=== PATIENT | male | born 1945 | race Caucasian/White ===

== ENCOUNTER 2017-10-02 14:47 | Emergency (ER) | payer MEDICARE, OTHER, SELFPAY ==
[2017-10-02 14:53] VITALS: BP 146/89; PULSE 87; RESP 16; TEMP 36.7; O2SAT 93
[2017-10-02 14:57] VITALS: BP 124/73
--- NOTE | 2017-10-02 15:36 | DI.REPORT_ITS ---
SYMPTOM/DIAGNOSIS: COUGH, SHORTNESS OF BREATH R/O PNEUMONIA PA AND LATERAL CHEST: 10/02 The heart is not enlarged. There appears to be a coronary artery stent. The lungs are clear. No pleural effusion seen. CONCLUSION: No evidence of acute disease.
--- NOTE | 2017-10-02 15:38 | ED.GENADUL_ITS ---
Disposition Clinical Impression: URI (upper respiratory infection), Chronic cough, Bronchitis, Seasonal allergies Disposition: HOME Condition: Stable Instructions: Upper Respiratory Infection (ED), Acute Bronchitis (ED), Acute Cough (ED) Additional Instructions: Drink plenty of fluids and get plenty of rest. Take the steroids until finished. Take the allergy medicine daily. If you have no improvement of symptoms in the next 2-3 days, you may start the antibiotic. Follow-up with your scheduled appointment we have made for you at [facility] on October 18, 2017 at 11:15 AM. Return to the emergency department with any worsening or new concerning symptoms. Prescriptions: Azithromycin [Zithromax] 500 mg PO DAILY 5 Days tab Benzonatate [Tessalon Perles] 100 mg PO TID PRN #12 cap PRN Reason: Cough Loratadine [Claritin] 10 mg PO DAILY 30 Days tab Prednisone 50 mg PO DAILY 4 Days tablet Medical Decision Making - Radiology Data Radiology results: report reviewed, image reviewed Chest x-ray: Negative - Medical Decision Making 1500 -- 71-year-old male with a history of diabetes, coronary artery disease who presents for cough with clear sputum, sinus congestion and clear rhinorrhea with body aches for the past 2 weeks. No relief with Tussionex. No chest pain or shortness of breath. Normal ENT exam. Lungs clear to auscultation. Oxygen saturation 93% on room air. Patient appears nontoxic, airway intact and speaking full sentences. Differential diagnosis includes acute bronchitis, upper respiratory tract infection, pneumonia, seasonal allergies. Patient does state that he seems to develop similar symptoms once yearly around the same time. We discussed that this certainly could be allergies. Will give a dose of prednisone p.o. and send for chest x-ray. 1630 --chest x-ray negative. Patient feels good to go home. Discussed with patient that his symptoms can certainly be viral and/or allergies and will treat with prednisone, Tessalon Perles, Claritin. Also sent home with prescription for Zithromax if symptoms do not improve or worsen. Patient appears nontoxic and in no acute distress. Patient states he does not have a follow-up appointment with his PCP at the [facility] until 2019. Appointment was made by care management for patient with the [facility] on October 18, 2017 for reevaluation. Patient was instructed to return here with any concerns. History of Present Illness - General Chief complaint: RespSymp Stated complaint: SOB/COUGH Time Seen by Provider: 10/02/17 15:00 Source: patient Mode of arrival: ambulatory Limitations: no limitations - History of Present Illness Initial comments: Patient is a 71-year-old male presents here with complaint of cough with clear sputum, sinus congestion, clear nasal discharge, and body aches of the past 2 weeks. Patient states the cough and body aches is bothering him the most. He denies known fever. He has taken Tussionex [id number] without relief. He denies shortness of breath, chest pain, ear pain, sore throat, recent antibiotics or recent hospital admission. - Related Data Aspirin [Aspir 81] 81 mg PO DAILY 01/23/13 Insulin NPH Human Isophane [Novolin N] 18 unit SQ HS 01/23/13 MetFORMIN CR [Glucophage Xr] 500 mg PO BID 01/23/13 Metoprolol [Lopressor] 50 mg PO BID 01/23/13 Famotidine [Pepcid] 20 mg PO BID 01/28/14 Nitroglycerin [Nitrostat] 0.4 mg PO PRN PRN 01/28/14 Simvastatin 20 mg PO DAILY 01/28/14 Hydrochlorothiazide 12.5 mg PO DAILY 06/19/16 Testosterone [Androderm] 1 each TD DAILY 06/19/16 Benzonatate [Tessalon Perles] 200 mg PO TID PRN 12/29/16 Insulin NPH Human Isophane [Novolin N] 16 unit SQ DAILY 12/29/16 Study Drug X 3 Kinds For Gout PO DAILY 12/29/16 Azithromycin [Zithromax Z-Yogi] 250 mg PO DAILY #3 tab 12/30/16 Losartan [Cozaar] 100 mg PO QAM #30 tab 12/30/16 Azithromycin [Zithromax] 500 mg PO DAILY 5 Days tab 10/02/17 Benzonatate [Tessalon Perles] 100 mg PO TID PRN #12 cap 10/02/17 Loratadine [Claritin] 10 mg PO DAILY 30 Days tab 10/02/17 Prednisone 50 mg PO DAILY 4 Days tablet 10/02/17 Allergies Allergy/AdvReac Type Severity Reaction Status Date / Time amoxicillin [Amoxicillin] Allergy Mild Itching Unverified 06/19/16 12:02 Review of Systems Constitutional: denies: chills, fever Eyes: denies: eye pain ENT: congestion. denies: ear pain, dental pain Respiratory: cough. denies: shortness of breath Cardiovascular: denies: chest pain, dyspnea on exertion Gastrointestinal: denies: abdominal pain, nausea, vomiting Genitourinary: denies: urgency, dysuria, frequency Musculoskeletal: denies: back pain Skin: denies: rash, lesions Neurological: denies: headache, weakness, numbness Past Medical History - Past Medical History Medical history: CAD, diabetes, hypertension Surgical history: angioplasty/stent, other (Carotid surgery) - Social History Smoking status: never smoker Alcohol use: occasionally Drug use: none General Exam - General Limitations: no limitations General appearance: alert, in no apparent distress - Eye Eye exam: Present: PERRL, EOMI. Absent: conjunctival injection - ENT ENT exam: Present: normal orophraynx, mucous membranes moist, TM's normal bilaterally, other (No bilateral frontal or maxillary sinus tenderness.) - Neck Neck exam: Present: normal inspection. Absent: lymphadenopathy - Respiratory Respiratory exam: Present: normal lung sounds bilaterally. Absent: respiratory distress, wheezes, rales, rhonchi, stridor - Cardiovascular Cardiovascular Exam: Present: regular rate, normal rhythm. Absent: bradycardia , tachycardia - Neurological Exam Neurological exam: Present: alert, oriented X3 - Psychiatric Psychiatric exam: Present: normal affect - Skin Skin exam: Present: warm, dry, intact Course Vital Signs - 24 hr 10/02/17 10/02/17 14:53 14:57 Temperature 98.1 F Pulse 87 Respiratory 16 Rate Blood Pressure 146/89 124/73 Pulse Oximetry 93 L
[2017-10-02] MEDS: predniSONE 20 MG TAB 60 MG PO (16:05)
--- NOTE | 2017-10-02 16:30 | DI.VRAD_ITS ---
EXAM: XR Chest, 2 Views CLINICAL HISTORY: 71 years old, male; Signs and symptoms; Cough TECHNIQUE: Frontal and lateral views of the chest. COMPARISON: [facility] - PORTABLE CHEST ONE VIEW 12/29/2016 2:40 PM FINDINGS: Lungs: Unremarkable. No consolidation. Pleural space: Unremarkable. No pneumothorax. Heart: Unremarkable. No cardiomegaly. Mediastinum: Unremarkable. Bones/joints: Unremarkable. IMPRESSION: No acute cardiopulmonary pathology. Dictated and Authenticated by: Vic Damico MD. Ordering:SATYA MATTHEWS MD
--- NOTE | 2017-10-02 16:36 | PDOC.ERCMPRO ---
Care Management Progress Note 10/02-Dr. Moralez requested assistance with a PCP (Merlyn Grande at [facility] in [place]) f/u in 1-2 weeks for bronchitis and allergies. Called [facility] and spoke with Pamela. Pamela scheduled Shukri (their soonest available appt) for October 18 at 11:[address] Moralez aware of the above appt and patient given an appt card.
--- NOTE | 2017-10-02 16:38 | CMPROGNOTE_ITS ---
Care Management Progress Note 10/02-Dr. Moralez requested assistance with a PCP (Merlyn Grande at [facility] in [place]) f/u in 1-2 weeks for bronchitis and allergies. Called [facility] and spoke with Pamela. Pamela scheduled Shukri (their soonest available appt) for October 18 at 11:[address] Moralez aware of the above appt and patient given an appt card.
== END 2017-10-02 17:05 | disposition home or self-care (01) ==
PROVIDERS: Emergency Provider Physician Assistant
DX: J06.9 Acute upper respiratory infection, unspecified (principal); J20.9 Acute bronchitis, unspecified; J30.2 Other seasonal allergic rhinitis; E11.22 Type 2 diabetes mellitus with diabetic chronic kidney disease; Z79.4 Long term (current) use of insulin; I12.9 Hypertensive chronic kidney disease with stage 1 through stage 4 chronic kidney disease, or unspecified chronic kidney disease; N18.9 Chronic kidney disease, unspecified
CPT/HCPCS: 71046; 99283; 99284; J7512

== ENCOUNTER 2022-08-20 10:24 | Emergency (ER) | payer OTHER, SELFPAY ==
[2022-08-20] VITALS (32 sets, daily range): BP systolic 114–178; BP diastolic 47–96; PULSE 84–96; RESP 14–25; O2SAT 89–96
--- NOTE | 2022-08-20 10:30 | RT.EKG_ITS ---
APPROVED REPORT Exam: Resting ECG Reason for Exam: dizzy Patient Location: E HR:89 bpm ECG Measurements Heart Rate 89 AXIS GA 197 P -14 QRSd 143 QRS -30 QT 387 T -39 QTc 472 Conclusion Sinus rhythm..rate 80's Left bundle branch block...QRSd>120, broad/notched R ST elevation secondary to IVCD
--- NOTE | 2022-08-20 10:45 | DI.CT_ITS ---
Exam(s) CT HEAD - STROKE PROTOCOL EXAM: CT HEAD - STROKE PROTOCOL CLINICAL HISTORY: expressive aphasia, word finding difficulties. TECHNIQUE: Imaging Protocol: Axial computed tomography images with coronal and sagittal reformatted images were created and reviewed COMPARISON: CR CHEST 2 VIEWS PA,LAT from 10/02/2017 FINDINGS: There are no skull fractures. There is no fluid in the visualized paranasal sinuses. Post inflammato ry retention cysts noted in the right maxillary sinus. No associated fluid level. There is no evidence of intracranial hemorrhage, mass effect, or shift of midline structures. There are no extra-axial fluid collections. The ventricles are not enlarged or shifted and there is no blo od within the ventricular system nor within the basal cisterns. However, there is an abnormal asymmetric area of hypodensity in the upper left frontal lobe consisten t with nonhemorrhagic infarct. Measures approximately 2 x 1.5 cm. IMPRESSION: Nonhemorrhagic left frontal lobe infarct. Report called by myself to ER physician RADIATION DOSE DELIVERED: 723.33mGy.cm Total DLP DATA REPOSITORY: All CT scans at this facility are submitted to the National Radiology Data Registry (NRDR) Dose Index Registry (DIR) with the [employer] ([employer]). RADIATION OPTIMIZATION: All CT scans at this facility use at least one of these dose optimization te chniques: automated exposure control; mA and/or kV adjustment per patient size (includes targeted exa ms where dose is matched to clinical indication); or iterative reconstruction.
[2022-08-20 10:59] LABS: Abs Immature Grans 0.02 10^3/uL (0.0-0.06); Absolute Basophil Count 0.04 10^3/uL (0.0-0.2); Absolute Eosinophil Count 0.14 10^3/uL (0.0-0.7); Absolute Lymphocyte Count 2.51 10^3/uL (1.2-3.4); Absolute Monocyte Count 0.52 10^3/uL (0.1-0.8); Absolute Neutrophil Count 7.32 10^3/uL (1.2-6.7); Basophils % 0.4; Eosinophils % 1.3; HCT 53.1 % (40.0-50.0); Immature Grans % 0.2; Lymphocytes % 23.8; MCH 29.3 pg (27.0-33.0); MCV 91 fL (80-95); MPV 11.7 fL (8.0-11.0); Monocytes % 4.9; Neutrophils % 69.4; Platelet Count 181 10^3/uL (130-400); RBC 5.81 10^6/uL (4.36-5.78); RDW 15.9 % (11.8-14.1); RDW-SD 52.7 fL; WBC 10.55 10^3/uL (4.4-10.8)
[2022-08-20 11:09] LABS: Prothrombin Time 10.4 sec (9.3-11.0)
[2022-08-20 11:17] LABS: ALT 18 U/L (16-63); AST 14 U/L (15-37); Albumin 4.1 g/dL (3.4-5.0); Alkaline Phosphatase 67 U/L (46-116); Anion Gap 6.5 mmol/L (3-11); BUN 20 mg/dL (7-18); Bilirubin, Direct 0.2 mg/dL (0.0-0.2); Bilirubin, Total 0.6 mg/dL (0.2-1.0); CO2 31.5 mmol/L (21.0-32.0); CREATININE 1.4 mg/dL (0.70-1.30); Calcium 9.2 mg/dL (8.5-10.1); Chloride 104 mmol/L (98-107); Estimated GFR 52.74 (mL/min/1.73m2); Glucose 186 mg/dL (74-106); Magnesium 1.7 mg/dL (1.8-2.4); Potassium 4.3 mmol/L (3.5-5.1); Sodium 142 mmol/L (136-145); Total Protein 7.1 g/dL (6.4-8.2); Troponin I < 50 ng/L (<or=60)
--- NOTE | 2022-08-20 11:32 | NUR.NOTE ---
Nursing Note: Per pt, vision changes have been ongoing for weeks. Pt stated, I pulled over twice while driving yesterday, and, becuase my vision was blurry. Per , pt had severe difficulty finding the correct words after coming home from the [employer] yesterday. Speech is slurred, but stated that is normal (baseline) for pt.
--- NOTE | 2022-08-20 11:34 | ED.GENADUL_ITS ---
Discharge Plan Disposition Patient Disposition: [facility] Condition: Serious Discharge Details Chief Complaint: CVA/TIA Clinical Impression: Stroke Primary Care Provider: [facility] ED Provider: Nelly Lynch Home Meds and New Rx's Prescriptions: No Action aspirin [Aspir-81] 81 MG tablet,delayed release (DR/EC) 81 mg PO DAILY insulin NPH isoph U-100 human [Novolin N NPH U-100 Insulin] 100 UNIT/ML suspension 18 unit SQ HS metformin 500 MG tablet extended release 24 hr 500 mg PO BID metoprolol tartrate 25 MG tablet 50 mg PO BID simvastatin 40 MG tablet 20 mg PO DAILY nitroglycerin [Nitrostat] 0.4 MG tablet, sublingual 0.4 mg PO PRN PRN famotidine [Pepcid] 20 MG tablet 20 mg PO BID Androderm 1 EACH patch 24 hour 1 ea Transdermal DAILY hydrochlorothiazide 12.5 MG tablet 12.5 mg PO DAILY famotidine 20 mg Tablet 20 mg PO BID hydrochlorothiazide 25 mg Tablet 25 mg PO 1XD aspirin 81 mg Capsule 81 mg PO 1XD benzonatate 100 MG capsule 200 mg PO TID PRN Study Drug X 3 Kinds For Gout PO DAILY insulin NPH isoph U-100 human [Novolin N NPH U-100 Insulin] 100 UNIT/ML suspension 16 unit SQ DAILY azithromycin 250 MG tablet 250 mg PO DAILY Qty: 3 0RF losartan 100 MG tablet 100 mg PO QAM Qty: 30 2RF benzonatate 100 MG capsule 100 mg PO TID PRN (Reason: Cough) Qty: 12 0RF azithromycin [Zithromax TRI-ELI] 500 MG tablet 500 mg PO DAILY 5 Days 0RF Medical Decision Making 76yo M with history of diabetes, HTN, HLD, no prior strokes, presenting for expressive aphasia and word finding difficulties. Symptoms started yesterday afternoon, approximately 3-4pm. Vital signs reassuring. Non-focal neurological exam, however at bedside states he is still having difficulty speaking compared to baseline though his speech sounds normal. Out of lytic window. EKG NSR, LBBB, no suggestion of occlusive AL. Head CT ordered and independently reviewed; no intracranial hemmoraghe, agree with radiology read below, likely acute infarct in frontal lobe. Labs reviewed, CBC & CMP with no significant abnormalities to otherwise explain patient's symptoms. Troponin negative. Patient and advised of CT findings. Given ASA and loading dose of Plavix. Given acute stroke, warrants transfer to facility for neuro-stroke care. Accepted to [facility] under Dr. Reynaldo Porter; awaiting transfer. Lab Data Lab results narrative: Laboratory Tests Range/Units 08/20/22 08/20/22 08/20/22 10:51 10:51 10:51 WBC (4.4-10.8) 10^3/uL 10.55 RBC (4.36-5.78) 10^6/uL 5.81 H Hgb (13.5-17.5) g/dL 17.0 Hct (40.0-50.0) % 53.1 H MCV (80-95) fL 91 MCH (27.0-33.0) pg 29.3 MCHC (32.0-36.0) % 32.0 RDW (11.8-14.1) % 15.9 H Plt Count (130-400) 10^3/uL 181 MPV (8.0-11.0) fL 11.7 H Immature Gran % 0.2 Neutrophils % 69.4 Lymphocytes % 23.8 Monocytes % 4.9 Eosinophils % 1.3 Basophils % 0.4 Nucleated RBC % (0.0-0.3) % 0.0 Absolute Neutrophils (1.2-6.7) 10^3/uL 7.32 H Absolute Lymphocytes (1.2-3.4) 10^3/uL 2.51 Absolute Monocytes (0.1-0.8) 10^3/uL 0.52 Absolute Eosinophils (0.0-0.7) 10^3/uL 0.14 Absolute Basophils (0.0-0.2) 10^3/uL 0.04 PT (9.3-11.0) sec 10.4 INR (0.9-1.1) 1.0 Sodium (136-145) mmol/L 142 Potassium (3.5-5.1) mmol/L 4.3 Chloride (98-107) mmol/L 104 Carbon Dioxide (21.0-32.0) mmol/L 31.5 Anion Gap (3-11) mmol/L 6.5 BUN (7-18) mg/dL 20 H Creatinine (0.70-1.30) mg/dL 1.4 H Est GFR (CKD-EPI 2020) (mL/min/1.73m2) 52.74 Glucose (74-106) mg/dL 186 H Calcium (8.5-10.1) mg/dL 9.2 Magnesium (1.8-2.4) mg/dL 1.7 L Total Bilirubin (0.2-1.0) mg/dL 0.6 Conjugated Bilirubin (0.0-0.2) mg/dL 0.2 AST (15-37) U/L 14 L ALT (16-63) U/L 18 Alkaline Phosphatase (46-116) U/L 67 Troponin I (<or=60) ng/L < 50 Total Protein (6.4-8.2) g/dL 7.1 Albumin (3.4-5.0) g/dL 4.1 HPI General Date/Time Provider Initiated Documentation: 08/20/22 10:35 . Limitations to Documentation: no limitations . Information obtained by: patient and family . HPI Narrative: 76yo M with history of diabetes, HTN, HLD, no prior strokes, presenting for expressive aphasia and word finding difficulties. Symptoms started yesterday afternoon, approximately 3-4pm. Had difficultly using his cell phone to pay bills which is not normal for him. No numbness/tingling/weakness/vertigo. Currently has moderate HENLEY, no N/V. No chest pain or shortness of breath or palpitations. No syncope/presyncope, no recent head trauma or surgery or falls, not on AC. He is otherwise in his usual state of health. Related Data Home Medications Medication Instructions Recorded Confirmed aspirin 81 mg tablet,delayed 81 mg PO DAILY 01/23/13 12/29/16 release (Aspir-) insulin NPH isoph U-100 human 100 18 unit SQ HS 01/23/13 12/29/16 unit/mL subcutaneous suspension (Novolin N NPH U-100 Insulin isophane) metformin 500 mg tablet,extended 500 mg PO BID 01/23/13 08/20/22 release 24 hr metoprolol tartrate 25 mg tablet 50 mg PO BID 01/23/13 08/20/22 famotidine 20 mg tablet (Pepcid) 20 mg PO BID 01/28/14 12/29/16 nitroglycerin 0.4 mg sublingual 0.4 mg PO PRN PRN 01/28/14 08/20/22 tablet (Nitrostat) simvastatin 40 mg tablet 20 mg PO DAILY 01/28/14 08/20/22 hydrochlorothiazide 12.5 mg tablet 12.5 mg PO DAILY 06/19/16 12/29/16 testosterone 4 mg/24 hr 1 ea transdermal DAILY 06/19/16 08/20/22 transdermal 24 hour patch (Androderm) Study Drug X 3 Kinds For Gout PO DAILY 12/29/16 benzonatate 100 mg capsule 200 mg PO TID PRN 12/29/16 12/29/16 insulin NPH isoph U-100 human 100 16 unit SQ DAILY 12/29/16 12/29/16 unit/mL subcutaneous suspension (Novolin N NPH U-100 Insulin isophane) azithromycin 250 mg tablet 250 mg PO DAILY ##3 12/30/16 losartan 100 mg tablet 100 mg PO QAM #30 tabs 12/30/16 08/20/22 azithromycin 500 mg tablet 500 mg PO DAILY 5 days 10/02/17 (Zithromax TRI-ELI) benzonatate 100 mg capsule 100 mg PO TID PRN Cough #12 caps 10/02/17 aspirin 81 mg capsule 81 mg PO 1XD 08/20/22 08/20/22 famotidine 20 mg tablet 20 mg PO BID 08/20/22 08/20/22 hydrochlorothiazide 25 mg tablet 25 mg PO 1XD 08/20/22 08/20/22 Previous Rx's Medication Instructions Recorded azithromycin 250 mg tablet 250 mg PO DAILY ##3 12/30/16 losartan 100 mg tablet 100 mg PO QAM #30 tabs 12/30/16 azithromycin 500 mg tablet 500 mg PO DAILY 5 days 10/02/17 (Zithromax TRI-ELI) benzonatate 100 mg capsule 100 mg PO TID PRN Cough #12 caps 10/02/17 Allergies Allergy/AdvReac Type Severity Reaction Status Date / Time amoxicillin [Amoxicillin] Allergy Mild Itching Unverified 08/20/22 10:46 General Stated Complaint: CVA/TIA MAGY: 2 Review of Systems Narrative: see HPI PFSH All Active Problems (Updated 08/20/22 @ 12:32 by Nelly Lynch MD) Chest pain (Acute 01/23/13) Unstable angina (Acute 01/23/13) Diabetes mellitus type 2, controlled (Chronic) Hypertension (Chronic) Hyperlipidemia (Chronic) Stroke (Chronic) Social History Smoking/Tobacco Use Status: Former Tobacco Use Smoking risk assessment performed?: Yes Drug use: Never Substance use type: does not use Do you feel safe in your relationship?: Yes Exam Narrative Exam Narrative: General: Alert, well appearing, well nourished, in no acute distress. Head: Normocephalic, atraumatic Neck: Trachea midline, Neck supple. ENT: MMM. No oropharygneal lesions or exudate. Cardiac: RRR, no murmurs appreciated Resp: No respiratory distress. CTAB. Abd: Soft, non-distended, nontender : No suprapubic tenderness. No CVA tenderness. Extremities: No deformities. No peripheral edema. Neuro: Oriented to person, place, and month (not year). PERRL. EOMI. Fluent speech, mild dysarthria (speech at baseline per at bedside). No difficulty naming objects. Follows 3 step commands. Motor- 5/5 strength symmetric bilateral upper and lower extremities including shoulder abductors/adductors, elbow flexors/extensors, wrist flexors/extensors, finger abductors/adductors, hipflexors/extensors, knee flexors/extensors, ankle dorsiflexors and planter flexors. Sensation- Intact to light touch and symmetric multiple dermatomes including upper and lower extrmeities Coordination- No dysmetria on finger to nose Reflexes- 1/4 achilles & patellar, no clonus CRANIAL NERVES: II: Pupils equal and reactive, III, IV, : EOM intact, no gaze preference or deviation, no nystagmus. V: normal sensation in V1, V2, and V3 segments bilaterally VII: no asymmetry, no nasolabial fold flattening VIII: normal hearing to speech IX, X: normal palatal elevation, no uvular deviation XI: 5/5 head turn and 5/5 shoulder shrug bilaterally XII: midline tongue protrusion Course Vital Signs Vital signs: Vital Signs Pulse 90 08/20/22 10:35 Respiratory Rate 15 08/20/22 10:35 Blood Pressure 168/96 H 08/20/22 10:35 Pulse Oximetry 96 08/20/22 10:35 Pulse 89 08/20/22 11:15 Pulse 89 08/20/22 11:20 Respiratory Rate 20 08/20/22 11:20 Respiratory Effort Normal 08/20/22 11:05 Respiratory Depth Normal 08/20/22 11:05 Respiratory Pattern Normal 08/20/22 11:05 Blood Pressure 142/60 H 08/20/22 11:15 Blood Pressure Mean 80 08/20/22 11:15 Blood Pressure Position Supine 08/20/22 10:35 Pulse Oximetry 92 08/20/22 11:20 Oxygen Delivery Method Room Air 08/20/22 10:35 Oxygen Flow Rate 0 08/20/22 10:35 Pain Level 8 08/20/22 10:35 Lab/Test Results Lab/Test Results: Laboratory Tests Range/Units 08/20/22 08/20/22 08/20/22 10:51 10:51 10:51 WBC (4.4-10.8) 10^3/uL 10.55 RBC (4.36-5.78) 10^6/uL 5.81 H Hgb (13.5-17.5) g/dL 17.0 Hct (40.0-50.0) % 53.1 H MCV (80-95) fL 91 MCH (27.0-33.0) pg 29.3 MCHC (32.0-36.0) % 32.0 RDW (11.8-14.1) % 15.9 H Plt Count (130-400) 10^3/uL 181 MPV (8.0-11.0) fL 11.7 H Immature Gran % 0.2 Neutrophils % 69.4 Lymphocytes % 23.8 Monocytes % 4.9 Eosinophils % 1.3 Basophils % 0.4 Nucleated RBC % (0.0-0.3) % 0.0 Absolute Neutrophils (1.2-6.7) 10^3/uL 7.32 H Absolute Lymphocytes (1.2-3.4) 10^3/uL 2.51 Absolute Monocytes (0.1-0.8) 10^3/uL 0.52 Absolute Eosinophils (0.0-0.7) 10^3/uL 0.14 Absolute Basophils (0.0-0.2) 10^3/uL 0.04 PT (9.3-11.0) sec 10.4 INR (0.9-1.1) 1.0 Sodium (136-145) mmol/L 142 Potassium (3.5-5.1) mmol/L 4.3 Chloride (98-107) mmol/L 104 Carbon Dioxide (21.0-32.0) mmol/L 31.5 Anion Gap (3-11) mmol/L 6.5 BUN (7-18) mg/dL 20 H Creatinine (0.70-1.30) mg/dL 1.4 H Est GFR (CKD-EPI 2020) (mL/min/1.73m2) 52.74 Glucose (74-106) mg/dL 186 H Calcium (8.5-10.1) mg/dL 9.2 Magnesium (1.8-2.4) mg/dL 1.7 L Total Bilirubin (0.2-1.0) mg/dL 0.6 Conjugated Bilirubin (0.0-0.2) mg/dL 0.2 AST (15-37) U/L 14 L ALT (16-63) U/L 18 Alkaline Phosphatase (46-116) U/L 67 Troponin I (<or=60) ng/L < 50 Total Protein (6.4-8.2) g/dL 7.1 Albumin (3.4-5.0) g/dL 4.1 Critical Care Time Critical Care Time Critical Care Time: Yes Total Critical Care Time: 38 Attestation: Due to a high probability of clinically significant, life threatening deterioration, the patient required my highest level of preparedness to intervene emergently and I personally spent this critical care time directly and personally managing the patient. This critical care time included obtaining a history; examining the patient; pulse oximetry; ordering and review of studies; arranging urgent treatment with development of a management plan; evaluation of patient's response to treatment; frequent reassessment; and, discussions with other providers. This critical care time was performed to assess and manage the high probability of imminent, life-threatening deterioration that could result in multi-organ failure. It was exclusive of separately billable procedures.
[2022-08-20] MEDS: Aspirin 325 MG TAB PO (12:40)
[2022-08-20] MEDS: Clopidogrel 300 MG TAB 600 MG PO (12:41)
[2022-08-20 13:34] LABS: COVID-19 PCR Negative (Negative)
[2022-08-20 13:40] LABS: Source Nasal/Nares
[2022-08-20 13:44] LABS: Bilirubin Negative (Negative); Blood Trace-lysed (Negative); Clarity Clear (Clear); Glucose >=1000 mg/dL (Negative); Ketones Negative (Negative); Leukocyte Esterase Negative (Negative); Nitrite Negative (Negative); Specific Gravity 1.015 (1.005-1.025); Urobilinogen 0.2 mg/dL (Up to 0.2)
[2022-08-20 13:50] LABS: Bacteria Negative HPF (Negative); C & S Indicated? No; Casts 0-2 Hyaline LPF (Negative); Crystals Negative HPF (Negative); Epithelial Cells Rare HPF (Negative); Mucus Negative (Negative); RBC 0-2 HPF (0-2); WBC Negative HPF (0-5)
[2022-08-20 13:57] LABS: *AMPHETAMINES SCREEN URINE Negative (Negative); *BARBITURATES SCREEN URINE Negative (Negative); *BENZODIAZEPINES SCREEN URINE Negative (Negative); Cannabinoids THC Negative (Negative); Cocaine Screen,Urine Negative (Negative); METHADONE URINE SCREEN Negative (Negative); OPIATES URINE SCREEN Negative (Negative)
[2022-08-20 13:59] LABS: Tricyclic Antidepressants Negative (Negative)
--- NOTE | 2022-08-20 14:38 | NUR.NOTE ---
Nursing Note: This RN gave report to [place] KATIE Good at 1432.
== END 2022-08-20 14:24 ==
PROVIDERS: Emergency Provider Student in an Organized Health Care Education/Training Program
DX: I63.89 Other cerebral infarction (principal); I44.7 Left bundle-branch block, unspecified; R51.9 Headache, unspecified; R42 Dizziness and giddiness; I25.110 Atherosclerotic heart disease of native coronary artery with unstable angina pectoris; Z79.82 Long term (current) use of aspirin; Z79.4 Long term (current) use of insulin; E11.9 Type 2 diabetes mellitus without complications; I10 Essential (primary) hypertension; E78.5 Hyperlipidemia, unspecified
CPT/HCPCS: 36415; 80053; 80076; 80307; 82962; 87635; 93005; 99291; 70450; 81003; 81015; 83735; 84484; 85025; 85610; 93010

== ENCOUNTER 2022-09-12 15:46 | Emergency (ER) | payer OTHER, SELFPAY ==
[2022-09-12] VITALS (42 sets, daily range): BP systolic 141–184; BP diastolic 62–121; PULSE 89–104; RESP 11–27; O2SAT 96
--- NOTE | 2022-09-12 15:45 | RT.EKG_ITS ---
APPROVED REPORT Exam: Resting ECG Reason for Exam: cva? Patient Location: E HR:93 bpm ECG Measurements Heart Rate 93 AXIS HI 199 P 54 QRSd 112 QRS -46 QT 351 T 76 QTc 436 Conclusion Sinus rhythm...normal P axis, V-rate 60- 99 Incomplete left bundle branch block...QRSd>110mS, terminal axis(-90,-1) Probable left ventricular hypertrophy...multiple LVH criteria
--- NOTE | 2022-09-12 16:20 | ED.GENADUL_ITS ---
Discharge Plan Disposition Patient Disposition: Transfer-Acute Inpatient Care Specific Acute Inpt Facility: [facility] Condition: Critical Discharge Details Clinical Impression: Acute CVA (cerebrovascular accident) Primary Care Provider: Kulwant Escobedo ED Provider: Josué Chacon [place] Meds and New Rx's Prescriptions: No Action aspirin [Aspir-81] 81 MG tablet,delayed release (DR/EC) 81 mg PO DAILY insulin NPH isoph U-100 human [Novolin N NPH U-100 Insulin] 100 UNIT/ML suspension 18 unit SQ HS metformin 500 MG tablet extended release 24 hr 500 mg PO BID metoprolol tartrate 25 MG tablet 50 mg PO BID simvastatin 40 MG tablet 20 mg PO DAILY nitroglycerin [Nitrostat] 0.4 MG tablet, sublingual 0.4 mg PO PRN PRN famotidine [Pepcid] 20 MG tablet 20 mg PO BID Androderm 1 EACH patch 24 hour 1 ea Transdermal DAILY hydrochlorothiazide 12.5 MG tablet 12.5 mg PO DAILY famotidine 20 mg Tablet 20 mg PO BID aspirin 81 mg Capsule 81 mg PO 1XD losartan 100 MG tablet 50 mg PO QAM acetaminophen 325 mg Tablet 325 mg PO 3XD PRN (Reason: Pain) cetirizine 10 mg Tablet 10 mg PO 1XD allopurinol 300 mg Tablet 300 mg PO 1XD ipratropium bromide 42 mcg (0.06 %) [place],Non-Aerosol 42 mcg INTRANASAL 3XD Rx Instructions: 2 sprays each nostril fluticasone propionate 50 mcg/actuation [place],Suspension 50 mcg INTRANASAL 1XD Rx Instructions: 2 sprays into each nostril diclofenac sodium 1 % Gel 4 g TOPICAL 4XD MDD 8 PRN (Reason: Pain) cholecalciferol (vitamin D3) 50 mcg (2,000 unit) Tablet 50 mcg PO 1XD empagliflozin 25 mg Tablet 25 mg PO 1XD cyanocobalamin (vitamin B-12) 1,000 mcg Capsule 1,000 mcg PO 1XD semaglutide 1 mg/dose (2 mg/1.5 mL) Pen Injector 1 mg SUBCUT QWEEK insulin glargine-yfgn 100 unit/mL (3 mL) Insulin Pen 100 unit SUBCUT 1XD benzonatate 100 MG capsule 200 mg PO TID PRN Study Drug X 3 Kinds For Gout PO DAILY insulin NPH isoph U-100 human [Novolin N NPH U-100 Insulin] 100 UNIT/ML suspen ariana 16 unit SQ DAILY azithromycin 250 MG tablet 250 mg PO DAILY Qty: 3 0RF benzonatate 100 MG capsule 100 mg PO TID PRN (Reason: Cough) Qty: 12 0RF azithromycin [Zithromax TRI-ELI] 500 MG tablet 500 mg PO DAILY 5 Days 0RF Discharge Data Discharge Date/Time-TO BE ENTERED AT DEPARTURE: 09/12/22 18:11 Medical Decision Making 1630 -- 76yo male with history of coronary artery disease status post stent, diabetes, hypertension, hyperlipidemia, 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 NIH stroke scale on initial evaluation 15. Blood sugar within normal limit. Patient is hypertensive with blood pressure 182/67 on arrival. Blood pressure improved without treatment to 161/75. Patient saturating well in no respiratory distress. Airway intact. Consider ischemic CVA versus intracranial hemorrhage. Symptoms are improving which is reassuring. At this time,[facility] does not have CT or MRI capability. I will initiate emergent transfer to stroke center. I initially contacted [facility] to request transfer. [facility] transfer center notes no intervential neuro capability and delcines transfer. I called [facility] transfer center to request transfer. Dr. Fonseca called back. We discussed ED presentation and course. She will accept the patient in transfer ED to ED. No ground crew was immediately available. We will attempt to arrange air transportation. Lab Data Lab results reviewed: Yes I reviewed the patient's lab results. Labs: Laboratory Tests Range/Units 09/12/22 15:55 WBC (4.4-10.8) 10^3/uL 11.26 H RBC (4.36-5.78) 10^6/uL 5.95 H Hgb (13.5-17.5) g/dL 17.4 Hct (40.0-50.0) % 54.1 H MCV (80-95) fL 91 MCH (27.0-33.0) pg 29.2 MCHC (32.0-36.0) % 32.2 RDW (11.8-14.1) % 15.9 H Plt Count (130-400) 10^3/uL 228 MPV (8.0-11.0) fL 11.4 H Immature Gran % 0.2 Neutrophils % 60.7 Lymphocytes % 31.3 Monocytes % 5.2 Eosinophils % 2.2 Basophils % 0.4 Nucleated RBC % (0.0-0.3) % 0.0 Absolute Neutrophils (1.2-6.7) 10^3/uL 6.83 H Absolute Lymphocytes (1.2-3.4) 10^3/uL 3.52 H Absolute Monocytes (0.1-0.8) 10^3/uL 0.59 Absolute Eosinophils (0.0-0.7) 10^3/uL 0.25 Absolute Basophils (0.0-0.2) 10^3/uL 0.05 HPI General Mode of arrival: ambulatory . Date/Time Provider Initiated Documentation: 09/12/22 15:57 . Limitations to Documentation: physical limitation . Information obtained by: patient and family . HPI Narrative: 76-year-old male with history of coronary artery disease status post stent, diabetes type 2, hypertension, hyperlipidemia, CVA with residual left-sided weakness that occurred approximately 4 weeks ago, presents today with his who is concerned about slurred speech and right facial droop and right sided weakness that came on suddenly about 15 minutes prior to arrival. Symptoms were severe. They have improved since onset. He has no associated headache. Related Data Home Medications Medication Instructions Recorded Confirmed aspirin 81 mg tablet,delayed 81 mg PO DAILY 01/23/13 12/29/16 release (Aspir-) insulin NPH isoph U-100 human 100 18 unit SQ HS 01/23/13 12/29/16 unit/mL subcutaneous suspension (Novolin N NPH U-100 Insulin isophane) metformin 500 mg tablet,extended 500 mg PO BID 01/23/13 09/12/22 release 24 hr metoprolol tartrate 25 mg tablet 50 mg PO BID 01/23/13 08/20/22 famotidine 20 mg tablet (Pepcid) 20 mg PO BID 01/28/14 12/29/16 nitroglycerin 0.4 mg sublingual 0.4 mg PO PRN PRN 01/28/14 09/12/22 tablet (Nitrostat) simvastatin 40 mg tablet 20 mg PO DAILY 01/28/14 08/20/22 hydrochlorothiazide 12.5 mg tablet 12.5 mg PO DAILY 06/19/16 12/29/16 testosterone 4 mg/24 hr 1 ea transdermal DAILY 06/19/16 08/20/22 transdermal 24 hour patch (Androderm) Study Drug X 3 Kinds For Gout PO DAILY 12/29/16 benzonatate 100 mg capsule 200 mg PO TID PRN 12/29/16 12/29/16 insulin NPH isoph U-100 human 100 16 unit SQ DAILY 12/29/16 12/29/16 unit/mL subcutaneous suspension (Novolin N NPH U-100 Insulin isophane) azithromycin 250 mg tablet 250 mg PO DAILY ##3 12/30/16 azithromycin 500 mg tablet 500 mg PO DAILY 5 days 10/02/17 (Zithromax TRI-ELI) benzonatate 100 mg capsule 100 mg PO TID PRN Cough #12 caps 10/02/17 aspirin 81 mg capsule 81 mg PO 1XD 08/20/22 09/12/22 famotidine 20 mg tablet 20 mg PO BID 08/20/22 09/12/22 losartan 100 mg tablet 50 mg PO QAM 08/20/22 08/20/22 acetaminophen 325 mg tablet 325 mg PO 3XD PRN Pain 09/12/22 09/12/22 allopurinol 300 mg tablet 300 mg PO 1XD 09/12/22 09/12/22 cetirizine 10 mg tablet 10 mg PO 1XD 09/12/22 09/12/22 cholecalciferol (vitamin D3) 50 50 mcg PO 1XD 09/12/22 09/12/22 mcg (2,000 unit) tablet cyanocobalamin (vitamin B-12) 1,000 mcg PO 1XD 09/12/22 09/12/22 1,000 mcg capsule diclofenac sodium 1 % topical gel 4 g topical 4XD PRN Pain 09/12/22 09/12/22 empagliflozin 25 mg tablet 25 mg PO 1XD 09/12/22 09/12/22 fluticasone propionate 50 50 mcg intranasal 1XD 09/12/22 09/12/22 mcg/actuation nasal spray,suspension insulin glargine-yfgn 100 unit/mL 100 unit subcut 1XD 09/12/22 09/12/22 (3 mL) subcutaneous pen ipratropium bromide 42 mcg (0.06 42 mcg intranasal 3XD 09/12/22 09/12/22 %) nasal spray semaglutide 1 mg/dose (2 mg/1.5 1 mg subcut QWEEK 09/12/22 09/12/22 mL) subcutaneous pen injector Previous Rx's Medication Instructions Recorded azithromycin 250 mg tablet 250 mg PO DAILY ##3 12/30/16 azithromycin 500 mg tablet 500 mg PO DAILY 5 days 10/02/17 (Zithromax TRI-ELI) benzonatate 100 mg capsule 100 mg PO TID PRN Cough #12 caps 10/02/17 Allergies Allergy/AdvReac Type Severity Reaction Status Date / Time amoxicillin [Amoxicillin] Allergy Mild Itching Unverified 09/12/22 16:58 General Stated Complaint: CVA/TIA MAGY: 1 Review of Systems All systems reviewed & are unremarkable except as noted in HPI and below PFSH All Active Problems (Updated 09/12/22 @ 16:44 by Josué Chacon MD) Chest pain (Acute 01/23/13) Unstable angina (Acute 01/23/13) Diabetes mellitus type 2, controlled (Chronic) Hypertension (Chronic) Hyperlipidemia (Chronic) Stroke (Chronic) Acute CVA (cerebrovascular accident) (Acute) Social History Smoking/Tobacco Use Status: Former Tobacco Use Smoking risk assessment performed?: Yes Drug use: Never Substance use type: does not use Do you feel safe in your relationship?: Yes Exam Const General: cooperative and no acute distress HENMT Head: normocephalic and atraumatic Mouth: moist mucous membranes Eyes Conjunctivae: normal conjunctivae Sclera: normal sclerae Neck Neck: trachea midline Resp Auscultation: clear to auscultation bilaterally, no rales, no rhonchi and no wheezes Cardio Rate: regular rate and not tachycardic Rhythm: regular rhythm GI Palpation: soft, not firm, no guarding, no masses, not rigid and nontender Skin General skin exam: no rashes or lesions noted Neuro General: patient alert, patient awake and tone normal Cranial Nerves: PERRL, accommodation normal, EOM intact bilaterally, no nystagmus, facial strength abnormal (mild right weakness), tongue midline, able to rotate head bilaterally and able to elevate shoulders bilaterally Cognition: normal cognition Speech: expressive aphasia (mild) Motor: other (4/5 RUE, RLE; 5/5 LUE, LLE) Other: NIH stroke scale 15 Extrem General: no edema Psych Appearance: grossly normal Mental Status: mental status grossly normal Course Vital Signs Vital signs: Vital Signs Pulse 101 H 09/12/22 15:53 Respiratory Rate 20 09/12/22 15:53 Blood Pressure 182/67 H 09/12/22 15:53 Pulse Oximetry 96 09/12/22 15:53 Pulse 101 H 09/12/22 15:53 Respiratory Rate 20 09/12/22 15:53 Blood Pressure 182/67 H 09/12/22 15:53 Blood Pressure Position Sitting 09/12/22 15:53 Pulse Oximetry 96 09/12/22 15:53 Oxygen Delivery Method Room Air 09/12/22 15:53 Oxygen Flow Rate 0 09/12/22 15:53 Critical Care Time Critical Care Time Critical Care Time: Yes Total Critical Care Time: 45 Attestation: I spent greater than 45 minutes addressing this patient's immediate life threats. Please see MDM section of note. This time was spent engaged in work directly related to the patient's care, exclusive of separate procedures, and failure to initiate these interventions would have likely resulted in clinically significant or life threatening deterioration in the patient's condition.
[2022-09-12 16:21] LABS: Abs Immature Grans 0.02 10^3/uL (0.0-0.06); Absolute Basophil Count 0.05 10^3/uL (0.0-0.2); Absolute Eosinophil Count 0.25 10^3/uL (0.0-0.7); Absolute Neutrophil Count 6.83 10^3/uL (1.2-6.7); Basophils % 0.4; Eosinophils % 2.2; HCT 54.1 % (40.0-50.0); HGB 17.4 g/dL (13.5-17.5); Immature Grans % 0.2; Lymphocytes % 31.3; MCH 29.2 pg (27.0-33.0); MCHC 32.2 % (32.0-36.0); MCV 91 fL (80-95); MPV 11.4 fL (8.0-11.0); Monocytes % 5.2; Neutrophils % 60.7; Platelet Count 228 10^3/uL (130-400); RBC 5.95 10^6/uL (4.36-5.78); RDW 15.9 % (11.8-14.1); RDW-SD 53.3 fL; WBC 11.26 10^3/uL (4.4-10.8)
[2022-09-12 16:25] LABS: Absolute Lymphocyte Count 3.52 10^3/uL (1.2-3.4); Absolute Monocyte Count 0.59 10^3/uL (0.1-0.8)
[2022-09-12 16:38] LABS: ALT 19 U/L (16-63); AST 12 U/L (15-37); Albumin 4.2 g/dL (3.4-5.0); Alkaline Phosphatase 81 U/L (46-116); Anion Gap 5.9 mmol/L (3-11); BUN 16 mg/dL (7-18); Bilirubin, Total 0.6 mg/dL (0.2-1.0); CO2 33.1 mmol/L (21.0-32.0); CREATININE 1.3 mg/dL (0.70-1.30); Calcium 9.6 mg/dL (8.5-10.1); Chloride 104 mmol/L (98-107); Estimated GFR 57.65 (mL/min/1.73m2); Glucose 87 mg/dL (74-106); Magnesium 1.7 mg/dL (1.8-2.4); Potassium 4.1 mmol/L (3.5-5.1); Sodium 143 mmol/L (136-145); Total Protein 7.4 g/dL (6.4-8.2); Troponin I < 50 ng/L (<or=60)
== END 2022-09-12 18:11 | disposition short-term general hospital (02) ==
PROVIDERS: Emergency Provider Student in an Organized Health Care Education/Training Program; PCP Internal Medicine
DX: I63.9 Cerebral infarction, unspecified (principal); R47.81 Slurred speech
CPT/HCPCS: 36416; 80053; 82962; 93005; 99291; 83735; 84484; 85025; 93010

== ENCOUNTER 2022-10-02 13:57 | Inpatient (IN) | payer OTHER, SELFPAY ==
[2022-10-02] VITALS (39 sets, daily range): BP systolic 129–182; BP diastolic 60–91; PULSE 91–106; RESP 13–22; TEMP 36.3; O2SAT 90–97
--- NOTE | 2022-10-02 14:00 | DI.CT_ITS ---
Exam(s) CT BRAIN NECK CTA EXAM: CT BRAIN NECK CTA CLINICAL HISTORY: Right sided facial droop hx CVA. TECHNIQUE: Imaging Protocol: Axial CT angiography was performed with multi-slice acquisition and mu lti-planar and/or 3D reconstructions. CONTRAST MATERIAL: Intravenous: Omnipaque 350 Contrast volume:structured data in ml COMPARISON: CT ABD PELVIS WITH CONTRAST from 02/28/[address] HEAD - STROKE PROTOCOL from 08/20/2022 FINDINGS: CTA Neck W: Aortic arch anatomy: There is focal outpouching of the anterior aspect of the aortic arch consistent with focal aneurysm. 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 There is no c ontrast flow seen within this vessel in the neck and skull base until it appears to be reconstituted within the left cavernous sinus. The opposite-right common carotid artery is nicely patent without s ignificant stenosis. Is no significant stenosis at the carotid bulb but there is calcified circumfer ential plaque in the proximal right internal carotid artery in the neck with approximately 30 percent stenosis. Above this level the right ICA is patent in the upper neck and skull base. Posterior circulation: Both vertebral arteries originate in conventional fashion off of the subclavian arteries and there is no obvious stenosis at the origin of the vertebral arteries. Both vertebral arteries exhibit normal luminal diameters within the foramen transversarium. Both randal tebral arteries contribute to the formation of the basilar artery at the skull base. The right is th e dominant contributor with thinner left vertebral artery contributing to the basilar artery formatio n at the skull base. CTA Brain W: Anterior circulation: The occluded left internal carotid artery is reconstituted in the proximal aspect of the cavernous si nus and patent above this level. Left ICA also patent Right internal carotid artery in the skull base is patent as well as within the cavernous sinus. Sup raclinoid aspect is patent. Both A1 segments are patent as are the anterior cerebral arteries and th ere is no evidence of aneurysm at the level of the anterior communicating artery. Both middle cerebral arteries are patent with no evidence of significant stenosis nor intraluminal th rombus. There also no aneurysms of these vessels. Posterior circulation: The basilar artery ascends in the midline. Distally it gives off patent bilateral superior cerebella r arteries. Above this level the basilar artery terminates as patent bilateral posterior cerebral arteries. There is no evidence of aneurysm at the tip of the basilar artery nor elsewhere in the [id number] is. CT BRAIN: There is no evidence of intracranial hemorrhage, mass effect, or shift of midline structures. There are no extra-axial fluid collections. Ventricles are not enlarged or shifted. There are no ring enh ancing lesions in the brain and no abnormal meningeal enhancement. Previously described area of abnormal hypodensity in the left frontal lobe white matter is again note d. There is also now subtle area of hypodensity in the left-sided white matter more posteriorly towa rds the parietal lobe. No abnormal white matter hypodensity on the opposite-right side. IMPRESSION: 1. 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 The ipsilateral left inte rnal carotid artery is reconstituted in the inferior aspect of the left cavernous sinus. 2. Patent vertebral arteries. 3. Patent intracranial arteries. 4. Nonhemorrhagic area of ischemic change in the left frontal white matter again noted as well as dev eloping more posteriorly in the left periventricular white matter. Follow-up MRI recommended. Called by myself to ER physician. RADIATION DOSE DELIVERED: 2,036mGy.cm Total DLP DATA REPOSITORY: All CT scans at this facility are submitted to the National Radiology Data Registry (NRDR) Dose Index Registry (DIR) with the [employer] ([employer]). RADIATION OPTIMIZATION: All CT scans at this facility use at least one of these dose optimization te chniques: automated exposure control; mA and/or kV adjustment per patient size (includes targeted exa ms where dose is matched to clinical indication); or iterative reconstruction.
--- NOTE | 2022-10-02 14:00 | RT.EKG_ITS ---
APPROVED REPORT Exam: Resting ECG Reason for Exam: possible stroke Patient Location: E HR:97 bpm ECG Measurements Heart Rate 97 AXIS SD 205 P 39 QRSd 115 QRS -63 QT 352 T 66 QTc 447 Conclusion Sinus rhythm...normal P axis, V-rate 60- 99 Incomplete left bundle branch block...QRSd>110mS, terminal axis(-90,-1) Probable left ventricular hypertrophy...(RaVL+SV3)xQRSd >280 ST elevation, consider inferior injury...ST >0.08mV, II III aVF sinus rhythm, left axis
[2022-10-02] MEDS: Normal Saline - Diluent 50 ML VIAL IJ (14:12)
[2022-10-02] MEDS: Normal Saline Flush 10 ML SYR IVP (14:13)
[2022-10-02 14:25] LABS: Abs Immature Grans 0.03 10^3/uL (0.0-0.06); Absolute Basophil Count 0.05 10^3/uL (0.0-0.2); Absolute Eosinophil Count 0.22 10^3/uL (0.0-0.7); Absolute Lymphocyte Count 2.92 10^3/uL (1.2-3.4); Absolute Neutrophil Count 6.97 10^3/uL (1.2-6.7); Basophils % 0.5; HCT 53.1 % (40.0-50.0); HGB 16.8 g/dL (13.5-17.5); Immature Grans % 0.3; Lymphocytes % 27.1; MCH 28.9 pg (27.0-33.0); MCHC 31.6 % (32.0-36.0); MCV 91 fL (80-95); MPV 11.6 fL (8.0-11.0); Monocytes % 5.6; Neutrophils % 64.5; Platelet Count 227 10^3/uL (130-400); RBC 5.82 10^6/uL (4.36-5.78); RDW 15.6 % (11.8-14.1); RDW-SD 52.5 fL; WBC 10.79 10^3/uL (4.4-10.8)
--- NOTE | 2022-10-02 14:34 | ED.GENADUL_ITS ---
Discharge Plan Disposition Condition: Stable Discharge Details Chief Complaint: CVA/TIA Admit Date/Time: 10/02/22 19:56 Admit Provider: Wilbur Riley Attending Provider: Wilbur Riley Primary Care Provider: Kulwant Escobedo ED Provider: Kiana Parker Discharge Instructions Activity:: Activity as Tolerated Equipment/Supplies:: No Equipment Needed Diet:: As Tolerated Discharge Orders Discharge Orders: Discharge Order (Routine); Ordered 10/03/22 Ordered By: Yudith Agudelo Discharge Data Discharge Date/Time-TO BE ENTERED AT DEPARTURE: 10/02/22 20:57 Medical Decision Making 76-year-old male with a past medical history of type 2 diabetes, hypertension hyperlipidemia with acute CVA presents to the ER with chief complaint of right- sided facial droop which began 15 minutes prior to arrival after eating lunch per his report. 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 I did discuss this with family who reports that this was known. He did take Plavix 75 mg this morning and a atorvastatin, he did not take any aspirin which she normally takes at night he did take it last p.m. Upon further discussion with patient and family, does report some intermittant waxing and waning symptoms and right sided deficits since this all began. However, today the right sided facial droop is new again. Aspirin ordered. 1511:Spoke with [facility] transfer center, will call back. [facility]. 1526: Spoke with Dr. New with the stroke team at [facility] she will attempt to review the images of the CT and call me back. 1550: Spoke with Dr. New who reports that there is no other interventions to offer, he would not be a candiate for interventions at this time, she recommends follow up with PCP, and continuing previously prescribed medications, and making sure that he has close follow [facility]. 1555: Spoke with family, patient has speech pathology appt tomorrow via telehealth and Neu[facility] app[facility] with [facility]. 1556: [facility], to consult with Neurology, they are to call back. 1621: Spoke with Dr. Steiner with [facility], he recommends MRI w/o, which c ould be done tomorrow, or follow up as previously scheduled. It is high risk to add anticoagulation at this time per Dr. Steiner. Options discussed with patient and family and at this time they would like to be admitted for MRI imaging prior to their [facility] , unfortunately, MRI is not available at this facility at this time. I will offer admission to family and patient. 1643: Hospitalist paged. 1704: Spoke with Dr. Cifuentes who recommends transfer to [place] and discussion with Hospitalist there. Care to be handed off to oncoming provider HAM Malhotra for disposition. Discussed patient case in details with her she verbalizes understanding. At the time of sign out, patient hemodynamically stable. Medical Records Medical records reviewed: Yes I reviewed the patient's medical records. Medical records narrative: Seen on 09-12-22 transferred to [facility] for Acute CVA Imaging Data Radiologic Study: Imaging: CT Scan Radiologist's impression: IMPRESSION: 1. The left common carotid artery is occluded 1.5 cm distal to its origin.? The ipsilateral left internal carotid artery is reconstituted in the inferior aspect of the left cavernous sinus.? 2.? Patent vertebral arteries. 3.? Patent intracranial arteries. 4. Nonhemorrhagic area of ischemic change in the left frontal white matter again noted as well as developing more posteriorly in the left periventricular white matter.? Follow-up MRI recommended. Lab Data Lab results reviewed: Yes I reviewed the patient's lab results. Labs: Laboratory Tests Range/Units 10/02/22 10/02/22 10/02/22 14:07 14:07 14:07 WBC (4.4-10.8) 10^3/uL 10.79 RBC (4.36-5.78) 10^6/uL 5.82 H Hgb (13.5-17.5) g/dL 16.8 Hct (40.0-50.0) % 53.1 H MCV (80-95) fL 91 MCH (27.0-33.0) pg 28.9 MCHC (32.0-36.0) % 31.6 L RDW (11.8-14.1) % 15.6 H Plt Count (130-400) 10^3/uL 227 MPV (8.0-11.0) fL 11.6 H Immature Gran % 0.3 Neutrophils % 64.5 Lymphocytes % 27.1 Monocytes % 5.6 Eosinophils % 2.0 Basophils % 0.5 Nucleated RBC % (0.0-0.3) % 0.0 Absolute Neutrophils (1.2-6.7) 10^3/uL 6.97 H Absolute Lymphocytes (1.2-3.4) 10^3/uL 2.92 Absolute Monocytes (0.1-0.8) 10^3/uL 0.60 Absolute Eosinophils (0.0-0.7) 10^3/uL 0.22 Absolute Basophils (0.0-0.2) 10^3/uL 0.05 PT (9.3-11.0) sec 10.4 INR (0.9-1.1) 1.0 Sodium (136-145) mmol/L 143 Potassium (3.5-5.1) mmol/L 4.1 Chloride (98-107) mmol/L 105 Carbon Dioxide (21.0-32.0) mmol/L 31.2 Anion Gap (3-11) mmol/L 6.8 BUN (7-18) mg/dL 16 Creatinine (0.70-1.30) mg/dL 1.2 Est GFR (CKD-EPI 2020) (mL/min/1.73m2) 63.46 Glucose (74-106) mg/dL 85 Calcium (8.5-10.1) mg/dL 9.5 Magnesium (1.8-2.4) mg/dL 1.5 L Total Bilirubin (0.2-1.0) mg/dL 0.8 AST (15-37) U/L 15 ALT (16-63) U/L 16 Alkaline Phosphatase (46-116) U/L 88 Troponin I (<or=60) ng/L < 50 Total Protein (6.4-8.2) g/dL 7.1 Albumin (3.4-5.0) g/dL 4.2 HPI General Date/Time Provider Initiated Documentation: 10/02/22 13:59 . Related Data Home Medications Medication Instructions Recorded Confirmed aspirin 81 mg tablet,delayed 81 mg PO DAILY 01/23/13 10/02/22 release (Aspir-) insulin NPH isoph U-100 human 100 18 unit SQ HS 01/23/13 12/29/16 unit/mL subcutaneous suspension (Novolin N NPH U-100 Insulin isophane) metformin 500 mg tablet,extended 500 mg PO BID 01/23/13 10/02/22 release 24 hr metoprolol tartrate 25 mg tablet 50 mg PO BID 01/23/13 08/20/22 famotidine 20 mg tablet (Pepcid) 20 mg PO BID 01/28/14 10/02/22 nitroglycerin 0.4 mg sublingual 0.4 mg PO PRN PRN 01/28/14 10/02/22 tablet (Nitrostat) simvastatin 40 mg tablet 20 mg PO DAILY 01/28/14 08/20/22 hydrochlorothiazide 12.5 mg tablet 12.5 mg PO DAILY 06/19/16 12/29/16 testosterone 4 mg/24 hr 1 ea transdermal DAILY 06/19/16 08/20/22 transdermal 24 hour patch (Androderm) Study Drug X 3 Kinds For Gout PO DAILY 12/29/16 benzonatate 100 mg capsule 200 mg PO TID PRN 12/29/16 12/29/16 insulin NPH isoph U-100 human 100 16 unit SQ DAILY 12/29/16 12/29/16 unit/mL subcutaneous suspension (Novolin N NPH U-100 Insulin isophane) azithromycin 250 mg tablet 250 mg PO DAILY ##3 12/30/16 azithromycin 500 mg tablet 500 mg PO DAILY 5 days 10/02/17 (Zithromax TRI-ELI) benzonatate 100 mg capsule 100 mg PO TID PRN Cough #12 caps 10/02/17 losartan 100 mg tablet 50 mg PO QAM 08/20/22 08/20/22 acetaminophen 325 mg tablet 325 mg PO 3XD PRN Pain 09/12/22 10/02/22 allopurinol 300 mg tablet 300 mg PO 1XD 09/12/22 10/02/22 cetirizine 10 mg tablet 10 mg PO 1XD 09/12/22 10/02/22 cholecalciferol (vitamin D3) 50 50 mcg PO 1XD 09/12/22 10/02/22 mcg (2,000 unit) tablet cyanocobalamin (vitamin B-12) 1,000 mcg PO 1XD 09/12/22 09/12/22 1,000 mcg capsule diclofenac sodium 1 % topical gel 4 g topical 4XD PRN Pain 09/12/22 09/12/22 empagliflozin 25 mg tablet 25 mg PO 1XD 09/12/22 10/02/22 fluticasone propionate 50 50 mcg intranasal 1XD 09/12/22 09/12/22 mcg/actuation nasal spray,suspension insulin glargine-yfgn 100 unit/mL 100 unit subcut 1XD 09/12/22 09/12/22 (3 mL) subcutaneous pen ipratropium bromide 42 mcg (0.06 42 mcg intranasal 3XD 09/12/22 10/02/22 %) nasal spray semaglutide 1 mg/dose (2 mg/1.5 1 mg subcut QWEEK 09/12/22 10/02/22 mL) subcutaneous pen injector atorvastatin 80 mg tablet 80 mg PO DAILY 10/02/22 10/02/22 clopidogrel 75 mg tablet 75 mg PO DAILY #30 tabs 10/03/22 sodium chloride 1 gram tablet 1,000 mg PO QD-QID PRN 10/03/22 10/03/22 Previous Rx's Medication Instructions Recorded azithromycin 250 mg tablet 250 mg PO DAILY ##3 12/30/16 azithromycin 500 mg tablet 500 mg PO DAILY 5 days 10/02/17 (Zithromax TRI-ELI) benzonatate 100 mg capsule 100 mg PO TID PRN Cough #12 caps 10/02/17 clopidogrel 75 mg tablet 75 mg PO DAILY #30 tabs 10/03/22 Allergies Allergy/AdvReac Type Severity Reaction Status Date / Time amoxicillin [Amoxicillin] Allergy Mild Itching Unverified 10/02/22 14:05 General Stated Complaint: CVA/TIA MAGY: 2 PFSH All Active Problems (Updated 10/02/22 @ 23:37 by Wilbur Riley) Hypomagnesemia (Acute) Chest pain (Acute 01/23/13) Unstable angina (Acute 01/23/13) Diabetes mellitus type 2, controlled (Chronic) Hypertension (Chronic) Hyperlipidemia (Chronic) Acute CVA (cerebrovascular accident) (Acute) Medical History (Updated 10/02/22 @ 23:37 by Wilbur Riley) CAD (coronary artery disease), [place] coronary artery Social History Smoking/Tobacco Use Status: Former Tobacco Use Smoking risk assessment performed?: Yes Drug use: Never Substance use type: does not use Housing: house Do you feel safe in your relationship?: Yes Course Vital Signs Vital signs: Vital Signs Pulse 100 H 10/02/22 14:01 Respiratory Rate 18 10/02/22 14:01 Blood Pressure 169/76 H 10/02/22 14:01 Pulse Oximetry 97 10/02/22 14:01 Temperature Source Skin 10/02/22 14:01 Pulse 100 H 10/02/22 14:01 Respiratory Rate 18 10/02/22 14:01 Blood Pressure 169/76 H 10/02/22 14:01 Blood Pressure Position Supine 10/02/22 14:01 Pulse Oximetry 97 10/02/22 14:01 Oxygen Delivery Method Room Air 10/02/22 14:01 Oxygen Flow Rate 0 10/02/22 14:01 Pain Level 0 10/02/22 14:01 Lab/Test Results Lab/Test Results: Laboratory Tests Range/Units 10/02/22 14:07 WBC (4.4-10.8) 10^3/uL 10.79 RBC (4.36-5.78) 10^6/uL 5.82 H Hgb (13.5-17.5) g/dL 16.8 Hct (40.0-50.0) % 53.1 H MCV (80-95) fL 91 MCH (27.0-33.0) pg 28.9 MCHC (32.0-36.0) % 31.6 L RDW (11.8-14.1) % 15.6 H Plt Count (130-400) 10^3/uL 227 MPV (8.0-11.0) fL 11.6 H Immature Gran % 0.3 Neutrophils % 64.5 Lymphocytes % 27.1 Monocytes % 5.6 Eosinophils % 2.0 Basophils % 0.5 Nucleated RBC % (0.0-0.3) % 0.0 Absolute Neutrophils (1.2-6.7) 10^3/uL 6.97 H Absolute Lymphocytes (1.2-3.4) 10^3/uL 2.92 Absolute Monocytes (0.1-0.8) 10^3/uL 0.60 Absolute Eosinophils (0.0-0.7) 10^3/uL 0.22 Absolute Basophils (0.0-0.2) 10^3/uL 0.05 Sign Out Sign Out Data: Sign Out Comment: [facility]. I did speak with the hospitalist here who [facility]. Last updated by Victoria Bradford NP at 10/02/22 17:06
[2022-10-02 14:38] LABS: Prothrombin Time 10.4 sec (9.3-11.0)
[2022-10-02 14:44] LABS: ALT 16 U/L (16-63); AST 15 U/L (15-37); Albumin 4.2 g/dL (3.4-5.0); Alkaline Phosphatase 88 U/L (46-116); Anion Gap 6.8 mmol/L (3-11); BUN 16 mg/dL (7-18); Bilirubin, Total 0.8 mg/dL (0.2-1.0); CO2 31.2 mmol/L (21.0-32.0); CREATININE 1.2 mg/dL (0.70-1.30); Calcium 9.5 mg/dL (8.5-10.1); Chloride 105 mmol/L (98-107); Estimated GFR 63.46 (mL/min/1.73m2); Glucose 85 mg/dL (74-106); Magnesium 1.5 mg/dL (1.8-2.4); Potassium 4.1 mmol/L (3.5-5.1); Sodium 143 mmol/L (136-145); Total Protein 7.1 g/dL (6.4-8.2); Troponin I < 50 ng/L (<or=60)
[2022-10-02] MEDS: Aspirin 81 MG CHEW CH (15:24)
[2022-10-02 15:28] LABS: Lab Add On Test DONE
[2022-10-02 15:41] LABS: PTT Activated 25.7 sec (21.5-31.9)
[2022-10-02 16:47] LABS: Bilirubin Negative (Negative); Blood Negative (Negative); Clarity Clear (Clear); Glucose 500 mg/dL (Negative); Ketones Negative (Negative); Leukocyte Esterase Negative (Negative); Nitrite Negative (Negative); pH 5.5 (5-8)
[2022-10-02 20:38] LABS: Troponin I < 50 ng/L (<or=60)
--- NOTE | 2022-10-02 22:21 | ED.PROG_ITS ---
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 and on appropriate medical stroke management, and the hospitalist does not feel comfortable admitting the patient secondary to inability to operate on patient's total occlusion of left carotid artery and if patient continued to wish to be full CODE STATUS that he was not a candidate for admission here After long discussion with patient and patient's , patient would like to change his CODE STATUS to DO NOT RESUSCITATE DO NOT INTUBATE, I did discuss with patient regarding this decision and my concerns regarding his wish to be full code as they specifically state that they would not want him to be in a vegetative state and would not want us to resuscitate if this were to recur, the likelihood that patient would thrive post resuscitation is very limited Both and patient understand that should he have another major stroke and b ecome unresponsive, that he would not be resuscitated every time Both and patient are competent to make this decision Dr. Rahman admit patient for MRI It sounds like patient has follow-up with the [place] neurologist in 3 days [facility] was also consulted by Lupe Bradford, nurse practitioner who I received signout from and this total occlusion to left carotid is not a new finding Sign Out Sign Out Data: Sign Out Comment: Pending consultation with [facility] hospitalist for possible transfer. I did speak with the hospitalist here who recommends transfer to the [place]. Last updated by Victoria Bradford NP at 10/02/22 17:06 Discharge Plan Discharge Details Chief Complaint: CVA/TIA Admit Date/Time: 10/02/22 19:56 Admit Provider: Wilbur Riley Attending Provider: Wilbur Riley Primary Care Provider: Kulwant Escobedo ED Provider: Kiana Parker
--- NOTE | 2022-10-02 23:13 | HPE_ITS ---
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 Case was discussed with [facility] neurology who recommended follow-up with [place] neurology as scheduled in 3 days and MRI of the brain. Patient will be admitted for acute neurological symptoms with MRI planned in the morning. Patient will continue Plavix with aspirin having been reloaded this hospitalization. He is a DNR/DNI. (2) Hypertension: Status: Chronic Assessment and plan: Patient is hypertensive with permissive hypertension plan during his acute hospital stay. Modify chronic antihypertensives avoid systolic blood pressure drop below 140 but attempt to keep systolic below 180. (3) Hypomagnesemia: Start date: 10/02/22 Status: Acute Assessment and plan: Replete with IV magnesium with patient on chronic oral magnesium and chronic diuretics. Hold diuretics for now. Follow-up and continued repletion orally long-term. (4) Diabetes mellitus type 2, controlled: Status: Chronic Assessment and plan: Glucometer measurements was covered while in the hospital. (5) CAD (coronary artery disease), [place] coronary artery: Assessment and plan: Continue risk factor modification and medical therapy. (6) Hyperlipidemia: Status: Chronic Assessment and plan: Continue high-dose statin therapy especially with his recent CVA. History of Present Illness History of Present Illness Chief Complaint: Right facial droop with recent CVA involving speech Narrative: This is a 76-year-old male patient who had a left CVA with complete left carotid occlusion over the last 4 weeks initially seen in the being seen at [facility] with no interventions performed. He does have follow-up with [place] neurology. At home on the day of admission the patient's noted right facial drooping and some speech difficulty which was his initial presentation with stroke previously. Evaluation in the ED did reveal no changes in findings and also [facility] and [place] did not have any interventions available even though his onset of neurological symptoms were within the window tPA. He has had his previous CVA and is not a candidate and [facility] for [facility]. They advised observation with patient to have maximized treatment with Plavix and aspirin as well as to have MRI of the brain a with [facility]. If he decompensates or worsens repeat imaging to be done immediately. He has a DNR/DNI at this time and then a full code previously. Review of Systems Narrative: 13 point review otherwise unrevealing or stable. Patient is a very poor historian and his was not at the bedside. PFSH All Active Problems (Updated 10/02/22 @ 23:37 by Wilbur Riley) Hypomagnesemia (Acute) Chest pain (Acute 01/23/13) Unstable angina (Acute 01/23/13) Diabetes mellitus type 2, controlled (Chronic) Hypertension (Chronic) Hyperlipidemia (Chronic) Acute CVA (cerebrovascular accident) (Acute) Medical History (Updated 10/02/22 @ 23:37 by Wilbur Riley) CAD (coronary artery disease), [place] coronary artery Social History Smoking/Tobacco Use Status: Former Tobacco Use Smoking risk assessment performed?: Yes Drug use: Never Substance use type: does not use Housing: house Do you feel safe in your relationship?: Yes Meds Allergies and Home Medications Allergies Allergy/AdvReac Type Severity Reaction Status Date / Time amoxicillin [Amoxicillin] Allergy Mild Itching Unverified 10/02/22 14:05 Home Medications Medication Instructions Recorded Confirmed Type aspirin 81 mg tablet,delayed 81 mg PO DAILY 01/23/13 10/02/22 History release (Aspir-) insulin NPH isoph U-100 human 100 18 unit SQ HS 01/23/13 12/29/16 History unit/mL subcutaneous suspension (Novolin N NPH U-100 Insulin isophane) metformin 500 mg tablet,extended 500 mg PO BID 01/23/13 10/02/22 History release 24 hr metoprolol tartrate 25 mg tablet 50 mg PO BID 01/23/13 08/20/22 History famotidine 20 mg tablet (Pepcid) 20 mg PO BID 01/28/14 10/02/22 History nitroglycerin 0.4 mg sublingual 0.4 mg PO PRN PRN 01/28/14 10/02/22 History tablet (Nitrostat) simvastatin 40 mg tablet 20 mg PO DAILY 01/28/14 08/20/22 History hydrochlorothiazide 12.5 mg tablet 12.5 mg PO DAILY 06/19/16 12/29/16 History testosterone 4 mg/24 hr 1 ea transdermal DAILY 06/19/16 08/20/22 History transdermal 24 hour patch (Androderm) Study Drug X 3 Kinds For Gout PO DAILY 12/29/16 History benzonatate 100 mg capsule 200 mg PO TID PRN 12/29/16 12/29/16 History insulin NPH isoph U-100 human 100 16 unit SQ DAILY 12/29/16 12/29/16 History unit/mL subcutaneous suspension (Novolin N NPH U-100 Insulin isophane) azithromycin 250 mg tablet 250 mg PO DAILY ##3 12/30/16 Rx azithromycin 500 mg tablet 500 mg PO DAILY 5 days 10/02/17 Rx (Zithromax TRI-ELI) benzonatate 100 mg capsule 100 mg PO TID PRN Cough #12 caps 10/02/17 Rx losartan 100 mg tablet 50 mg PO QAM 08/20/22 08/20/22 History acetaminophen 325 mg tablet 325 mg PO 3XD PRN Pain 09/12/22 10/02/22 History allopurinol 300 mg tablet 300 mg PO 1XD 09/12/22 10/02/22 History cetirizine 10 mg tablet 10 mg PO 1XD 09/12/22 10/02/22 History cholecalciferol (vitamin D3) 50 50 mcg PO 1XD 09/12/22 10/02/22 History mcg (2,000 unit) tablet cyanocobalamin (vitamin B-12) 1,000 mcg PO 1XD 09/12/22 09/12/22 History 1,000 mcg capsule diclofenac sodium 1 % topical gel 4 g topical 4XD PRN Pain 09/12/22 09/12/22 History empagliflozin 25 mg tablet 25 mg PO 1XD 09/12/22 10/02/22 History fluticasone propionate 50 50 mcg intranasal 1XD 09/12/22 09/12/22 History mcg/actuation nasal spray,suspension insulin glargine-yfgn 100 unit/mL 100 unit subcut 1XD 09/12/22 09/12/22 History (3 mL) subcutaneous pen ipratropium bromide 42 mcg (0.06 42 mcg intranasal 3XD 09/12/22 10/02/22 History %) nasal spray semaglutide 1 mg/dose (2 mg/1.5 1 mg subcut QWEEK 09/12/22 10/02/22 History mL) subcutaneous pen injector atorvastatin 80 mg tablet 80 mg PO DAILY 10/02/22 10/02/22 History Exam Narrative Exam Narrative: General: Patient appears appropriate for age, he is slightly confused with history being vague but is attempting to converse. He has a flattened affect with poor eye contact. He is alert and oriented to possibly person and place. He appears in no acute distress. HEENT: Normocephalic, eyes with pupils equal react light symmetrically, extraocular movement intact and sclera anicteric. Tongue protrudes in midline. There is a slight droop to the corner of the right mouth is not noticeable unless patient attempts to smile. He does have hesitant speech. For mucosa m oist with fair dentition. Neck: Supple without JVD and no palpable carotid thrills. Back: Stooped posture without CVA tenderness. Lungs: Bronchovesicular breath sounds diffusely with poor aeration and poor effort, clear without auscultation rales or rhonchi. No expiratory wheeze. Heart: Regular rate and rhythm with no appreciable murmur or gallop. Abdomen: Soft and slightly obese, nontender to palpation, no palpable hepatosplenomegaly. Bowel sounds positive all quadrants. Genitalia/rectal: Exam deferred. Extremities: Without clubbing, cyanosis or grossly pitting edema. Fair capillary refill. Skin: Normal color, warm and dry. Neuro: Cranial nerves II through XII appear to be grossly intact decreased motor strength right compared to left with sensitized paper tester 3-4 out of 5 compared to 5 out of 5 on the left and questionable Babinski on the right. DTRs are decreased on right compared to left. Cerebellar testing not performed. No tremor. Psych: Flattened affect with patient being slightly confused and not having white to help with conversation. He appears depressed. No abnormal thought processes. Remote and recent memory difficult to assess with patient being a poor historian. Results Imaging Imaging Studies: Exam(s) CT BRAIN ? NECK CTA EXAM: ? CT BRAIN ? NECK CTA CLINICAL HISTORY: ? Right sided facial droop hx CVA. ? TECHNIQUE:? Imaging Protocol:? Axial CT angiography was performed with multi- slice acquisition and multi-planar and/or 3D reconstructions. CONTRAST MATERIAL:? Intravenous: Omnipaque 350 Contrast volume:structured data in ml COMPARISON:? CT ABD ? PELVIS WITH CONTRAST from 02/28/[address] HEAD - STROKE PROTOCOL from 08/20/2022 FINDINGS: CTA Neck W: Aortic arch anatomy: There is focal outpouching of the anterior aspect of the aortic arch consistent with focal aneurysm.? Although there is no high-grade stenosis at the origin the great vessels off the aortic arch, the left common carotid artery is occluded 1.5 cm distal to its origin.? There is no contrast flow seen within this vessel in the neck and skull base until it appears to be reconstituted within the left cavernous sinus.? The opposite-right common carotid artery is nicely patent without significant stenosis.? Is no significant stenosis at the carotid bulb but there is calcified circumferential plaque in the proximal right internal carotid artery in the neck with approximately 30 percent stenosis.? Above this level the right ICA is patent in the upper neck and skull base. Posterior circulation: Both vertebral arteries originate in conventional fashion off of the subclavian arteries and there is no obvious stenosis at the origin of the vertebral arteries. Both vertebral arteries exhibit normal luminal diameters within the foramen transversarium.? Both vertebral arteries contribute to the formation of the basilar artery at the skull base.? The right is the dominant contributor with thinner left vertebral artery contributing to the basilar artery formation at the skull base. CTA Brain W: Anterior circulation: The occluded left internal carotid artery is reconstituted in the proximal aspect of the cavernous sinus and patent above this level.? Left ICA also patent Right internal carotid artery in the skull base is patent as well as within the cavernous sinus.? Supraclinoid aspect is patent.? Both A1 segments are patent as are the anterior cerebral arteries and there is no evidence of aneurysm at the level of the anterior communicating artery. Both middle cerebral arteries are patent with no evidence of significant stenosis nor intraluminal thrombus.? There also no aneurysms of these vessels. Posterior circulation: The basilar artery ascends in the midline.? Distally it gives off patent bilateral superior cerebellar arteries. Above this level the basilar artery terminates as patent bilateral posterior cerebral arteries. There is no evidence of aneurysm at the tip of the basilar artery nor elsewhere in the [id number]. CT BRAIN: There is no evidence of intracranial hemorrhage, mass effect, or shift of midline structures.? There are no extra-axial fluid collections.? Ventricles are not enlarged or shifted.? There are no ring enhancing lesions in the brain and no abnormal meningeal enhancement. Previously described area of abnormal hypodensity in the left frontal lobe white matter is again noted.? There is also now subtle area of hypodensity in the left-sided white matter more posteriorly towards the parietal lobe.? No abnormal white matter hypodensity on the opposite-right side. IMPRESSION: 1. The left common carotid artery is occluded 1.5 cm distal to its origin.? The ipsilateral left internal carotid artery is reconstituted in the inferior aspect of the left cavernous sinus.? 2.? Patent vertebral arteries. 3.? Patent intracranial arteries. 4. Nonhemorrhagic area of ischemic change in the left frontal white matter again noted as well as developing more posteriorly in the left periventricular white matter.? Follow-up MRI recommended. Labs 10/03/22 05:32 10/03/22 05:32 Labs: Laboratory Results - last 24 hr 10/02/22 10/02/22 10/02/22 14:07 14:07 14:07 WBC 10.79 RBC 5.82 H Hgb 16.8 Hct 53.1 H MCV 91 MCH 28.9 MCHC 31.6 L RDW 15.6 H Plt Count 227 MPV 11.6 H Immature Gran % 0.3 Neutrophils % 64.5 Lymphocytes % 27.1 Monocytes % 5.6 Eosinophils % 2.0 Basophils % 0.5 Nucleated RBC % 0.0 Absolute Neutrophils 6.97 H Absolute Lymphocytes 2.92 Absolute Monocytes 0.60 Absolute Eosinophils 0.22 Absolute Basophils 0.05 PT 10.4 INR 1.0 APTT Sodium 143 Potassium 4.1 Chloride 105 Carbon Dioxide 31.2 Anion Gap 6.8 BUN 16 Creatinine 1.2 Est GFR (CKD-EPI 2020) 63.46 Glucose 85 Calcium 9.5 Magnesium 1.5 L Total Bilirubin 0.8 AST 15 ALT 16 Alkaline Phosphatase 88 Troponin I < 50 Total Protein 7.1 Albumin 4.2 Urine Color Urine Clarity Urine pH Ur Specific [place] Urine Protein Urine Ketones Urine Blood Urine Nitrite Urine Bilirubin Urine Urobilinogen Ur Leukocyte Esterase Urine Glucose Add-On Test Request 10/02/22 10/02/22 10/02/22 14:07 14:07 16:28 WBC RBC Hgb Hct MCV MCH MCHC RDW Plt Count MPV Immature Gran % Neutrophils % Lymphocytes % Monocytes % Eosinophils % Basophils % Nucleated RBC % Absolute Neutrophils Absolute Lymphocytes Absolute Monocytes Absolute Eosinophils Absolute Basophils PT INR APTT 25.7 Sodium Potassium Chloride Carbon Dioxide Anion Gap BUN Creatinine Est GFR (CKD-EPI 2020) Glucose Calcium Magnesium Total Bilirubin AST ALT Alkaline Phosphatase Troponin I Total Protein Albumin Urine Color Yellow Urine Clarity Clear Urine pH 5.5 Ur Specific [place] 1.010 Urine Protein Negative Urine Ketones Negative Urine Blood Negative Urine Nitrite Negative Urine Bilirubin Negative Urine Urobilinogen 1.0 H Ur Leukocyte Esterase Negative Urine Glucose 500 H Add-On Test Request DONE 10/02/22 20:14 WBC RBC Hgb Hct MCV MCH MCHC RDW Plt Count MPV Immature Gran % Neutrophils % Lymphocytes % Monocytes % Eosinophils % Basophils % Nucleated RBC % Absolute Neutrophils Absolute Lymphocytes Absolute Monocytes Absolute Eosinophils Absolute Basophils PT INR APTT Sodium Potassium Chloride Carbon Dioxide Anion Gap BUN Creatinine Est GFR (CKD-EPI 2020) Glucose Calcium Magnesium Total Bilirubin AST ALT Alkaline Phosphatase Troponin I < 50 Total Protein Albumin Urine Color Urine Clarity Urine pH Ur Specific [place] Urine Protein Urine Ketones Urine Blood Urine Nitrite Urine Bilirubin Urine Urobilinogen Ur Leukocyte Esterase Urine Glucose Add-On Test Request Last Vital Signs Temp 36.3 C L 10/02/22 21:18 Pulse 99 H 10/02/22 21:18 Resp 16 10/02/22 21:18 BP 157/81 H 10/02/22 21:18 Pulse Ox 94 10/02/22 21:18 Time Spent Time spent with Patient: >75 minutes Time was spent: preparing to see the patient(eg.review tests), obtaining and/or reviewing separately otained hiistory, ordering medications,tests, procedures, referring, communicating with other health residential care officer, indepentently interpreting results and care coordination
[2022-10-03] VITALS (7 sets, daily range): BP systolic 129–153; BP diastolic 70–88; PULSE 81–99; RESP 16–18; TEMP 35.8–36.1; O2SAT 93–96
[2022-10-03 00:28] LABS: TSH (W/Ref FT4) 4.54 uIU/mL (0.36-3.74)
[2022-10-03 00:45] LABS: FREE T4 0.83 ng/dL (0.76-1.46)
[2022-10-03] MEDS: MAGNESIUM SULFATE 4 GM/100 ML BAG IVPB (00:47)
--- NOTE | 2022-10-03 00:49 | NUR.NOTE ---
Nursing Note: in regards to magnesium replacement, rate is infusing at 25ml/hr instead of the 100ml/hr that was ordered. the hospitalist is aware of this change.
[2022-10-03] MEDS: Heparin 5,000 UNITS/ML VIAL 5000 UNITS SC ×2 (05:41→14:38)
[2022-10-03] MEDS: Metoprolol 25 MG TAB PO (05:41)
[2022-10-03 06:43] LABS: HCT 49.8 % (40.0-50.0); HGB 16.3 g/dL (13.5-17.5); MCH 29.5 pg (27.0-33.0); MCHC 32.7 % (32.0-36.0); MCV 90 fL (80-95); MPV 11.9 fL (8.0-11.0); Platelet Count 183 10^3/uL (130-400); RBC 5.53 10^6/uL (4.36-5.78); RDW 15.5 % (11.8-14.1); RDW-SD 51.2 fL; WBC 11.19 10^3/uL (4.4-10.8)
[2022-10-03 07:07] LABS: ALT 11 U/L (16-63); AST 12 U/L (15-37); Albumin 3.7 g/dL (3.4-5.0); Alkaline Phosphatase 80 U/L (46-116); Anion Gap 8.7 mmol/L (3-11); BUN 15 mg/dL (7-18); Bilirubin, Total 0.6 mg/dL (0.2-1.0); CO2 28.3 mmol/L (21.0-32.0); Calcium 9.4 mg/dL (8.5-10.1); Chloride 104 mmol/L (98-107); Estimated GFR 78.98 (mL/min/1.73m2); Glucose 89 mg/dL (74-106); Magnesium 2.9 mg/dL (1.8-2.4); Potassium 3.3 mmol/L (3.5-5.1); Sodium 141 mmol/L (136-145); Total Protein 6.4 g/dL (6.4-8.2)
[2022-10-03] MEDS: Cholecalciferol (Vitamin D3) 1,000 UNIT TAB 2000 UNITS PO (08:45)
[2022-10-03] MEDS: Pantoprazole 40 MG TABCR PO (08:45)
[2022-10-03] MEDS: Cyanocobalamin 500 MCG TAB 1000 MCG PO (08:45)
[2022-10-03] MEDS: Allopurinol 300 MG TAB PO (08:45)
[2022-10-03] MEDS: Cetirizine 10 MG TAB PO (08:45)
[2022-10-03] MEDS: Aspirin E.C. 81 MG TABEC PO (08:45)
[2022-10-03] MEDS: Fluticasone NASAL SPRAY 16 GM BTL NS (08:46)
[2022-10-03] MEDS: Clopidogrel 75 MG TAB PO (08:46)
--- NOTE | 2022-10-03 09:11 | NUR.NOTE ---
Nursing Note: CAROLYN chase documented on CVA assessment for this patient. No known documentation present at this time. ED RN clearly the only presnet documentation upon opening this assessment. CAROLYN chase cleared this with me Santa WILSON.
--- NOTE | 2022-10-03 09:59 | PDOC.CMIN ---
Date of service: 10/03/22 Time of Service: 09:59 Care Management Initial Assmt Initial Assessment REASON FOR HOSPITALIZATION:: acute CVA PREVIOUS FUNCTIONAL STATUS/SOCIAL/FAMILY SUPPORTS:: Shukri lives in [place], [place] with his Chelsea. They have one daughter who lives in [place] and one adult grandson. Ivan is retired but was in the [employer] for many years. He does not receive any community services and occasionally uses a can when ambulating outside. CURRENT FUNCTIONAL STATUS:: Ivan was sitting up visiting with his Chelsea when CM met with him. He was pleasant and cooperative with answering questions. Ivan indicated that he is feeling well and hopes to be able to go home today. He receives [facility] medical care at the [facility] and requested that his MRI be sent there. ADVANCE DIRECTIVES:: none on file Has patient been provided with info about the portal/API?: Yes Did the patient sign up for the portal?: No CODE STATUS:: DNR/DNI INSURANCE COVERAGE / FINANCIAL ISSUES:: Medicare for Life CURRENT HOME/COMMUNITY SERVICES/EQUIPMENT:: cane PRIMARY CARE PHYSICIAN:: Kulwant Escobedo at [facility] POTENTIAL DISCHARGE NEEDS:: follow up with Neurology at [facility], PCP and plan of care as prescribed PATIENT/FAMILY EDUCATION NEEDS:: review of discharge instructions, limitations, activity, follow up plan, discuss [employer]' TRANSPORTATION:: via private vehicle with family PLAN:: Anticipate Ivan will be discharged home with no new. He will follow up with his community providers at the [facility] and plan of care and transport with family. CM to follow and assess for discharge needs. PFSH All Active Problems (Updated 10/02/22 @ 23:37 by Wilbur Riley) Hypomagnesemia (Acute) Chest pain (Acute 01/23/13) Unstable angina (Acute 01/23/13) Diabetes mellitus type 2, controlled (Chronic) Hypertension (Chronic) Hyperlipidemia (Chronic) Acute CVA (cerebrovascular accident) (Acute) Medical History (Updated 10/02/22 @ 23:37 by Wilbur Riley) CAD (coronary artery disease), [place] coronary artery Social History Smoking/Tobacco Use Status: Former Tobacco Use Smoking risk assessment performed?: Yes Drug use: Never Substance use type: does not use Housing: house Do you feel safe in your relationship?: Yes
--- NOTE | 2022-10-03 10:45 | DI.MRI_ITS ---
Exam(s) MR BRAIN WO EXAM: MR BRAIN WO CLINICAL HISTORY: CVA with left carotid stenosis TECHNIQUE: Multiplanar multisequence MRI of the brain was performed. COMPARISON: CT CT HEAD - STROKE PROTOCOL from 08/20/[address] BRAIN NECK CTA from 10/02/2022 FINDINGS: VENTRICLES AND EXTRA AXIAL SPACES: There is mild cerebral atrophy. MIDLINE SHIFT: None. CEREBRAL PARENCHYMA: There are few scattered areas of hyperintense signal seen on the FLAIR and T2 we ighted images likely reflecting small vessel ischemic disease. There is a small focus of encephalomal acia in the left frontal parietal watershed region. There is an area of cortical hyperintensity on th e diffusion-weighted image use at the periphery of this encephalomalacia which may represent an acute area of ischemia. There is an area of hyperintensity on the diffusion-weighted images chest posterio rly to this in the deep white matter which may also represent an acute ischemic insult. HEMORRHAGE: None. BRAINSTEM/CEREBELLUM: Normal. CALVARIUM: Normal. VISUALIZED PARANASAL SINUSES/MASTOIDS:Clear. There are findings of a prior right mastoidectomy. Ther e is a mucous retention cyst or polyp in the right maxillary sinus. ASSINIBOINE AND [place] TRIBES OF [place]: There is again seen occlusion of the distal aspect of the left internal carotid art lalo with reconstitution in the level of the cavernous sinus. PITUITARY GLAND: Unremarkable. OTHER FINDINGS: None. IMPRESSION: 1. There are 2 areas which show hyperintensity in the diffusion-weighted images: 1 at the left fronta l parietal watershed region and 1 in the deep white matter on the left. These may represent areas of acute ischemia. 2. Age-related cerebral atrophy and small vessel ischemic disease. DATA REPOSITORY:
--- NOTE | 2022-10-03 13:25 | NUR.NOTE ---
Accessed chart to determine orders for EKG and to determine whether or not one needs to be cancelled. Nursing Note:
[2022-10-03] MEDS: Potassium Chloride 20 MEQ TABCR PO (14:38)
--- NOTE | 2022-10-03 14:57 | DSE_ITS ---
Date of service: 10/03/22 Time of Service: 14:58 DS: Diagnosis Discharge Diagnosis (1) Acute CVA (cerebrovascular accident): Status: Acute (2) Hypertension: Status: Chronic (3) Hypomagnesemia: Status: Acute (4) Diabetes mellitus type 2, controlled: Status: Chronic (5) CAD (coronary artery disease), [place] coronary artery: (6) Hyperlipidemia: Status: Chronic Discharge Plan Disposition Patient Disposition: Home Condition: Stable Discharge Details Reason For Visit: Acute CVA with Left Carotid Occlusion Admit Date/Time: 10/02/22 19:56 Admit Provider: Wilbur Riley Attending Provider: Wilbur Riley Primary Care Provider: Kulwant Escobedo Hospital Course Hospital Course: This is a 76-year-old patient who presented to the emergency department with acute right facial drooping with previous CVA in left MCA distribution with patient having total occlusion of left carotid which is known with recent CVA.? His case was discussed with [facility] neurology who recommended follow-up with [facility] as scheduled in 3 days and MRI of the brain.? Patient was admitted for acute neurological symptoms and MRI. Overnight he rested comfortably and his symptoms improved and he and his felt he was at baseline.? He had no further symptoms or complaints. And now that he is returned to his baseline the patient and the have requested discharge prior to the reading of the MRI and will plan on follow-up with his neurologist Dr. Jo on Saturday. He was advised to return sooner for new or worsening symptoms. Patient will continue Plavix with aspirin having been reloaded this hospitalization.? He is a DNR/DNI. Discharge discussed with Dr. Cifuentes [place] Meds and New Rx's Prescriptions: New clopidogrel 75 mg Tablet 75 mg PO DAILY Qty: 30 0RF Continued aspirin [Aspir-81] 81 MG tablet,delayed release (DR/EC) 81 mg PO DAILY insulin NPH isoph U-100 human [Novolin N NPH U-100 Insulin] 100 UNIT/ML suspension 18 unit SQ HS metformin 500 MG tablet extended release 24 hr 500 mg PO BID metoprolol tartrate 25 MG tablet 50 mg PO BID simvastatin 40 MG tablet 20 mg PO DAILY nitroglycerin [Nitrostat] 0.4 MG tablet, sublingual 0.4 mg PO PRN PRN famotidine [Pepcid] 20 MG tablet 20 mg PO BID Androderm 1 EACH patch 24 hour 1 ea Transdermal DAILY hydrochlorothiazide 12.5 MG tablet 12.5 mg PO DAILY losartan 100 MG tablet 50 mg PO QAM acetaminophen 325 mg Tablet 325 mg PO 3XD PRN (Reason: Pain) cetirizine 10 mg Tablet 10 mg PO 1XD allopurinol 300 mg Tablet 300 mg PO 1XD ipratropium bromide 42 mcg (0.06 %) [place],Non-Aerosol 42 mcg INTRANASAL 3XD Rx Instructions: 2 sprays each nostril fluticasone propionate 50 mcg/actuation [place],Suspension 50 mcg INTRANASAL 1XD Rx Instructions: 2 sprays into each nostril diclofenac sodium 1 % Gel 4 g TOPICAL 4XD MDD 8 PRN (Reason: Pain) cholecalciferol (vitamin D3) 50 mcg (2,000 unit) Tablet 50 mcg PO 1XD empagliflozin 25 mg Tablet 25 mg PO 1XD cyanocobalamin (vitamin B-12) 1,000 mcg Capsule 1,000 mcg PO 1XD semaglutide 1 mg/dose (2 mg/1.5 mL) Pen Injector 1 mg SUBCUT QWEEK insulin glargine-yfgn 100 unit/mL (3 mL) Insulin Pen 100 unit SUBCUT 1XD atorvastatin 80 mg Tablet 80 mg PO DAILY sodium chloride 1 gram Tablet 1,000 mg PO QD-QID PRN benzonatate 100 MG capsule 200 mg PO TID PRN Study Drug X 3 Kinds For Gout PO DAILY insulin NPH isoph U-100 human [Novolin N NPH U-100 Insulin] 100 UNIT/ML suspension 16 unit SQ DAILY azithromycin 250 MG tablet 250 mg PO DAILY Qty: 3 0RF benzonatate 100 MG capsule 100 mg PO TID PRN (Reason: Cough) Qty: 12 0RF azithromycin [Zithromax TRI-ELI] 500 MG tablet 500 mg PO DAILY 5 Days 0RF Discharge Instructions Instructions: Ischemic Stroke (DC) Stand Alone Forms: Nursing Discharge Form Referrals: RAMIN JO MD [ NON-[facility] STAFF PHYSICIAN] - (Keep scheduled appointment on Saturday return sooner for new or worsening symptoms) Activity:: Activity as Tolerated Equipment/Supplies:: No Equipment Needed Diet:: As Tolerated Discharge Orders Discharge Orders: Discharge Order (Routine); Ordered 10/03/22 Ordered By: Yudith Agudelo Discharge Data Discharge Date/Time-TO BE ENTERED AT DEPARTURE: 10/03/22 16:30 DS: Summary Time Spent with Patient providing and/or coordinating discharge services: Less than 30 minutes Status at Discharge Functional status at discharge: uses cane/walker Overall status at discharge: patient is progressing back to baseline Mental Status: other Speech and Movement: slowed movement Mood: other Affect: blunted Exam Const General: comfortable, no acute distress, frail appearing and ill appearing chronically Nutritional Appearance: average body habitus Orientation: alert, awake and oriented to person HENWV Head: normal to inspection, normocephalic and atraumatic Face and sinus: normal facial exam Mouth: oral mucosae normal Chest Chest: normal inspection of the chest Resp Effort & Inspection: normal respiratory effort Auscultation: clear to auscultation bilaterally Cardio Rate: regular rate Rhythm: regular rhythm GI Inspection: normal to inspection Palpation: soft Skin General skin exam: no rashes or lesions noted Neuro General: patient alert, patient awake and moves all extremities (right slightly decreased when compared to left) Psych Appearance: grossly normal Mental Status: other Speech and Movement: slowed movement Mood: other Affect: blunted DS: Data Vitals/I&O Vitals and I&O: Vital Signs Temperature 36.1 C L 10/03/22 11:05 Temperature Source Tympanic 10/03/22 11:05 Pulse 92 H 10/03/22 11:05 Pulse Rhythm Regular 10/03/22 07:30 Respiratory Rate 18 10/03/22 11:05 Respiratory Effort Normal, Non-Labored 10/03/22 07:30 Respiratory Depth Normal 10/03/22 07:30 Respiratory Pattern Normal 10/03/22 07:30 Blood Pressure 153/88 H 10/03/22 11:05 Blood Pressure Position Supine 10/02/22 14:01 Pulse Oximetry 96 10/03/22 11:05 Oxygen Delivery Method Room Air 10/03/22 11:05 Oxygen Flow Rate 0 10/03/22 11:05 Pain Level 0 10/03/22 11:05 Comment BP called over radio 10/03/22 11:05 Intake & Output 10/02/22 10/03/22 10/03/22 23:59 11:59 23:59 Weight 78.471 kg Other: Urine Color Pale Urine Appearance Clear Clear Urine Odor None Comment unmeasured occurance void in [place]li[place] Voiding Methods Toilet Data Completed and Pending Labs on day of discharge: Labs from last 24 hours 10/03/22 10/03/22 10/02/22 05:32 05:32 20:14 WBC 11.19 H RBC 5.53 Hgb 16.3 Hct 49.8 MCV 90 MCH 29.5 MCHC 32.7 RDW 15.5 H Plt Count 183 MPV 11.9 H APTT Sodium 141 Potassium 3.3 L Chloride 104 Carbon Dioxide 28.3 Anion Gap 8.7 BUN 15 Creatinine 1.0 Est GFR (CKD-EPI 2020) 78.98 Glucose 89 Calcium 9.4 Magnesium 2.9 H Total Bilirubin 0.6 AST 12 L ALT 11 L Alkaline Phosphatase 80 Troponin I Total Protein 6.4 Albumin 3.7 TSH 4.54 H Free T4 0.83 Urine Color Urine Clarity Urine pH Ur Specific [place] Urine Protein Urine Ketones Urine Blood Urine Nitrite Urine Bilirubin Urine Urobilinogen Ur Leukocyte Esterase Urine Glucose Add-On Test Request 10/02/22 10/02/22 10/02/22 20:14 16:28 14:07 WBC RBC Hgb Hct MCV MCH MCHC RDW Plt Count MPV APTT 25.7 Sodium Potassium Chloride Carbon Dioxide Anion Gap BUN Creatinine Est GFR (CKD-EPI 2020) Glucose Calcium Magnesium Total Bilirubin AST ALT Alkaline Phosphatase Troponin I < 50 Total Protein Albumin TSH Free T4 Urine Color Yellow Urine Clarity Clear Urine pH 5.5 Ur Specific [place] 1.010 Urine Protein Negative Urine Ketones Negative Urine Blood Negative Urine Nitrite Negative Urine Bilirubin Negative Urine Urobilinogen 1.0 H Ur Leukocyte Esterase Negative Urine Glucose 500 H Add-On Test Request 10/02/22 14:07 WBC RBC Hgb Hct MCV MCH MCHC RDW Plt Count MPV APTT Sodium Potassium Chloride Carbon Dioxide Anion Gap BUN Creatinine Est GFR (CKD-EPI 2020) Glucose Calcium Magnesium Total Bilirubin AST ALT Alkaline Phosphatase Troponin I Total Protein Albumin TSH Free T4 Urine Color Urine Clarity Urine pH Ur Specific [place] Urine Protein Urine Ketones Urine Blood Urine Nitrite Urine Bilirubin Urine Urobilinogen Ur Leukocyte Esterase Urine Glucose Add-On Test Request DONE PFS All Active Problems (Updated 10/02/22 @ 23:37 by Wilbur Riley) Hypomagnesemia (Acute) Chest pain (Acute 01/23/13) Unstable angina (Acute 01/23/13) Diabetes mellitus type 2, controlled (Chronic) Hypertension (Chronic) Hyperlipidemia (Chronic) Acute CVA (cerebrovascular accident) (Acute) Medical History (Updated 10/02/22 @ 23:37 by Wilbur Riley) CAD (coronary artery disease), [place] coronary artery Social History Smoking/Tobacco Use Status: Former Tobacco Use Smoking risk assessment performed?: Yes Drug use: Never Substance use type: does not use Housing: house Do you feel safe in your relationship?: Yes Time Spent with Patient Time Spent with Patient: <45 minutes Time was spent: preparing to see the patient(eg.review tests), ordering med ications,tests, procedures and counseling the patient
--- NOTE | 2022-10-03 18:23 | DI.VRAD_ITS ---
Addendum created by Osorio Marrero MD on 10/03/2022 6:29:58 PM EDT: THIS REPORT CONTAINS FINDINGS THAT MAY BE CRITICAL TO PATIENT CARE. The findings were verbally communicated via telephone conference with Ai Camarillo at 6:29 PM EDT on 10/03/2022. The findings were acknowledged and understood. Initial report created on 10/03/2022 6:22:42 PM EDT: PROCEDURE INFORMATION: Exam: MR Head Without Contrast Exam date and time: 10/03/2022 10:26 AM Age: 76 years old Clinical indication: Other: CVA with left carotid stenosis TECHNIQUE: Imaging protocol: Magnetic resonance imaging of the head without contrast. COMPARISON: CT BRAIN NECK CTA 10/02/2022 2:21 PM FINDINGS: Brain: Slight prominence of cerebral sulci reflects mild cerebral atrophy and a few small FLAIR and T2 hyperintensities seen scattered throughout the deep and periventricular white matter of both cerebral hemispheres may reflect microvascular ischemic changes of minimal degree. A suspected focus of encephalomalacia along the anterolateral left frontal lobe could relate to a previous ischemic insult. Focal cortical hyperintensity seen on the diffusion-weighted images at the periphery of this suspected encephalomalacic focus suggests a superimposed acute ischemic insult with a fusiform focus of diffusion restriction also suspected involving the deep white matter just posterior to this location in the anterior left frontal lobe (see image 42, series 5001). No other acute infarcts are suspected. Brainstem and cerebellum are unremarkable and there is no evidence of acute intracranial hemorrhage. Cerebral ventricles: Dilatation of the 3rd and lateral ventricles is commensurate with the degree of cerebral atrophy. Bones/joints: Unremarkable. Paranasal sinuses: Grossly clear throughout. Mastoid air cells: Left-sided mastoid air cells are grossly clear with right-sided mastoidectomy defect evident. Orbital cavities: Both globes appear intact and no orbital lesions are detected. Soft tissues: Unremarkable. IMPRESSION: Mild cerebral atrophy and minimal microvascular ischemic changes as above. A suspected focus of encephalomalacia along the anterolateral left frontal lobe could relate to a previous ischemic insult. Focal cortical hyperintensity seen on the diffusion-weighted images at the periphery of this suspected encephalomalacic focus suggests a superimposed acute ischemic insult with a fusiform focus of diffusion restriction also suspected involving the deep white matter just posterior to this location in the anterior left frontal lobe as detailed above. No other acute infarcts are suspected. Dictated and Authenticated by: Osorio Marrero MD. Ordering:ISIDRO Bowles MD
== END 2022-10-03 16:30 | disposition home or self-care (01) | DRG 66 ==
LOC: ER 20:18 → MS 20:59
PROVIDERS: Registered Nurse Emergency; Admitting Provider Family Medicine; Emergency Provider Physician Assistant; PCP Internal Medicine; Visit Provider Family Medicine
DX: I63.232 Cerebral infarction due to unspecified occlusion or stenosis of left carotid arteries (principal); E83.42 Hypomagnesemia; E11.9 Type 2 diabetes mellitus without complications; I10 Essential (primary) hypertension; E78.5 Hyperlipidemia, unspecified; R29.810 Facial weakness; Z79.01 Long term (current) use of anticoagulants; Z66 Do not resuscitate; Z86.73 Personal history of transient ischemic attack (TIA), and cerebral infarction without residual deficits; Z79.4 Long term (current) use of insulin; Z87.891 Personal history of nicotine dependence; Z79.84 Long term (current) use of oral hypoglycemic drugs; I71.22 Aneurysm of the aortic arch, without rupture; I25.10 Atherosclerotic heart disease of native coronary artery without angina pectoris
CPT/HCPCS: 36415; 70496; 70498; 80053; 85027; 93005; 99285; 70551; 81003; 83735; 84439; 84443; 84484; 85025; 85610; 85730; 93010; 99223; 99238; J1644; J3475

== ENCOUNTER 2024-07-18 13:23 | Inpatient (IN) | payer OTHER, SELFPAY ==
[2024-07-18] VITALS (59 sets, daily range): BP systolic 82–137; BP diastolic 34–65; PULSE 88–134; RESP 13–26; TEMP 36.3–39.7; O2SAT 88–97
--- NOTE | 2024-07-18 13:15 | RT.EKG_ITS ---
APPROVED REPORT Exam: Resting ECG Reason for Exam: Dizziness Patient Location: E HR:113 bpm ECG Measurements Heart Rate 113 AXIS FL 182 P 76 QRSd 135 QRS -1 QT 347 T 238 QTc 476 Conclusion Sinus tachycardia 113 LBBB no stemi
[2024-07-18 13:57] LABS: BE (Venous) 2 mmol/L (-2-3); HCO3 (Venous) 27 mmol/L (23-28); O2 Sat (Venous) 88 %; TCO2 (Venous) 23 mmol/L (24-29); pCO2 (Venous) 43 mmHg (41-51); pO2 (Venous) 52 mmHg
[2024-07-18 13:59] LABS: Abs Immature Grans 0.02 10^3/uL (0.0-0.06); Absolute Basophil Count 0.03 10^3/uL (0.0-0.2); Absolute Eosinophil Count 0.02 10^3/uL (0.0-0.7); Absolute Lymphocyte Count 1.22 10^3/uL (1.2-3.4); Absolute Monocyte Count 0.64 10^3/uL (0.1-0.8); Absolute Neutrophil Count 5.34 10^3/uL (1.2-6.7); Basophils % 0.4 %; Eosinophils % 0.3 %; HCT 53.1 % (40.0-50.0); HGB 17.2 g/dL (13.5-17.5); Immature Grans % 0.3 %; Lymphocytes % 16.8 %; MCH 30.1 pg (27.0-33.0); MCHC 32.4 % (32.0-36.0); MCV 93 fL (80-95); MPV 11.5 fL (8.0-11.0); Monocytes % 8.8 %; Neutrophils % 73.4 %; Platelet Count 114 10^3/uL (130-400); RBC 5.72 10^6/uL (4.36-5.78); RDW 14.3 % (11.8-14.1); RDW-SD 48.3 fL; WBC 7.27 10^3/uL (4.4-10.8)
--- NOTE | 2024-07-18 14:00 | DI.RAD_ITS ---
Exam(s) XR PORTABLE CHEST AP EXAM: XR PORTABLE CHEST AP CLINICAL HISTORY: FEVER TECHNIQUE: 2D digital imaging was performed of the chest. One image was obtained. An AP view was ob tained. COMPARISON: CR PORTABLE CHEST ONE VIEW from 12/29/2016 CR CHEST 2 VIEWS PA,LAT from 10/02/2017 FINDINGS: MEDIASTINUM: Normal. HEART: Normal. PULMONARY VASCULATURE: Normal. LUNGS: There are increased lung markings in the left base. No focal consolidating infiltrate is seen . There is a rounded nodule overlying the anterior aspect of the left 6th rib and the posterior aspe ct of the left 8th rib. This may represent a nipple shadow. Pulmonary nodule cannot be excluded. PLEURAL SPACE: No pleural effusion or pneumothorax. BONE:Within normal limits for the patient's age. OTHER FINDINGS:Normal. IMPRESSION: 1. Increased lung markings in the left base. This may represent a pneumonia, edema or atelectasis. No focal consolidating infiltrate is seen. 2. Rounded nodule overlying the left 6th and 8th ribs as described above. This may represent a nippl e shadow. Repeat examination with nipple markers is recommended. If the finding persists, a CT scan may be obtained for further evaluation. DATA REPOSITORY: RADIATION DOSE DELIVERED:
[2024-07-18 14:12] LABS: INR 1.1 (0.9-1.1); PTT Activated 25.2 sec (20.6-30.2); Prothrombin Time 11.4 sec (9.1-11.1)
--- NOTE | 2024-07-18 14:16 | W.ED.GENAD ---
Discharge Plan Disposition Patient Disposition: Admit to [facility] Condition: Fair Discharge Details Clinical Impression: Acute hypotension, Pneumonia, Hypoxia Admit Date/Time: 07/18/24 17:25 Admit Provider: Terrell Campos Attending Provider: Terrell Campos Primary Care Provider: Kulwant Escobedo ED Provider: U[place]ano [place] General Date/Time Provider Initiated Documentation: 07/18/24 13:25. Limitations to Documentation: no limitations. Information obtained by: patient. HPI Narrative: 78-year-old gentleman with past medical history of CAD, CVA, diabetes, hypertension not currently on medication presents for evaluation of dizziness. He reports onset of symptoms this morning. He reports dizziness worse when he sits up or walks around. He says he feels fine if he is lying still. It is not associated with headache or chest pain. He is having some cold chills. He states the cold chills started last night. He reports that he does not have much of an appetite this morning has not really had anything to eat. He denies any cough abdominal pain, dysuria. Denies any sick contacts. Related Data Home Medications ?Medication ?Instructions ?Recorded ?Confirmed metoprolol tartrate 25 mg tablet 50 mg PO BID 01/23/13 07/18/24 nitroglycerin 0.4 mg sublingual 0.4 mg PO PRN PRN 01/28/14 07/18/24 tablet (Nitrostat) hydrochlorothiazide 12.5 mg tablet 12.5 mg PO DAILY 06/19/16 07/18/24 testosterone 4 mg/24 hr 1 ea transdermal DAILY 06/19/16 07/18/24 transdermal 24 hour patch (Androderm) Study Drug X 3 Kinds For Gout 12/29/16 07/18/24 losartan 100 mg tablet 50 mg PO QAM 08/20/22 07/18/24 acetaminophen 325 mg tablet 325 mg PO 3XD PRN Pain 09/12/22 07/18/24 allopurinol 300 mg tablet 300 mg PO 1XD 09/12/22 07/18/24 cetirizine 10 mg tablet 10 mg PO 1XD 09/12/22 07/18/24 cyanocobalamin (vitamin B-12) 1,000 mcg PO 1XD 09/12/22 07/18/24 1,000 mcg capsule diclofenac sodium 1 % topical gel 4 g topical 4XD PRN Pain 09/12/22 07/18/24 empagliflozin 25 mg tablet 25 mg PO 1XD 09/12/22 07/18/24 fluticasone propionate 50 50 mcg intranasal 1XD 09/12/22 07/18/24 mcg/actuation nasal spray,suspension ipratropium bromide 42 mcg (0.06 42 mcg intranasal 3XD 09/12/22 07/18/24 %) nasal spray semaglutide 1 mg/dose (2 mg/1.5 0.25 mg subcut QWEEK 09/12/22 07/18/24 mL) subcutaneous pen injector atorvastatin 80 mg tablet 80 mg PO DAILY 10/02/22 07/18/24 clopidogrel 75 mg tablet 75 mg PO DAILY #30 tabs 10/03/22 07/18/24 insulin glargine 100 unit/mL 18 unit subcut DAILY 07/18/24 07/18/24 subcutaneous solution (Lantus U-100 Insulin) levetiracetam 500 mg tablet 500 mg PO ONCE 07/18/24 07/18/24 ([place]) Previous Rx's ?Medication ?Instructions ?Recorded clopidogrel 75 mg tablet 75 mg PO DAILY #30 tabs 10/03/22 Allergies Allergy/AdvReac Type Severity Reaction Status Date / Time amoxicillin (Amoxicillin) Allergy Mild Itching Unverified 10/02/22 14:05 General Stated Complaint: Dizzy/Sync MAGY: 3 Exam Narrative Exam Narrative: Review of Systems: All systems reviewed & are unremarkable except as noted in HPI and below Well-developed, no acute distress NCAT PERRL, normal conjunctiva nystagmus when looking left RRR, hypotensive Unlabored respiratory effort, CTAB, no hypoxia Nondistended abdomen , soft non tender no focal neurologic deficits, generalized weakness but no focal deficit Course Vital Signs Vital signs: Vital Signs Temperature 36.3 C L 07/18/24 13:29 Pulse 114 H 07/18/24 13:29 Respiratory Rate 16 07/18/24 13:29 Blood Pressure 97/62 L 07/18/24 13:29 Pulse Oximetry 91 L 07/18/24 13:29 Temperature 36.3 C L 07/18/24 13:29 Temperature Source Temporal Artery Scan 07/18/24 13:29 Pulse 114 H 07/18/24 13:29 Respiratory Rate 18 07/18/24 13:53 Respiratory Effort Normal, Non-Labored 07/18/24 13:53 Respiratory Depth Normal 07/18/24 13:53 Respiratory Pattern Normal 07/18/24 13:53 Blood Pressure 97/62 L 07/18/24 13:29 Blood Pressure Position Sitting 07/18/24 13:29 Pulse Oximetry 91 L 07/18/24 13:29 Oxygen Delivery Method Room Air 07/18/24 13:29 Oxygen Flow Rate 0 07/18/24 13:29 Pain Level 0 07/18/24 13:29 Lab/Test Results Lab/Test Results: Laboratory Tests Range/Units 07/18/24 13:47 WBC (4.4-10.8) 10^3/uL 7.27 RBC (4.36-5.78) 10^6/uL 5.72 Hgb (13.5-17.5) g/dL 17.2 Hct (40.0-50.0) % 53.1 H MCV (80-95) fL 93 MCH (27.0-33.0) pg 30.1 MCHC (32.0-36.0) % 32.4 RDW (11.8-14.1) % 14.3 H Plt Count (130-400) 10^3/uL 114 L MPV (8.0-11.0) fL 11.5 H Immature Gran % % 0.3 Neutrophils % % 73.4 Lymphocytes % % 16.8 Monocytes % % 8.8 Eosinophils % % 0.3 Basophils % % 0.4 Nucleated RBC % (0.0-0.3) % 0.0 Absolute Neutrophils (1.2-6.7) 10^3/uL 5.34 Absolute Lymphocytes (1.2-3.4) 10^3/uL 1.22 Absolute Monocytes (0.1-0.8) 10^3/uL 0.64 Absolute Eosinophils (0.0-0.7) 10^3/uL 0.02 Absolute Basophils (0.0-0.2) 10^3/uL 0.03 PT (9.1-11.1) sec 11.4 H INR (0.9-1.1) 1.1 APTT (20.6-30.2) sec 25.2 VBG pH (7.31-7.41) 7.40 VBG pCO2 (41-51) mmHg 43 VBG pO2 mmHg 52 VBG HCO3 (23-28) mmol/L 27 VBG Total CO2 (24-29) mmol/L 23 L VBG O2 Saturation % 88 VBG Base Excess (-2-3) mmol/L 2 Medical Decision Making Emergency evaluation of dizziness. Patient is noted to be slightly hypotensive and and tachycardic. EKG was reviewed and independently interpreted: Sinus tachycardia 113 left bundle branch block, nonspecific ST changes. No STEMI. The patient is endorsing some subjective fever and chills which is concerning for possible infectious etiology. Dizziness likely secondary to the hypotension as it does seem to be positional. No concerning features for central etiology. Plan for gentle fluid resuscitation. Will check lab work and continue cardiac monitoring for vital sign improved. Despite IV fluids patient has remained fairly hypotensive and very significant orthostatic changes. Lab work does not reveal leukocytosis or anemia. His VBG does not reveal any acidosis or signs of respiratory failure or metabolic decompensation. Creatinine is 1.5 which is slightly above baseline but otherwise no significant electrolyte derangement. Urinalysis is not infected. His is asking for a tick panel because he does mow the lawn though there has been no known exposures or rashes. The chest x-ray was obtained and reviewed and there does appear to be possible consolidation but this seems to be small. Otherwise I do not have an explanation for his new hypoxia and oxygen requirement. does report that they just had a family member of pneumonia 2 weeks ago. Given his elevation in his [place] though mild, persistent hypotension and symptoms of subjective fever chills and unwell, concern for underlying infectious etiology though it may be early, wound proceed with pneumonia treatment. Blood cultures have been ordered, will begin therapy with Rocephin and azithromycin. Given his need for oxygen, and continued fluid resuscitation will admit to the hospital for further management. Quality:SDOH Health Related Social Needs: No Data to Display PFSH All Active Problems (Updated 07/18/24 @ 18:22 by Riddhi Grimm APRN) Severe sepsis (Acute) Gout (Chronic) On deep vein thrombosis (DVT) prophylaxis (Acute) HONG (acute kidney injury) (Acute) Acute hypoxic respiratory failure (Acute) Hypoxia (Acute) Pneumonia (Acute) Acute hypotension (Acute) Hypomagnesemia (Acute) Chest pain (Acute 01/23/13) Unstable angina (Acute 01/23/13) Diabetes mellitus type 2, controlled (Chronic) Hypertension (Chronic) Hyperlipidemia (Chronic) Medical History (Updated 07/18/24 @ 18:22 by Riddhi Grimm APRN) CAD (coronary artery disease), [place] coronary artery Social History Smoking/Tobacco Use Status: Former Tobacco Use Smoking risk assessment performed?: Yes Alcohol Intake: never Drug use: Never Substance use type: does not use Housing: house Do you feel safe in your relationship?: Yes
[2024-07-18] MEDS: Normal Saline 250 ML 500 ML IV (14:24)
[2024-07-18 14:26] LABS: ALT 23 U/L (16-63); AST 20 U/L (15-37); Albumin 3.8 g/dL (3.4-5.0); Alkaline Phosphatase 92 U/L (46-116); Anion Gap 9.2 mmol/L (3-11); BUN 16 mg/dL (7-18); Bilirubin, Total 1.3 mg/dL (0.2-1.0); CO2 28.8 mmol/L (21.0-32.0); CREATININE 1.5 mg/dL (0.70-1.30); Calcium 8.9 mg/dL (8.5-10.1); Chloride 102 mmol/L (98-107); Estimated GFR 47.95 (mL/min/1.73m2); Glucose 180 mg/dL (74-106); Magnesium 1.7 mg/dL (1.8-2.4); Potassium 4.1 mmol/L (3.5-5.1); Sodium 140 mmol/L (136-145); TSH (W/Ref FT4) 1.11 uIU/mL (0.36-3.74); Total Protein 6.8 g/dL (6.4-8.2); Troponin I 17 ng/L (<or=76)
[2024-07-18 14:33] LABS: Bilirubin Small (Negative); Blood Trace-intact (Negative); Clarity Clear (Clear); Glucose 500 mg/dL (Negative); Ketones 15 mg/dL (Negative); Leukocyte Esterase Negative (Negative); Nitrite Negative (Negative); Specific Gravity 1.015 (1.005-1.025); Urobilinogen 0.2 mg/dL (Up to 0.2); pH 5.5 (5-8)
[2024-07-18 14:43] LABS: Bacteria Rare HPF (Negative); C & S Indicated? No; Casts Negative LPF (Negative); Crystals Negative HPF (Negative); Epithelial Cells Rare HPF (Negative); Mucus Negative (Negative); RBC 0-2 HPF (0-2); WBC 0-2 HPF (0-5)
[2024-07-18 15:19] LABS: Troponin I 16 ng/L (<or=76)
[2024-07-18 15:30] LABS: Procalcitonin 0.46 ng/mL
[2024-07-18] MEDS: Normal Saline 500 ML IV ×2 (15:40→17:39)
--- NOTE | 2024-07-18 17:02 | DI.VRAD_ITS ---
PROCEDURE INFORMATION: Exam: XR Chest Exam date and time: 07/18/2024 2:43 PM Age: 78 years old Clinical indication: Fever TECHNIQUE: Imaging protocol: Radiologic exam of the chest. Views: 1 view. COMPARISON: CR CHEST 2 VIEWS PA,LAT 10/02/2017 3:48 PM FINDINGS: Tubes, catheters and devices: Monitoring leads overlie the chest. Lungs: Mild patchy interstitial prominence of the left lower lung. Questionable nodular structure overlying the confluence of the anterior left 6th and posterior left 8th ribs. No focal airspace consolidation. Pleural spaces: Unremarkable. No pleural effusion. No pneumothorax. Heart/Mediastinum: Status post coronary artery stent. Bones/joints: Mild degenerative changes of the shoulders and thoracic spine. IMPRESSION: 1. Mild patchy interstitial prominence of the left lower lung, which may represent edema versus infection or inflammation. 2. Question of nodule of the lateral left lower lung versus nipple shadow or calcified granuloma. Consider CT for further characterization. Dictated and Authenticated by: Domenic Lee MD. Orderin Linden Walton MD
--- NOTE | 2024-07-18 17:12 | W.PM.HP.N ---
Date of service: 07/18/24 Time of Service: 17:21 Assessment and Plan Assessment and plan (1) Severe sepsis: Status: Acute Assessment and plan: Tachycardia HR 96 and tachypnea RR 22 Source respiratory-penumonia Severity Cr 1.5 from 1.0 and hypotension resolving with IVF Blood C&S pending (2) Acute hypoxic respiratory failure: Status: Acute Assessment and plan: RA at home - required 2l/min of O2 in the ED for sat 88%- resolving with o2 at 94% on 2l/min (3) Pneumonia: Status: Acute Assessment and plan: On Ceftriaxone and azithromycin IV (4) Acute hypotension: Status: Acute Assessment and plan: Hold BP meds (5) Hypertension: Status: Chronic Assessment and plan: As above (6) Hyperlipidemia: Status: Chronic Assessment and plan: on home statin (7) Diabetes mellitus type 2, controlled: Status: Chronic Assessment and plan: Gluc & HS Home dose lantus and SSI coverage (8) HONG (acute kidney injury): Status: Acute Assessment and plan: LR at 100cc/hr BMP in AM (9) Gout: Status: Chronic Assessment and plan: On allopurinol (10) Hypomagnesemia: Status: Acute Assessment and plan: Magnesium supplementation mag in AM (11) On deep vein thrombosis (DVT) prophylaxis: Status: Acute Assessment and plan: LMWH Discussed with Dr. Campos History of Present Illness History of Present Illness Chief Complaint: Dizziness, chills Narrative: This [age] years old male patient please mail patient medical history hypertension, diabetes, stroke presented to the ED for evaluation of dizziness chills and subjective fevers. Workup in the ED was positive for chest x-ray revealing increased markings pain suspicious for pneumonia. Blood work was unremarkable except for creatinine of 53 and creatinine of 1.5 with baseline of 1.0. The patient presented with hypotension, tachypnea with respiratory rate 22 and tachycardia with heart rate in the 90s; also hypoxic at 88%on ambulation requiring oxygen cannula with improvement at 94%. The patient was treated with IV fluid, ceftriaxone and IV azithromycin and was admitted to the medical surgical floor for hypoxic respiratory failure, severe sepsis, left lower lobe pneumonia and HONG. Patient is a full code. The patient reported dizziness, subjective fever, chills and decreased oral intake. Patient denied fall, chest pain, cough, nausea, vomiting, diarrhea or dysuria. Review of Systems All systems reviewed & are unremarkable except as noted in HPI and below PFSH All Active Problems (Updated 07/18/24 @ 18:22 by Riddhi Grimm APRN) Severe sepsis (Acute) Gout (Chronic) On deep vein thrombosis (DVT) prophylaxis (Acute) HONG (acute kidney injury) (Acute) Acute hypoxic respiratory failure (Acute) Hypoxia (Acute) Pneumonia (Acute) Acute hypotension (Acute) Hypomagnesemia (Acute) Chest pain (Acute 01/23/13) Unstable angina (Acute 01/23/13) Diabetes mellitus type 2, controlled (Chronic) Hypertension (Chronic) Hyperlipidemia (Chronic) Medical History (Updated 07/18/24 @ 18:22 by Riddhi Grimm APRN) CAD (coronary artery disease), [place] coronary artery Social History Smoking/Tobacco Use Status: Former Tobacco Use Smoking risk assessment performed?: Yes Alcohol Intake: never Drug use: Never Substance use type: does not use Housing: house Do you feel safe in your relationship?: Yes Meds Allergies and Home Medications Allergies Allergy/AdvReac Type Severity Reaction Status Date / Time amoxicillin (Amoxicillin) Allergy Mild Itching Unverified 10/02/22 14:05 Home Medications ?Medication ?Instructions ?Recorded ?Confirmed ?Type metoprolol tartrate 25 mg tablet 50 mg PO BID 01/23/13 07/18/24 History nitroglycerin 0.4 mg sublingual 0.4 mg PO PRN PRN 01/28/14 07/18/24 History tablet (Nitrostat) hydrochlorothiazide 12.5 mg tablet 12.5 mg PO DAILY 06/19/16 07/18/24 History testosterone 4 mg/24 hr 1 ea transdermal DAILY 06/19/16 07/18/24 History transdermal 24 hour patch (Androderm) Study Drug X 3 Kinds For Gout 12/29/16 07/18/24 History losartan 100 mg tablet 50 mg PO QAM 08/20/22 07/18/24 History acetaminophen 325 mg tablet 325 mg PO 3XD PRN Pain 09/12/22 07/18/24 History allopurinol 300 mg tablet 300 mg PO 1XD 09/12/22 07/18/24 History cetirizine 10 mg tablet 10 mg PO 1XD 09/12/22 07/18/24 History cyanocobalamin (vitamin B-12) 1,000 mcg PO 1XD 09/12/22 07/18/24 History 1,000 mcg capsule diclofenac sodium 1 % topical gel 4 g topical 4XD PRN Pain 09/12/22 07/18/24 History empagliflozin 25 mg tablet 25 mg PO 1XD 09/12/22 07/18/24 History fluticasone propionate 50 50 mcg intranasal 1XD 09/12/22 07/18/24 History mcg/actuation nasal spray,suspension ipratropium bromide 42 mcg (0.06 42 mcg intranasal 3XD 09/12/22 07/18/24 History %) nasal spray semaglutide 1 mg/dose (2 mg/1.5 0.25 mg subcut QWEEK 09/12/22 07/18/24 History mL) subcutaneous pen injector atorvastatin 80 mg tablet 80 mg PO DAILY 10/02/22 07/18/24 History clopidogrel 75 mg tablet 75 mg PO DAILY #30 tabs 10/03/22 07/18/24 Rx insulin glargine 100 unit/mL 18 unit subcut DAILY 07/18/24 07/18/24 History subcutaneous solution (Lantus U-100 Insulin) levetiracetam 500 mg tablet 500 mg PO ONCE 07/18/24 07/18/24 History ([place]) Exam Narrative Exam Narrative: Constitutional The patient is without acute distress HENMT: Head is atraumatic, normocephalic, no lymphadenopathy. Facial structures with normal appearance Eyes: Well aligned, intact ROM Neck: Normal ROM, no meningeal signs Neuro:alert and oriented to self, person, place time and situation. No neurological focal deficit, Resp: Normal respiratory pattern, speaks in full sentences, unlabored breathing, clear lung bilaterally Cardio: regular rhythm, S1, S2, no murmur GI: Abdomen is not distended, soft and non tender, bowel sounds are present : Negative Costovertebral angle tenderness Back/spine/Pelvis: No back tenderness, normal alignment Integumentary: No skin lesions or rash to exposed skin Extremities: moves all 4 ext Psych: RASS 0, congruent mood and normal affect. Results Labs 07/18/24 13:47 07/18/24 13:47 Labs: Laboratory Results - last 24 hr 07/18/24 07/18/24 07/18/24 13:47 14:26 14:46 WBC 7.27 RBC 5.72 Hgb 17.2 Hct 53.1 H MCV 93 MCH 30.1 MCHC 32.4 RDW 14.3 H Plt Count 114 L MPV 11.5 H Immature Gran % 0.3 Neutrophils % 73.4 Lymphocytes % 16.8 Monocytes % 8.8 Eosinophils % 0.3 Basophils % 0.4 Nucleated RBC % 0.0 Absolute Neutrophils 5.34 Absolute Lymphocytes 1.22 Absolute Monocytes 0.64 Absolute Eosinophils 0.02 Absolute Basophils 0.03 PT 11.4 H INR 1.1 APTT 25.2 VBG pH 7.40 VBG pCO2 43 VBG pO2 52 VBG HCO3 27 VBG Total CO2 23 L VBG O2 Saturation 88 VBG Base Excess 2 Sodium 140 Potassium 4.1 Chloride 102 Carbon Dioxide 28.8 Anion Gap 9.2 BUN 16 Creatinine 1.5 H Est GFR (CKD-EPI 2020) 47.95 Glucose 180 H Calcium 8.9 Magnesium 1.7 L Total Bilirubin 1.3 H AST 20 ALT 23 Alkaline Phosphatase 92 Troponin I 17 16 Total Protein 6.8 Albumin 3.8 Procalcitonin 0.46 TSH 1.11 Urine Color Yellow Urine Clarity Clear Urine pH 5.5 Ur Specific [place] 1.015 Urine Protein 100 H Urine Ketones 15 H Urine Blood Trace-intact H Urine Nitrite Negative Urine Bilirubin Small H Urine Urobilinogen 0.2 Ur Leukocyte Esterase Negative Urine RBC 0-2 Urine WBC 0-2 Ur Epithelial Cells Rare Urine Crystals Negative Urine Bacteria Rare Urine Casts Negative Urine Mucus Negative Ur Culture Indicated? No Urine Glucose 500 H 07/18/24 16:48 WBC RBC Hgb Hct MCV MCH MCHC RDW Plt Count MPV Immature Gran % Neutrophils % Lymphocytes % Monocytes % Eosinophils % Basophils % Nucleated RBC % Absolute Neutrophils Absolute Lymphocytes Absolute Monocytes Absolute Eosinophils Absolute Basophils PT INR APTT VBG pH VBG pCO2 VBG pO2 VBG HCO3 VBG Total CO2 VBG O2 Saturation VBG Base Excess Sodium Potassium Chloride Carbon Dioxide Anion Gap BUN Creatinine Est GFR (CKD-EPI 2020) Glucose Calcium Magnesium Total Bilirubin AST ALT Alkaline Phosphatase Troponin I Cancelled Total Protein Albumin Procalcitonin TSH Urine Color Urine Clarity Urine pH Ur Specific [place] Urine Protein Urine Ketones Urine Blood Urine Nitrite Urine Bilirubin Urine Urobilinogen Ur Leukocyte Esterase Urine RBC Urine WBC Ur Epithelial Cells Urine Crystals Urine Bacteria Urine Casts Urine Mucus Ur Culture Indicated? Urine Glucose Last Vital Signs Temp 36.9 C 07/18/24 14:17 Pulse 96 H 07/18/24 16:58 Resp 20 07/18/24 16:50 BP 100/51 L 07/18/24 16:58 Pulse Ox 93 07/18/24 16:58 Time Spent Time spent with Patient: >75 minutes Time was spent: preparing to see the patient(eg.review tests), obtaining and/or reviewing separately otained hiistory, ordering medications,tests, procedures, referring, communicating with other health personal care aide, indepentently interpreting results, counseling the patient and care coordination
[2024-07-18 18:38] LABS: COVID-19 PCR Negative (Negative); Influenza A PCR Negative (Negative); Influenza B PCR Negative (Negative); RSV PCR Negative (Negative)
[2024-07-18 18:40] LABS: Source Nasopharynx
[2024-07-18] MEDS: cefTRIAXone 1 GM/50 ML BAG IVPB (18:42)
--- NOTE | 2024-07-18 19:15 | RT.EKG_ITS ---
APPROVED REPORT Exam: Resting ECG Reason for Exam: ? aflutter Patient Location: I HR:132 bpm ECG Measurements Heart Rate 132 AXIS RI [id number] P [id number] QRSd 121 QRS 10 QT 339 T 58 QTc 503 Conclusion Poor quality data, interpretation may be affected Atrial flutter with predominant 2:1 AV block...A-rate 256, multiple Ps Left bundle branch block...QRSd>120, broad/notched R Artifact in lead(s) I,II,III,aVR,aVL,aVF,V1,V2,V3,V4,V5,V6
--- NOTE | 2024-07-18 19:21 | W.PC.ACHO ---
Registration Status: Primary Language: Preferred Language: ED Information & Data Chief Complaint Dizzy/Sync 07/18/24 14:21 Triage Note patient dizziness started 07/18/24 13:29 last night, woke this morning with a headache not responsive to tylenol at home. no new medications, pt is a DM2, BGL in triage 155 Medical / Surgical History (Last Updated 10/02/22 @ 23:22 by Wilbur Riley) CAD (coronary artery disease), [place] coronary artery Most Recent Vital Signs Temperature 36.9 C 07/18/24 14:17 Temperature Source Oral 07/18/24 14:17 Pulse 112 H 07/18/24 18:48 Pulse Rhythm Regular 07/18/24 18:48 Pulse 95 H 07/18/24 17:43 Respiratory Rate 19 07/18/24 17:50 Respiratory Effort Normal, Non-Labored 07/18/24 18:48 Respiratory Depth Normal 07/18/24 18:48 Respiratory Pattern Normal 07/18/24 18:48 Blood Pressure 133/54 L 07/18/24 17:46 Blood Pressure Mean 80 07/18/24 17:46 Blood Pressure Position Sitting 07/18/24 13:29 Pulse Oximetry 94 07/18/24 17:50 Oxygen Delivery Method Room Air 07/18/24 18:48 Oxygen Flow Rate 0 07/18/24 18:48 Pain Level 0 07/18/24 18:48 Allergies amoxicillin (Amoxicillin) Allergy (Mild, Unverified 10/02/22 14:05) Itching Precautions Isolation Standard precaution 07/18/24 13:53 Active Medications Generic Name Dose Route Start Last Admin Trade Name Delmerq PRN Reason Stop Dose Admin Albuterol/Ipratropium 3 ml 07/18/24 18:00 07/18/24 18:51 Albuterol/Ipratropium 3 Ml Upd Vial UPD Not Given Q6H SOHEILA IV IV Catheter Type [Right Saline Lock Antecubital] IV Catheter Gauge [Right 18 Antecubital] Diet Orders Category Date Time Status Diabetes Consistent CHO/Heart Healthy [DIET] Nutrition 07/18/24 Dinner Active Diagnostics 07/18/24 07/18/24 07/18/24 Range/Units 17:51 16:48 14:46 WBC (4.4-10.8) 10^3/uL RBC (4.36-5.78) 10^6/uL Hgb (13.5-17.5) g/dL Hct (40.0-50.0) % MCV (80-95) fL MCH (27.0-33.0) pg MCHC (32.0-36.0) % RDW (11.8-14.1) % Plt Count (130-400) 10^3/uL MPV (8.0-11.0) fL Immature Gran % % Neutrophils % % Lymphocytes % % Monocytes % % Eosinophils % % Basophils % % Nucleated RBC % (0.0-0.3) % Absolute Neutrophils (1.2-6.7) 10^3/uL Absolute Lymphocytes (1.2-3.4) 10^3/uL Absolute Monocytes (0.1-0.8) 10^3/uL Absolute Eosinophils (0.0-0.7) 10^3/uL Absolute Basophils (0.0-0.2) 10^3/uL PT (9.1-11.1) sec INR (0.9-1.1) APTT (20.6-30.2) sec VBG pH (7.31-7.41) VBG pCO2 (41-51) mmHg VBG pO2 mmHg VBG HCO3 (23-28) mmol/L VBG Total CO2 (24-29) mmol/L VBG O2 Saturation % VBG Base Excess (-2-3) mmol/L Sodium (136-145) mmol/L Potassium (3.5-5.1) mmol/L Chloride (98-107) mmol/L Carbon Dioxide (21.0-32.0) mmol/L Anion Gap (3-11) mmol/L BUN (7-18) mg/dL Creatinine (0.70-1.30) mg/dL Est GFR (CKD-EPI 2020) (mL/min/1.73m2) Glucose (74-106) mg/dL Calcium (8.5-10.1) mg/dL Magnesium (1.8-2.4) mg/dL Total Bilirubin (0.2-1.0) mg/dL AST (15-37) U/L ALT (16-63) U/L Alkaline Phosphatase (46-116) U/L Troponin I Cancelled 16 (<or=76) ng/L Total Protein (6.4-8.2) g/dL Albumin (3.4-5.0) g/dL Procalcitonin 0.46 ng/mL TSH (0.36-3.74) uIU/mL Urine Color (Yellow) Urine Clarity (Clear) Urine pH (5-8) Ur Specific [place] (1.005-1.025) Urine Protein (Neg-Trace) mg/dL Urine Ketones (Negative) mg/dL Urine Blood (Negative) Urine Nitrite (Negative) Urine Bilirubin (Negative) Urine Urobilinogen (Up to 0.2) mg/dL Ur Leukocyte Esterase (Negative) Urine RBC (0-2) HPF Urine WBC (0-5) HPF Ur Epithelial Cells (Negative) HPF Urine Crystals (Negative) HPF Urine Bacteria (Negative) HPF Urine Casts (Negative) LPF Urine Mucus (Negative) Ur Culture Indicated? Urine Glucose (Negative) mg/dL B. divergens/MO-1 PCR Pending Babesia duncani (PCR) Pending Babesia microti DNA PCR Pending Lyme Disease Antibody Pending COVID-19 Source Nasopharynx SARS-CoV-2 (PCR) Negative (Negative) E.chaffeensis DNA (PCR) Pending E.ewingii/canis DNA PCR Pending E.muris eauclairensis (PCR) Pending Influenza Type A (PCR) Negative (Negative) Influenza Type B (PCR) Negative (Negative) RSV (PCR) Negative (Negative) A. phagocytophilum (PCR) Pending Blood B. miyamotoi (PCR) Pending 07/18/24 07/18/24 Range/Units 14:26 13:47 WBC 7.27 (4.4-10.8) 10^3/uL RBC 5.72 (4.36-5.78) 10^6/uL Hgb 17.2 (13.5-17.5) g/dL Hct 53.1 H (40.0-50.0) % MCV 93 (80-95) fL MCH 30.1 (27.0-33.0) pg MCHC 32.4 (32.0-36.0) % RDW 14.3 H (11.8-14.1) % Plt Count 114 L (130-400) 10^3/uL MPV 11.5 H (8.0-11.0) fL Immature Gran % 0.3 % Neutrophils % 73.4 % Lymphocytes % 16.8 % Monocytes % 8.8 % Eosinophils % 0.3 % Basophils % 0.4 % Nucleated RBC % 0.0 (0.0-0.3) % Absolute Neutrophils 5.34 (1.2-6.7) 10^3/uL Absolute Lymphocytes 1.22 (1.2-3.4) 10^3/uL Absolute Monocytes 0.64 (0.1-0.8) 10^3/uL Absolute Eosinophils 0.02 (0.0-0.7) 10^3/uL Absolute Basophils 0.03 (0.0-0.2) 10^3/uL PT 11.4 H (9.1-11.1) sec INR 1.1 (0.9-1.1) APTT 25.2 (20.6-30.2) sec VBG pH 7.40 (7.31-7.41) VBG pCO2 43 (41-51) mmHg VBG pO2 52 mmHg VBG HCO3 27 (23-28) mmol/L VBG Total CO2 23 L (24-29) mmol/L VBG O2 Saturation 88 % VBG Base Excess 2 (-2-3) mmol/L Sodium 140 (136-145) mmol/L Potassium 4.1 (3.5-5.1) mmol/L Chloride 102 (98-107) mmol/L Carbon Dioxide 28.8 (21.0-32.0) mmol/L Anion Gap 9.2 (3-11) mmol/L BUN 16 (7-18) mg/dL Creatinine 1.5 H (0.70-1.30) mg/dL Est GFR (CKD-EPI 2020) 47.95 (mL/min/1.73m2) Glucose 180 H (74-106) mg/dL Calcium 8.9 (8.5-10.1) mg/dL Magnesium 1.7 L (1.8-2.4) mg/dL Total Bilirubin 1.3 H (0.2-1.0) mg/dL AST 20 (15-37) U/L ALT 23 (16-63) U/L Alkaline Phosphatase 92 (46-116) U/L Troponin I 17 (<or=76) ng/L Total Protein 6.8 (6.4-8.2) g/dL Albumin 3.8 (3.4-5.0) g/dL Procalcitonin ng/mL TSH 1.11 (0.36-3.74) uIU/mL Urine Color Yellow (Yellow) Urine Clarity Clear (Clear) Urine pH 5.5 (5-8) Ur Specific [place] 1.015 (1.005-1.025) Urine Protein 100 H (Neg-Trace) mg/dL Urine Ketones 15 H (Negative) mg/dL Urine Blood Trace-intact H (Negative) Urine Nitrite Negative (Negative) Urine Bilirubin Small H (Negative) Urine Urobilinogen 0.2 (Up to 0.2) mg/dL Ur Leukocyte Esterase Negative (Negative) Urine RBC 0-2 (0-2) HPF Urine WBC 0-2 (0-5) HPF Ur Epithelial Cells Rare (Negative) HPF Urine Crystals Negative (Negative) HPF Urine Bacteria Rare (Negative) HPF Urine Casts Negative (Negative) LPF Urine Mucus Negative (Negative) Ur Culture Indicated? No Urine Glucose 500 H (Negative) mg/dL B. divergens/MO-1 PCR Babesia duncani (PCR) Babesia microti DNA PCR Lyme Disease Antibody COVID-19 Source SARS-CoV-2 (PCR) (Negative) E.chaffeensis DNA (PCR) E.ewingii/canis DNA PCR E.muris eauclairensis (PCR) Influenza Type A (PCR) (Negative) Influenza Type B (PCR) (Negative) RSV (PCR) (Negative) A. phagocytophilum (PCR) Blood B. miyamotoi (PCR) 07/18/24 18:02 Blood Culture - Pending Blood 07/18/24 17:18 Blood Culture - Pending Blood [id number] Documentation Fingerstick Glucose Start: 07/18/24 13:35 Freq: Status: Complete Protocol: Activity Type Activity Date Activity User E-sign Co-sign Detail Recorded Client Recorded Date Recorded By Document 07/18/24 13:34 LAWSON KIMBLE(3) [id number] 07/18/24 13:35 LAWSON KIMBLE(4) Intake and Output - 24 Hour Total 07/18/24 13:23 thru 07/18/24 18:48 Intake Total 1260 Balance 1260 Weight 79.379 kg Intake: IV 1260 Other: Urine Appearance Clear Falls Risk Assessment History of Falls No History 07/18/24 18:48 Contributing Factors Unstable,Impairments, 07/18/24 18:48 Medications Ambulatory Aids Independent 07/18/24 18:48 Tubes/Lines W/no contributing factors 07/18/24 18:48 Gait Evaluation W/no contributing factors 07/18/24 18:48 Cognition No cognitive impairment 07/18/24 13:53 Fall Total Score 29 07/18/24 18:48 Level of Risk Moderate Risk 07/18/24 18:48 Problems (Last Updated 10/02/22 @ 23:22 by Wilbur Riley) Severe sepsis (Acute) Gout (Chronic) On deep vein thrombosis (DVT) prophylaxis (Acute) HONG (acute kidney injury) (Acute) Acute hypoxic respiratory failure (Acute) Pneumonia (Acute) Acute hypotension (Acute) Hypomagnesemia (Acute) Diabetes mellitus type 2, controlled (Chronic) Hypertension (Chronic) Hyperlipidemia (Chronic) v v v v v v v v v Sending and/or Receiving Nurses: Please use comment section below to note any information pertinent to the patient hand-off not included above. Information / Comments: Pt came to ED for persistent headache and lightheadedness as well as rigors with no fever. Pt was found to have PNA as well as CAP. Pt was settled to the floor and admission completed. All questions answered. CAll burgos within reach. Report received from:
[2024-07-18] MEDS: Lactated Ringers 1,000 ML 100 ML IV ×2 (19:48→21:05)
[2024-07-18] MEDS: MAGNESIUM SULFATE 2 GM/50 ML BAG IV_INF (19:49)
[2024-07-18] MEDS: AZITHROMYCIN 500 MG in Normal Saline 250 ML 250 MG IVPB (19:53)
[2024-07-18] MEDS: Normal Saline Flush 10 ML SYR IVP ×2 (19:54→19:55)
[2024-07-18] MEDS: Enoxaparin 40 MG/0.4 ML SYR SC (19:54)
[2024-07-18] MEDS: Atorvastatin 40 MG TAB 80 MG PO (19:55)
[2024-07-18] MEDS: levETIRAcetam 500 MG TAB PO (20:05)
[2024-07-18] MEDS: Acetaminophen 500 MG TAB PO (20:45)
[2024-07-19] VITALS (29 sets, daily range): BP systolic 103–139; BP diastolic 44–80; PULSE 78–130; RESP 3–24; TEMP 36.8–39.4; O2SAT 84–96
[2024-07-19] MEDS: Acetaminophen 500 MG TAB PO ×4 (01:35→18:23)
[2024-07-19] MEDS: Albuterol/Ipratropium 3 ML UPD VIAL UPD ×3 (05:10→23:55)
[2024-07-19 06:40] LABS: Abs Immature Grans 0.02 10^3/uL (0.0-0.06); Absolute Basophil Count 0.04 10^3/uL (0.0-0.2); Absolute Eosinophil Count 0.15 10^3/uL (0.0-0.7); Absolute Lymphocyte Count 1.56 10^3/uL (1.2-3.4); Absolute Monocyte Count 0.29 10^3/uL (0.1-0.8); Absolute Neutrophil Count 3.77 10^3/uL (1.2-6.7); Basophils % 0.7 %; Eosinophils % 2.6 %; HCT 52.6 % (40.0-50.0); HGB 16.4 g/dL (13.5-17.5); Immature Grans % 0.3 %; Lymphocytes % 26.8 %; MCH 29.9 pg (27.0-33.0); MCHC 31.2 % (32.0-36.0); MCV 96 fL (80-95); MPV 11.5 fL (8.0-11.0); Neutrophils % 64.6 %; RBC 5.49 10^6/uL (4.36-5.78); RDW 14.5 % (11.8-14.1); WBC 5.83 10^3/uL (4.4-10.8)
[2024-07-19 06:49] LABS: BUN 16 mg/dL (7-18); CREATININE 1.6 mg/dL (0.70-1.30); Calcium 8.6 mg/dL (8.5-10.1); Chloride 103 mmol/L (98-107); Estimated GFR 44.38 (mL/min/1.73m2); Glucose 128 mg/dL (74-106); Sodium 141 mmol/L (136-145)
[2024-07-19 07:01] LABS: Platelet Count 74 10^3/uL (130-400)
[2024-07-19] MEDS: Lactated Ringers 1,000 ML 100 ML IV ×2 (07:52→19:59)
[2024-07-19] MEDS: Allopurinol 300 MG TAB PO (09:07)
[2024-07-19] MEDS: Cetirizine 10 MG TAB PO (09:07)
[2024-07-19] MEDS: Empaglifozin 25 MG TAB PO (09:07)
[2024-07-19] MEDS: Metoprolol 50 MG TAB PO ×2 (09:08→19:15)
[2024-07-19] MEDS: Clopidogrel 75 MG TAB PO (09:08)
[2024-07-19] MEDS: Cyanocobalamin 500 MCG TAB 1000 MCG PO (09:08)
--- NOTE | 2024-07-19 09:25 | INITIAL_ITS ---
Date of service: 07/19/24 Time of Service: 09:25 Care Management Initial Assmt Initial Assessment Reason for Hospitalization: hypotension, pneumonia, hypoxia Functional Status/Living Situation Patient Presentation: Shukri presented to the ED yesterday afternoon with c/o dizziness, especially when up and walking. He also reported some chills and poor appetite. He was admitted for tx of pneumonia, hypoxia, and hypotension. Ivan was sitting up in bed, his , Jaky, was visiting, when CM met with him today. Both were very pleasant. Ivan stated that he was feeling a bit better. He was noted to still have IVF running at 100cc/h. He did seem a bit confused, but easily able to hold a conversation. Ivan is still driving, and is independent at baseline. He has slowed down some, but Jaky voiced no concerns for him in the home. Ivan was in the [employer] for many years, and has lived in many different places in the world. He has [place] insurance. Ivan will be ordered for a PT consult when he is more stable, Ivan and Coby are aware that this will likely happen tomorrow. Town of Residence: [facility] Resides with: Spouse (Chelsea) Significant Other/Family: Local (daughter, Leona and grandson Amanuel live in [place], [place]. Leona is very supportive.) Natural Supports: family Employment Status: Retired Instrumental Activities of Daily Living (ADLs): Independent Activities/Hobbies/SocialSupport: Likes to watch TV and mow the lawn Medications Medication Management: Issues/Barriers (was not able to give RN his doses or medications) Physical Functioning/Mobility Assistive Device: cane Advance Directives Advance Directives: Do you have an Advance Directive: N 09/12/22 09:41 AD On File at [facility]: N 09/12/22 09:41 Date Asked 07/18/24 07/18/24 15:05 AD Date Reviewed COLST On File at [facility] No 10/02/22 20:14 COLST Date Scanned Code Status Resuscitation Status Full Code Insurance Coverage/Financial Issues Insurance: [place] - [phone] Care Team Visit Care Team Role Provider Type Yudith Agudelo NP NURSE PRACTITIONER Kulwant Escobedo Primary Care Provider NON-[facility] STAFF PHYSICIAN Marie Diaz RDN, [facility] Other Providers LIVE TRUCK OPERATOR Gildardo Patel RDN Other Providers LIVE TRUCK OPERATOR Urbano Cheatham MD Emergency Provider [facility] STAFF PHYSICIAN Terrell Campos Admit Provider [facility] STAFF PHYSICIAN Attending Provider Discharge Potential Discharge Needs: PT Evaluation and PCP F/U Appt Anticipated Barriers to Discharge: None Identified Patient/Family Education Needs: Review discharge instructions, discuss Ask Me Three Transportation: Private vehicle Plan: Anticipate that Ivan will be discharged home with no new services, vs HH PT. He will f/u with his PCP and continue per his plan of care. CM will continue to follow and update the plan as needed. Social Determinants of Health Screening Social Determinants of health last assessed in clinic: 07/19/24 Will the Patient Participate in the Screening?: Yes Do you worry about having a steady place to live?: no Problems where you live: no known problems In the past 12 months, have you had to go without electric, gas, oil or water in your home?: no 1. Within the past 12 months, we worried whether our food would run out before we got money to buy more.: Never true 2. Within the past 12 months, the food we bought just didn't last and we didn't have money to get more.: Never true Has lack of transportation kept you from medical appointments or from doing things needed for daily living?: no Has anyone in your life made you feel unsafe or unsupported?: no How hard is it for you to pay for the very basics like food, housing, medical care, and heating? Would you say it is:: Not hard at all Do you want help finding or keeping work or a job?: I do not need or want help If for any reason you need help with day-to-day activities such as bathing, preparing meals, shopping, managing finances, etc., do you get the help you need?: I don?t need any help How often do you feel lonely or isolated from those around you?: Never Do you speak a language other than Slov[place] at home?: No Does the patient want assistance with any of the above?: No PFSH All Active Problems (Updated 07/19/24 @ 12:34 by Yudith Agudelo NP) Gout (Chronic) On deep vein thrombosis (DVT) prophylaxis (Acute) HONG (acute kidney injury) (Acute) Acute hypoxic respiratory failure (Acute) Hypoxia (Acute) Pneumonia (Acute) Acute hypotension (Acute) Hypomagnesemia (Acute) Chest pain (Acute 01/23/13) Unstable angina (Acute 01/23/13) Diabetes mellitus type 2, controlled (Chronic) Hypertension (Chronic) Hyperlipidemia (Chronic) Medical History (Updated 07/19/24 @ 12:34 by Yudith Agudelo NP) CAD (coronary artery disease), [place] coronary artery Social History Smoking/Tobacco Use Status: Former Tobacco Use Smoking risk assessment performed?: Yes Alcohol Intake: never Drug use: Never Substance use type: does not use Housing: house Do you feel safe in your relationship?: Yes
--- NOTE | 2024-07-19 10:16 | NUR.NOTE ---
Nursing Note: 0828 patient noted to have elevated temperature 39.1, increased heart rate 123bpm, decreased oxygen saturation 87% on room air, resolved with 2 liters via NC to 95%. PRN APAP given, provider updated on patient status, see new orders
[2024-07-19] MEDS: cefTRIAXone 2 GM/50 ML BAG IVPB (10:35)
[2024-07-19] MEDS: Normal Saline Flush 10 ML SYR IVP ×2 (10:37→20:04)
--- NOTE | 2024-07-19 11:17 | PHA.REVIEW2 ---
Pharmacy Admission Review Admission Clinical Review Admission Pharmacy Review: Severe sepsis (Acute) On deep vein thrombosis (DVT) prophylaxis (Acute) HONG (acute kidney injury) (Acute) Acute hypoxic respiratory failure (Acute) Pneumonia (Acute) Acute hypotension (Acute) Hypomagnesemia (Acute) amoxicillin (Amoxicillin) Allergy (Mild, Unverified 10/02/22 14:05) Itching Resuscitation Status Full Code Height 5 ft 9 in Weight 79.379 kg Pharmacy Admission Review Renal Dosing Renal Dosing: BUN 16 mg/dL (7-18) 07/19/24 06:19 Creatinine 1.6 mg/dL (0.70-1.30) H 07/19/24 06:19 Medications needing adjustments: Reviewed (CrCl 44.1 mL/min, SCr increased from 1.5) List of meds needing interventions: Current medications are okay Anticoagulation Anticoagulation: Hgb 16.4 g/dL (13.5-17.5) 07/19/24 06:19 Hct 52.6 % (40.0-50.0) H 07/19/24 06:19 Plt Count 74 10^3/uL (130-400) L 07/19/24 06:19 INR 1.1 (0.9-1.1) 07/18/24 13:47 Creatinine 1.6 mg/dL (0.70-1.30) H 07/19/24 06:19 DVT Prophylaxis: Reviewed Medications: Enoxaparin (40mg daily) Relevant Labs Relevant Labs: Sodium 141 mmol/L (136-145) 07/19/24 06:19 Potassium 4.0 mmol/L (3.5-5.1) 07/19/24 06:19 Chloride 103 mmol/L (98-107) 07/19/24 06:19 Magnesium 2.0 mg/dL (1.8-2.4) 07/19/24 06:19 Electrolytes, C-Reactive P, ESR: Reviewed DM Control DM Control: Glucose 128 mg/dL (74-106) H 07/19/24 06:19 Finger Stick Blood Glucose 187 0912 Finger Stick Blood Glucose 187 0737 Finger Stick Blood Glucose 187 0737 DM Control: Intervened Insulin Dosing, Diabetic Medication: Has order for SS insulin and glargine 18 units daily. Order was originally put in as Lantus vial - changed to pen and changed timing from DAILY to HS, nurse confirmed with patient that they take at bedtime. Also has order for Jardiance 25mg daily. Cardiac Review Cardiac Review: Troponin I 16 ng/L <0r=76 07/18/24 14:46 Blood Pressure : Heart Rate 117/61 : 97 0952 Blood Pressure : Heart Rate 112/52 : 115 0916 Blood Pressure : Heart Rate 133/59 : 123 0804 Blood Pressure : Heart Rate 120/44 : 82 0733 Blood Pressure : Heart Rate 105/57 : 110 0327 BP, HR, EF%: Reviewed QTc Review QTc: Reviewed (476 from 07/18/24) IV to PO Switch IV Medications: Reviewed (azithromycin and ceftriaxone) Home Meds Home Med List reviewed: Intervened Relevent Home Meds Not ordered & why?: diclofenac gel (PRN), Flonase, HCTZ (listed as not taking on home med list), ipratropium nasal spray, losartan (listed as not taking on home med list), metoprolol (listed as not taking on home med list), nitroglycerin (PRN) and Ozempic (weekly) Per nurse patient does not know what medications he takes at home. He was able to tell us that he takes his glargine at night but otherwise is not sure what he is taking (nurse unable to call as patient does not know her number). Keppra order put in as once SOHEILA as this was how it was put on home med list. Provider aware and looking into it. Patient unsure if he takes it or how he takes it at home. Order pending for testosterone patch. Asked nurse to see if patient currently had one on, and if he is using it then it will have to be brought in from home (non-formulary) - waiting to hear back Current Meds Current Medication Order Review: Intervened Comments: Changed Lantus order from vial to pen per pharmacy protocol Pharmacy Antibiotic Review Relevant Labs: Relevant Labs 07/18/24 14:46 Procalcitonin 0.46 WBC 5.83 10^3/uL (4.4-10.8) 07/19/24 06:19 Procalcitonin 0.46 ng/mL 07/18/24 14:46 Temperature 37.5 C 0952 Temperature 39.1 C 0821 Temperature 39.1 C 0804 Temperature 38.9 C 0733 Temperature 38.1 C 0616 Temperature 37.7 C 0327 Temperature 38.6 C 0135 Temperature 38.6 C 0132 Pharmacy Antibiotic Activity: C/S review and Reviewed, no change Comments: Patient is on azithromycin and ceftriaxone, day 1, for severe sepsis/CAP. Blood cultures pending.
--- NOTE | 2024-07-19 11:45 | W.PM.PROGNOT ---
Date of Service Date of service: 07/19/24 Time of Service: 11:45 Assessment and Plan Assessment and plan (1) Severe sepsis: Status: Resolved Assessment and plan: hemodynamically stable Blood C&S pending continue antibiotics stop IV fluids (2) Acute hypoxic respiratory failure: Status: Acute Assessment and plan: not on home oxygen wean as able (3) Pneumonia: Status: Acute Assessment and plan: On Ceftriaxone and azithromycin IV day 2/5 continue pulmonary toileting mucinex BID (4) Acute hypotension: Status: Acute Assessment and plan: resolved not on home HTN meds continue to monitor (5) Hyperlipidemia: Status: Chronic Assessment and plan: on home statin (6) Diabetes mellitus type 2, controlled: Status: Chronic Assessment and plan: Gluc & HS Home dose lantus and SSI coverage (7) HONG (acute kidney injury): Status: Acute Assessment and plan: in setting of sepsis with hypotension received IV fluids avoid nephrotoxic drugs, renal dosing as needed. (8) Gout: Status: Chronic Assessment and plan: On allopurinol (9) Hypomagnesemia: Status: Acute Assessment and plan: Magnesium supplementation mag in AM (10) On deep vein thrombosis (DVT) prophylaxis: Status: Acute Assessment and plan: LMWH Discussed with Dr. Campos Subjective Subjective Patient reports: tolerating liquids well, shortness of breath and fever; denies tolerating a regular diet (poor appetite) Exam Narrative Exam Narrative: Frail chronically ill-appearing male older than stated age head is atraumatic eyes nonicteric noninjected oral mucosas slightly dry neck full range of motion cardiovascular regular rate and rhythm respirations even unlabored dim in the bases abdomen benign moves all extremities neurologic awake alert oriented no focal deficits psychiatric appropriate mood and affect Objective Last Vital Signs Temp 37.5 C 07/19/24 09:52 Pulse 97 H 07/19/24 09:52 Resp 20 07/19/24 09:52 BP 117/61 07/19/24 09:52 Pulse Ox 92 07/19/24 09:52 Laboratory Results - last 24 hr 07/18/24 07/18/24 07/18/24 13:47 14:26 14:46 WBC 7.27 RBC 5.72 Hgb 17.2 Hct 53.1 H MCV 93 MCH 30.1 MCHC 32.4 RDW 14.3 H Plt Count 114 L MPV 11.5 H Immature Gran % 0.3 Neutrophils % 73.4 Lymphocytes % 16.8 Monocytes % 8.8 Eosinophils % 0.3 Basophils % 0.4 Nucleated RBC % 0.0 Absolute Neutrophils 5.34 Absolute Lymphocytes 1.22 Absolute Monocytes 0.64 Absolute Eosinophils 0.02 Absolute Basophils 0.03 PT 11.4 H INR 1.1 APTT 25.2 VBG pH 7.40 VBG pCO2 43 VBG pO2 52 VBG HCO3 27 VBG Total CO2 23 L VBG O2 Saturation 88 VBG Base Excess 2 Sodium 140 Potassium 4.1 Chloride 102 Carbon Dioxide 28.8 Anion Gap 9.2 BUN 16 Creatinine 1.5 H Est GFR (CKD-EPI 2020) 47.95 Glucose 180 H Calcium 8.9 Magnesium 1.7 L Total Bilirubin 1.3 H AST 20 ALT 23 Alkaline Phosphatase 92 Troponin I 17 16 Total Protein 6.8 Albumin 3.8 Procalcitonin 0.46 TSH 1.11 Urine Color Yellow Urine Clarity Clear Urine pH 5.5 Ur Specific [place] 1.015 Urine Protein 100 H Urine Ketones 15 H Urine Blood Trace-intact H Urine Nitrite Negative Urine Bilirubin Small H Urine Urobilinogen 0.2 Ur Leukocyte Esterase Negative Urine RBC 0-2 Urine WBC 0-2 Ur Epithelial Cells Rare Urine Crystals Negative Urine Bacteria Rare Urine Casts Negative Urine Mucus Negative Ur Culture Indicated? No Urine Glucose 500 H COVID-19 Source SARS-CoV-2 (PCR) Influenza Type A (PCR) Influenza Type B (PCR) RSV (PCR) 07/18/24 07/18/24 07/19/24 16:48 17:51 06:19 WBC 5.83 RBC 5.49 Hgb 16.4 Hct 52.6 H MCV 96 H MCH 29.9 MCHC 31.2 L RDW 14.5 H Plt Count 74 L MPV 11.5 H Immature Gran % 0.3 Neutrophils % 64.6 Lymphocytes % 26.8 Monocytes % 5.0 Eosinophils % 2.6 Basophils % 0.7 Nucleated RBC % 0.0 Absolute Neutrophils 3.77 Absolute Lymphocytes 1.56 Absolute Monocytes 0.29 Absolute Eosinophils 0.15 Absolute Basophils 0.04 PT INR APTT VBG pH VBG pCO2 VBG pO2 VBG HCO3 VBG Total CO2 VBG O2 Saturation VBG Base Excess Sodium 141 Potassium 4.0 Chloride 103 Carbon Dioxide 29.0 Anion Gap 9.0 BUN 16 Creatinine 1.6 H Est GFR (CKD-EPI 2020) 44.38 Glucose 128 H Calcium 8.6 Magnesium 2.0 Total Bilirubin AST ALT Alkaline Phosphatase Troponin I Cancelled Total Protein Albumin Procalcitonin TSH Urine Color Urine Clarity Urine pH Ur Specific [place] Urine Protein Urine Ketones Urine Blood Urine Nitrite Urine Bilirubin Urine Urobilinogen Ur Leukocyte Esterase Urine RBC Urine WBC Ur Epithelial Cells Urine Crystals Urine Bacteria Urine Casts Urine Mucus Ur Culture Indicated? Urine Glucose COVID-19 Source Nasopharynx SARS-CoV-2 (PCR) Negative Influenza Type A (PCR) Negative Influenza Type B (PCR) Negative RSV (PCR) Negative Time Spent with Patient Time Spent with Patient: 35-49 minutes Time was spent: preparing to see the patient(eg.review tests), obtaining and/or reviewing separately otained hiistory, ordering medications,tests, procedures, indepentently interpreting results and counseling the patient
[2024-07-19] MEDS: DOXYCYCLINE 100 MG in Normal Saline 100 ML IVPB (16:20)
[2024-07-19] MEDS: Atorvastatin 40 MG TAB 80 MG PO (20:02)
[2024-07-19] MEDS: Insulin Glargine 300 UNITS/3 ML PEN 18 UNITS SC (20:07)
[2024-07-19] MEDS: Ibuprofen 600 MG TAB PO (20:40)
[2024-07-20] VITALS (9 sets, daily range): BP systolic 97–129; BP diastolic 51–76; PULSE 72–83; RESP 2–20; TEMP 36–36.6; O2SAT 91–98
[2024-07-20] MEDS: DOXYCYCLINE 100 MG in Normal Saline 100 ML IVPB ×2 (03:20→16:30)
[2024-07-20] MEDS: Albuterol/Ipratropium 3 ML UPD VIAL UPD (05:56)
[2024-07-20] MEDS: Lactated Ringers 1,000 ML 100 ML IV ×2 (06:33→19:56)
[2024-07-20 06:48] LABS: Abs Immature Grans 0.02 10^3/uL (0.0-0.06); Absolute Basophil Count 0.04 10^3/uL (0.0-0.2); Absolute Eosinophil Count 0.02 10^3/uL (0.0-0.7); Absolute Monocyte Count 0.56 10^3/uL (0.1-0.8); Absolute Neutrophil Count 2.89 10^3/uL (1.2-6.7); Basophils % 0.8 %; Eosinophils % 0.4 %; HCT 49.5 % (40.0-50.0); HGB 15.9 g/dL (13.5-17.5); Immature Grans % 0.4 %; Lymphocytes % 29.8 %; MCH 30.1 pg (27.0-33.0); MCHC 32.1 % (32.0-36.0); MCV 94 fL (80-95); Monocytes % 11.1 %; Neutrophils % 57.5 %; RBC 5.29 10^6/uL (4.36-5.78); RDW 14.5 % (11.8-14.1); WBC 5.03 10^3/uL (4.4-10.8)
[2024-07-20 07:21] LABS: Diff Comment PLT Morph Reviewed; Platelet Count 47 10^3/uL (130-400); RBC Morphology Normal
[2024-07-20 07:27] LABS: ALT 100 U/L (16-63); AST 124 U/L (15-37); Albumin 2.7 g/dL (3.4-5.0); Alkaline Phosphatase 104 U/L (46-116); BUN 22 mg/dL (7-18); Bilirubin, Total 1.2 mg/dL (0.2-1.0); CREATININE 1.3 mg/dL (0.70-1.30); Calcium 8.5 mg/dL (8.5-10.1); Chloride 105 mmol/L (98-107); Estimated GFR 56.93 (mL/min/1.73m2); Glucose 140 mg/dL (74-106); Potassium 4.7 mmol/L (3.5-5.1); Sodium 141 mmol/L (136-145); Total Protein 5.9 g/dL (6.4-8.2)
[2024-07-20] MEDS: Cyanocobalamin 500 MCG TAB 1000 MCG PO (08:59)
[2024-07-20] MEDS: Clopidogrel 75 MG TAB PO (09:00)
[2024-07-20] MEDS: Cetirizine 10 MG TAB PO (09:00)
[2024-07-20] MEDS: Allopurinol 300 MG TAB PO (09:01)
[2024-07-20] MEDS: Metoprolol 50 MG TAB PO ×2 (09:01→19:51)
--- NOTE | 2024-07-20 09:38 | PGE_ITS ---
Date of Service Date of service: 07/20/24 Time of Service: 09:40 Assessment and Plan Assessment and plan (1) Severe sepsis: Status: Resolved Assessment and plan: hemodynamically stable Blood C&S pending continue antibiotics stop IV fluids (2) Acute hypoxic respiratory failure: Status: Acute Assessment and plan: not on home oxygen wean as able (3) Pneumonia: Status: Acute Assessment and plan: On Ceftriaxone and azithromycin IV day 2/5 continue pulmonary toileting mucinex BID Chest XR: Lungs: Mild patchy interstitial prominence of the left lower lung. Questionable nodular structure overlying the confluence of the anterior left 6th and posterior left 8th ribs. Needs outpatient f/u (4) Acute hypotension: Status: Acute Assessment and plan: resolved not on home HTN meds continue to monitor (5) Hyperlipidemia: Status: Chronic Assessment and plan: on home statin (6) Diabetes mellitus type 2, controlled: Status: Chronic Assessment and plan: Glucose range 119-185 Refusing SSI for gluc 141-180 Gluc & HS Ongoing home dose lantus and continue to offer SSI coverage Nutrition consult: reporting taking lantus weekly and not sure about the other Rx he takes weekly( semiglutide) (7) HONG (acute kidney injury): Status: Acute Assessment and plan: IVF completed - still febrile < 24 hours ago in setting of sepsis with hypotension Continue to avoid nephrotoxic drugs, renal dosing as needed. Cr close to baseline (8) Gout: Status: Chronic Assessment and plan: On home dose allopurinol (9) Hypomagnesemia: Status: Acute Assessment and plan: Resolved Magnesium supplementation completed mag in AM (10) On deep vein thrombosis (DVT) prophylaxis: Status: Acute Assessment and plan: Was on LMWH stopped re: thrombocytopenia at [address] Campos Subjective Subjective Patient reports: feels better, tolerating liquids well, tolerating a regular diet, voiding w/o difficulty, bowel movement, fever and other (weakness); denies diarrhea, nausea, vomiting or shortness of breath Exam Narrative Exam Narrative: Constitutional The patient is without acute distress Neuro:alert and oriented X4 .No neurological focal deficit, Resp:Clear lung bilaterally. Left lower lung diminished Cardio: regular rhythm, S1, S2, no murmur GI: Abdomen is not distended, soft and non tender, bowel sounds are present Integumentary: No skin lesions or rash to exposed skin Extremities: moves all 4 ext Psych: RASS 0, congruent mood and normal affect. Objective Last Vital Signs Temp 36.4 C L 07/20/24 07:31 Pulse 77 07/20/24 07:31 Resp 16 07/20/24 07:31 BP 105/51 L 07/20/24 07:31 Pulse Ox 93 07/20/24 07:31 Laboratory Results - last 24 hr 07/20/24 06:35 WBC 5.03 RBC 5.29 Hgb 15.9 Hct 49.5 MCV 94 MCH 30.1 MCHC 32.1 RDW 14.5 H Plt Count 47 L MPV 12.0 H Immature Gran % 0.4 Neutrophils % 57.5 Lymphocytes % 29.8 Monocytes % 11.1 Eosinophils % 0.4 Basophils % 0.8 Nucleated RBC % 0.0 Absolute Neutrophils 2.89 Absolute Lymphocytes 1.50 Absolute Monocytes 0.56 Absolute Eosinophils 0.02 Absolute Basophils 0.04 RBC Morphology Normal Sodium 141 Potassium 4.7 Chloride 105 Carbon Dioxide 30.0 Anion Gap 6.0 BUN 22 H Creatinine 1.3 Est GFR (CKD-EPI 2020) 56.93 Glucose 140 H Calcium 8.5 Total Bilirubin 1.2 H AST 124 H ALT 100 H Alkaline Phosphatase 104 Total Protein 5.9 L Albumin 2.7 L Time Spent with Patient Time Spent with Patient: >50 minutes Time was spent: preparing to see the patient(eg.review tests), obtaining and/or reviewing separately otained hiistory, ordering medications,tests, procedures, referring, communicating with other health patient care provider, indepentently interpreting results, counseling the patient and care coordination
[2024-07-20] MEDS: Empaglifozin 25 MG TAB 12.5 MG PO (10:19)
[2024-07-20] MEDS: levETIRAcetam 250 MG TAB 750 MG PO ×2 (10:21→19:50)
--- NOTE | 2024-07-20 10:30 | PT.INIE ---
PT Notes Visit Reasons: Severe sspsis, LL CAP, HONG Physical Therapy Inpatient Initial Evaluation Date:07/20/2024 Referring Doctor: Riddhi Grimm NP PT Orders: PT CONSULT: Safety Consult for D/C; Eval for assistive device Precautions: telemetry, Standard Patient Profile/Admitting Diagnosis: Ivan is a 78 yo male admitted with Sepsis, pneumonia and hypoxic respiratory failure.Pt referred to PT for safety consult. PMHX: Severe sepsis (Acute) Gout (Chronic) On deep vein thrombosis (DVT) prophylaxis (Acute) HONG (acute kidney injury) (Acute) Acute hypoxic respiratory failure (Acute) Hypoxia (Acute) Pneumonia (Acute) Acute hypotension (Acute) Hypomagnesemia (Acute) Chest pain (Acute 01/23/13) Unstable angina (Acute 01/23/13) Diabetes mellitus type 2, controlled (Chronic) Hypertension (Chronic) Hyperlipidemia (Chronic) Medical History (Updated 07/18/24 @ 18:22 by Riddhi Grimm APRN) CAD (coronary artery disease), [place] coronary artery Social History/Home Situation: Pt reised with in 2 story home . Pt with FOS with 1 rail to his bed and BR. He has a bathroom on the first floor. . Pt amb with a SPC at times . Pt drives. Pt independent ADL prior to illness. Equipment Owned/DME: SPC , Pt to be issued FWW for discharge Subjective: Pt reports he is feeling better but weak. Objective: [] General Observation:thin male semireclined in bed with nasal cannula in place but oxygen off. telemetry in place Mental Status: A +Ox4 cooperative , able to follow all instructions, agreeable to participate in evaluation Pain: denies Vitals: pre 95% RA post: 91% RA ROM: [] BUE: WNL BLE: WNL Strength: [] BUE: grossly 4/5 BLE: Hip flexion: 3+/5; hip abduction: 3- /5; hip extension: 3- /5; knee extension: 3+ /5; knee flexion: 3-/5 ankle DF: 3 /5 ; ankle PF: 3/5 Sensation: intact Bed Mobility/Transfers: [] Supine to sit CGA with HOB at 36 degrees. Sit to stand CGA cues for hands Stand to sit CGA cues for hands Bed to chair CGA cues for safe approach with FWW Gait: amb with FWW 25 feet instability at hips noted with small steps requiring Levon / CGA for stability Balance: [] Static Sitting:Normal Dynamic Sitting: Fair + Static Standing: Fair with BUE support Dynamic Standing: Fair - with BUE support Special Tests: [] Mobility Limitations Standardized Measure [] [facility] 6 clicks Basic Mobility Inpatient Short Form: [] Raw Score:17 CMS Score: 50.57% Informed Consent/Education: Patient instructed in purpose of PT consult. Assessment: Patient is a 78yo male who presents with clinical signs and symptoms consistent with current/admitting diagnoses that have resulted to mobility limitations, gait instability, generalized weakness, and impairment of motor control as demonstrated by the following impairment level findings: 1. Decreased strength to BUE/BLE major muscle groups 2. Impaired standing balance 3. gait instability 4. Impaired functional activity tolerance Impairments are contributing to the following functional limitations: 1. Inability to safely ambulate without assistive device 2. Increase completion time for mobility ADL performance 3. Increased fall risk 4. decline in transfer skills 5. difficulty performing stairs safely Patient is assessed as a moderate complexity based on the following: History: 78-year-old male with impairment level findings, functional limitations, and past medical history as indicated above Examination: Demonstrable impairment in strength, balance, and mobility level with underlying impairments and functional limitations as documented above Presentation: stable/evolving Decision Making:moderate Goals: 1. independent bed mobility 2. independent transfers with FWW 3. SBA ambulation with FWW 200 feet 4. supervision 5 stairs with rail to safely enter and exit home Plan of Care/Treatment Plan: 1-2x/day, 7 days/week x 1 week. Plan of care has been reviewed with the CLINICAL STAFF PHARMACIST providing the service under Physical Therapy direction. Initiate Physical Therapy intervention for strengthening, bed mobility, transfers, gait, stairs, balance training, use of assistive device. DISCHARGE RECOMMENDATIONS: Patient will benefit from home health PT services in order to progress mobility level using least restrictive assistive ambulatory device, assess home safety, identify additional equipment needs, and establish a functional maintenance program that will increase ability of patient to remain at home. TREATMENT CODE/TIME:01939, 59985/ [id number] Thank you for the opportunity to participate in the care of this patient. Shelby George PT [facility]
[2024-07-20] MEDS: cefTRIAXone 2 GM/50 ML BAG IVPB (10:53)
[2024-07-20] MEDS: Normal Saline Flush 10 ML SYR IVP ×2 (11:05→19:52)
[2024-07-20] MEDS: Ibuprofen 600 MG TAB PO (11:06)
--- NOTE | 2024-07-20 11:24 | NUR.NOTE ---
Nursing Note: Consulted with Pharmacy regarding unknown compatibility of ceftriaxone and LR (which is currently infusing). Per Pharmacy, appropriate to stop LR and give abx then restart LR.
[2024-07-20 11:47] LABS: Lyme Ab w Rflx to Lyme Confirm Negative (Negative)
--- NOTE | 2024-07-20 12:35 | CMPROGNOTE_ITS ---
Care Management Progress Note Progress Note Text Progress Note Text: Ivan was sitting up in the bedside chair when CM met with him today. He looked well, and was very pleasant. He remembered CM from yesterday. Today Ivan asked for information regarding stair lifts, as he has 10-12 steps to reach his bedroom. Referral was placed, with his permission, to [facility] to assist with this. Referral was sent by CM and also requested terminal gauger supervisor planning and increased community support. Ivan is also in agreement to new HH RN and PT. Referral will be placed on day of discharge. Discharge Potential Discharge Needs: PCP F/U Appt Anticipated Barriers to Discharge: None Identified Patient/Family Education Needs: Review discharge instructions, discuss Ask Me Three Transportation: Private vehicle Plan: Anticipate that Ivan will discharge home in the next day or 2 with new services of HC SN and PT. He will f/u with his PCP and continue per his plan of care. CM will continue to follow and update the plan as needed. Social Determinants of Health Screening Social Determinants of health last assessed in clinic: 07/20/24 Will the Patient Participate in the Screening?: Yes Do you worry about having a steady place to live?: no Problems where you live: no known problems In the past 12 months, have you had to go without electric, gas, oil or water in your home?: no 1. Within the past 12 months, we worried whether our food would run out before we got money to buy more.: Don't know/refused 2. Within the past 12 months, the food we bought just didn't last and we didn't have money to get more.: Don't know/refused Has lack of transportation kept you from medical appointments or from doing things needed for daily living?: no Has anyone in your life made you feel unsafe or unsupported?: no How hard is it for you to pay for the very basics like food, housing, medical care, and heating? Would you say it is:: Not hard at all Do you want help finding or keeping work or a job?: I do not need or want help If for any reason you need help with day-to-day activities such as bathing, preparing meals, shopping, managing finances, etc., do you get the help you need?: I don?t need any help How often do you feel lonely or isolated from those around you?: Never Do you speak a language other than Mexican at home?: No Does the patient want assistance with any of the above?: No Anticipated HH Services Anticipated HH Services at Discharge [facility] Needed, PT and RN Anticipated Date of Discharge: 07/21/24. Following Provider: Kulwant Escobedo.
--- NOTE | 2024-07-20 13:49 | PTTR_ITS ---
PT Notes Visit Reasons: Severe sspsis, LL CAP, HONG Inpatient Physical Therapy Treatment Note [facility] Date: 07/20/2024 PRECAUTIONS:fall risk IV access R Hand SUBJECTIVE: Pt reports he feels better. He states he talked to CM regarding stair lift and she was going to refer him to [facility] for more information. OBJECTIVE:Pt presented seated in chair IV infusing and daughter visiting? PAIN: denies VITALS: ?Monitored via telemetry sats 95% pre and post activity on RA Therapeutic Activities ([id number][]): Direct one-on-one instruction in dynamic activities to improve functional performance. ? BED MOBILITY/TRANSFERS? Rolling L/R: independent Supine-sit: independent ? Sit-supine: independent? Sit-stand:SBA? Stand-sit: SBA ? Bed-Chair:SBA with FWW? Chair-bed:SBA with FWW Provided skilled cues and instruction on performance and technique throughout. Ambulation Facilitated safe and correct performance of level surface ambulation covering a distance of 25 feet x 2 and 120 feet using use front wheeled walker with contact-guard assist and wheelchair follow for safety. Did not report of any i ncreased pain. Denied headache, chest pain, and lightheadedness throughout activity. Minimal verbal cueing provided for AD management, directional changes, and posture. ? Neuromuscular Re-education ([id number][]): Activities that facilitate re-education of movement balance, posture, coordination, and proprioception or kinesthetic sense, requiring skilled tactile and verbal cues ? Exercises/techniques: ? stand with narrow DEON / feet together x 30 sec x 2 half step feet together x 30 sec x2 R/L w/1UE support tandem with 1UE support R/L 30sec x 2 - Dynamic reaching with 1 UE support knee to shoulder height with CGA ASSESSMENT:? tolerates session well. Pt with one slight LOB posteriorly while walking when he lifted head and looked to the right. . Pt required cues for head up . Pt performed all tasks without shoes( wearing non skid socks.) [facility] . PLAN: 1-2x/day, 7 days/week x 1 week. Plan of care has been reviewed with the MOLD FILLING OPERATOR providing the service under Physical Therapy direction. Initiate Physical Therapy intervention for strengthening, bed mobility, transfers, gait, stairs, balance training, use of assistive device. TREATMENT CODE/TIME: 93818, 80756/ 2013-2334 DISCHARGE RECOMMENDATION: Home with HHPT and use of FWW
[2024-07-20] MEDS: Atorvastatin 40 MG TAB 80 MG PO (19:51)
[2024-07-21 03:28] VITALS: BP 124/82; PULSE 77; RESP 20; TEMP 36.4; O2SAT 96
[2024-07-21] MEDS: DOXYCYCLINE 100 MG in Normal Saline 100 ML IVPB (03:44)
[2024-07-21] MEDS: Lactated Ringers 1,000 ML 100 ML IV (07:33)
[2024-07-21 08:00] VITALS: BP 137/61; TEMP 36.7; O2SAT 92
[2024-07-21 08:06] LABS: Abs Immature Grans 0.01 10^3/uL (0.0-0.06); Absolute Basophil Count 0.03 10^3/uL (0.0-0.2); Absolute Eosinophil Count 0.09 10^3/uL (0.0-0.7); Absolute Lymphocyte Count 1.09 10^3/uL (1.2-3.4); Absolute Neutrophil Count 2.77 10^3/uL (1.2-6.7); Basophils % 0.7 %; HCT 49.8 % (40.0-50.0); HGB 15.8 g/dL (13.5-17.5); Immature Grans % 0.2 %; Lymphocytes % 24.3 %; MCH 29.5 pg (27.0-33.0); MCHC 31.7 % (32.0-36.0); MCV 93 fL (80-95); Monocytes % 11.1 %; Neutrophils % 61.7 %; RBC 5.36 10^6/uL (4.36-5.78); RDW 14.4 % (11.8-14.1); RDW-SD 49.2 fL; WBC 4.49 10^3/uL (4.4-10.8)
[2024-07-21 08:13] LABS: Anion Gap 4.7 mmol/L (3-11); BUN 28 mg/dL (7-18); CO2 33.3 mmol/L (21.0-32.0); CREATININE 1.1 mg/dL (0.70-1.30); Calcium 8.7 mg/dL (8.5-10.1); Chloride 104 mmol/L (98-107); Estimated GFR 69.57 (mL/min/1.73m2); Glucose 115 mg/dL (74-106); Magnesium 1.7 mg/dL (1.8-2.4); Potassium 3.7 mmol/L (3.5-5.1); Sodium 142 mmol/L (136-145)
[2024-07-21 08:17] LABS: Anaplasma phagocytophilum Positive (Negative); B. miyamotoi PCR Negative (Negative); Babesia divergens/MO-1 Negative (Negative); Babesia duncani Negative (Negative); Babesia microti Negative (Negative); Ehrlichia chaffeensis Negative (Negative); Ehrlichia ewingii/canis Negative (Negative); Ehrlichia muris eauclairensis Negative (Negative)
[2024-07-21] MEDS: Cyanocobalamin 500 MCG TAB 1000 MCG PO (08:37)
[2024-07-21] MEDS: Cetirizine 10 MG TAB PO (08:37)
[2024-07-21] MEDS: Metoprolol 50 MG TAB PO (08:37)
[2024-07-21] MEDS: Allopurinol 300 MG TAB PO (08:37)
[2024-07-21] MEDS: Clopidogrel 75 MG TAB PO (08:37)
[2024-07-21] MEDS: levETIRAcetam 250 MG TAB 750 MG PO (08:38)
[2024-07-21] MEDS: Empaglifozin 25 MG TAB 12.5 MG PO (08:39)
--- NOTE | 2024-07-21 09:16 | DM INPTCON_ITS ---
Date of service: 07/21/24 Time of Service: 09:45 Diabetes Inpatient Consult Reason for Visit: received consult request regarding diabetes ed/mgt DESCRIPTION/ASSESSMENT: Shukri is 78yo male who lives at home with his . He is on day 3 of admission, being treated for severe sepsis, acute resp failure/PNA, acute hypotension, HONG, low mag+ and DVT proph. Hx of gout, diabetes, hyperlipidemia. Pt ordered for CHO consistent and heart healthy diet with normal consistencies. He requests regular sugar for his coffee and insists on regular memo edgar. He shares in our conversation today I probably shouldn't tell you - but me and my have dessert every night around 7pm - little debbies snack cake or ice cream or something else. He checks his glucose at home - states about 4 times per day in the month of June but may vary. Denies glucose getting over 180 - maybe less than 10 times. Denies frequent low's. Last A1C was in 2016 and in the 6's. In our interview he indicates that he eats what he likes and based on interview would initially assess his regular diet as fiber deficient and excessive in added sugar and SFA's. Both nursing and hospitalist raise concerned about his understanding of his injectable diabetes meds - ordered for 18u Lantus HS and is up to .5 of semaglutide weekly per Shukri's responses. He did, at first tell me everyone has been asking him about his meds and that he takes 18units every Saturday and the .5mg daily. After discussing more he clarified and states he does take 18u each night but it is not called Lantus -it's called something else but could not remember (wonder if different brand of glargine?) and insisted he takes the one that is .5mg once weekly and just increased this dose. He states [facility] is [facility] and [facility] and [facility] met with their senior health educator. He confirms he takes jardiance orally - half a pill daily. I affirmed he is doing a good job with checking his glucose at home. Gave him my card to call and have he and come in for outpatient guidance with diet - he seemed somewhat interested. INTERVENTION: Would recommend recent A1C. After discussion it seems shukri is following his med orders for diabetes mgt but seems confused on names (insists nightly insulin is not Lantus) PLAN: pt has my contact info to reach out and schedule outpatient appt after discharge. Will monitor with anticipated discharge today Time Spent in Nutritional Counseling and Treatment: 20 min
[2024-07-21 09:54] LABS: Platelet Count 52 10^3/uL (130-400)
[2024-07-21 09:55] LABS: Diff Comment PLT Morph Reviewed; RBC Morphology Normal
[2024-07-21] MEDS: Magnesium Oxide 400 MG TAB 800 MG PO (10:38)
--- NOTE | 2024-07-21 10:44 | DSE_ITS ---
Date of service: 07/21/24 Time of Service: 10:44 DS: Diagnosis Discharge Diagnosis (1) Severe sepsis: Status: Resolved (2) Acute hypoxic respiratory failure: Status: Acute (3) Pneumonia: Status: Acute (4) Acute hypotension: Status: Acute (5) Hyperlipidemia: Status: Chronic (6) Diabetes mellitus type 2, controlled: Status: Chronic (7) HONG (acute kidney injury): Status: Acute (8) Gout: Status: Chronic (9) Hypomagnesemia: Status: Acute (10) On deep vein thrombosis (DVT) prophylaxis: Status: Acute Discharge Plan Disposition Patient Disposition: Home W/Home Health Services Condition: Improving Discharge Details Reason For Visit: Severe sspsis, LL CAP, HONG Admit Date/Time: 07/18/24 17:25 Admit Provider: Terrell Campos Attending Provider: Terrell Campos Primary Care Provider: Kulwant Escobedo Hospital Course Hospital Course: This [age] years old male patient please mail patient medical history hypertension, diabetes, stroke presented to the ED for evaluation of dizziness chills and subjective fevers. Workup in the ED was positive for chest x-ray revealing increased markings pain suspicious for pneumonia. Blood work was unremarkable except for creatinine of 53 and creatinine of 1.5 with baseline of 1.0. The patient presented with hypotension, tachypnea with respiratory rate 22 and tachycardia with heart rate in the 90s; also hypoxic at 88%on ambulation requiring oxygen cannula with improvement at 94%. The patient was treated with IV fluid, ceftriaxone and IV azithromycin and was admitted to the medical surgical floor for hypoxic respiratory failure, severe sepsis, left lower lobe pneumonia and HONG. D/t now confirmed anaplasmosis, azithromycin was stopped and doxycylcline was initiated.Blood cultures were negative. The patient will be discharged home with home health nursing and physical therapy on cefpodoxime, doxycycline and a short course of probiotics.The patient was hemodynamically stable, on room air, and afebrile for over 24 hours. Follow-up with PCP within 7 days of discharge, please. Discussed with Dr. Albright Home Meds and New Rx's Prescriptions: New doxycycline hyclate 100 mg capsule 100 mg PO BID Qty: 17 0RF cefpodoxime 200 mg tablet 200 mg PO BID Qty: 8 0RF Rx Instructions: must administer with a meal/food Bio-K plus 50 billion cell capsule,delayed release(DR/EC) 1 cap PO DAILY Qty: 10 0RF Rx Instructions: Take 3 hours apart from antibiotics Continued nitroglycerin [Nitrostat] 0.4 MG tablet, sublingual 0.4 mg PO PRN PRN Patient Comments: as needed acetaminophen 325 mg Tablet 500 mg PO 3XD PRN (Reason: Pain) Patient Comments: takes as needed cetirizine 10 mg Tablet 10 mg PO HS Patient Comments: takes in night allopurinol 300 mg Tablet 300 mg PO 1XD empagliflozin 25 mg Tablet 12.5 mg PO DAILY Patient Comments: prescribed 12.5 mg daily in am cyanocobalamin (vitamin B-12) 1,000 mcg Capsule 1,000 mcg PO HS semaglutide 1 mg/dose (2 mg/1.5 mL) Pen Injector 0.25 mg SUBCUT QWEEK Patient Comments: taking weekly on Tuesdays atorvastatin 80 mg Tablet 80 mg PO DAILY clopidogrel 75 mg Tablet 75 mg PO DAILY Qty: 30 0RF levetiracetam [Keppra] 500 mg tablet 750 mg PO BID Patient Comments: 750 mg PO BID for prevention of seizures insulin glargine [Lantus U-100 Insulin] 100 unit/mL solution 18 unit subcut HS Patient Comments: takes at night Discharge Instructions Referrals: Kulwant Escobedo [Primary Care Provider] - (Follow-up within 7 days of discharge please.) Activity:: Activity as Tolerated Equipment/Supplies:: No Equipment Needed Diet:: heart healthy diabetic Discharge Orders Discharge Orders: Discharge Order (Routine); Ordered 07/21/24 Ordered By: Riddhi Grimm DS: Summary Time Spent with Patient providing and/or coordinating discharge services: Greater than 30 minutes Status at Discharge Functional status at discharge: independent ambulation Overall status at discharge: patient is progressing back to baseline Mental Status: mental status grossly normal Speech and Movement: speech and movement normal Mood: congruent mood Affect: normal affect Quality:SDOH Health Related Social Needs: No Data to Display Exam Narrative Exam Narrative: Constitutional 78 years old male patient looking older than stated age, without acute distress Neuro:alert and oriented X4 .No neurological focal deficit, Resp: Left lower lung is diminished, otherwise clear breath sounds Cardio: regular rhythm, S1, S2, no murmur GI: Abdomen is not distended, soft and non tender, bowel sounds are present Extremities: moves all 4 ext Psych: RASS 0, congruent mood and normal affect. Psych Mental Status: mental status grossly normal Speech and Movement: speech and movement normal Mood: congruent mood Affect: normal affect DS: Data Vitals/I&O Vitals and I&O: Vital Signs Temperature 36.7 C 07/21/24 08:00 Temperature Source Tympanic 07/21/24 08:00 Pulse 77 07/21/24 03:28 Pulse Rhythm Regular 07/18/24 18:48 Pulse 95 H 07/18/24 17:43 Respiratory Rate 20 07/21/24 03:28 Respiratory Effort Normal, Non-Labored 07/18/24 18:48 Respiratory Depth Normal 07/18/24 18:48 Respiratory Pattern Normal 07/18/24 18:48 Blood Pressure 137/61 07/21/24 08:00 Blood Pressure Mean 86 07/21/24 08:00 Blood Pressure Position Sitting 07/18/24 13:29 Pulse Oximetry 92 07/21/24 08:00 Oxygen Delivery Method Room Air 07/21/24 08:00 Oxygen Flow Rate 0 07/21/24 08:00 Fraction of Inspired Oxygen (FIO2) 2 07/19/24 08:04 Pain Level 0 07/21/24 03:28 Comment RN notified 07/20/24 11:28 Intake & Output 07/20/24 07/20/24 07/21/24 11:59 23:59 11:59 Intake Total 1220 / 2610 1390 / 2610 1200 / 1200 Output Total 600 / 600 200 / 200 Balance 2009 1390 / 2009 1000 / 1000 Intake: IV 1110 / 2260 1150 / 2260 1200 / 1200 Oral 110 / 350 240 / 350 Output: Urine 600 / 600 200 / 200 Other: Urine Color Yellow Yellow Yellow Urine Appearance Clear Clear Urine Odor Normal Normal Comment pt stated they voided in toilet Stool Size Moderate Small Stool Characteristics Formed Soft Formed Data Completed and Pending Labs on day of discharge: Labs from last 24 hours 07/21/24 07/18/24 07:30 14:46 WBC 4.49 RBC 5.36 Hgb 15.8 Hct 49.8 MCV 93 MCH 29.5 MCHC 31.7 L RDW 14.4 H Plt Count 52 L MPV Immature Gran % 0.2 Neutrophils % 61.7 Lymphocytes % 24.3 Monocytes % 11.1 Eosinophils % 2.0 Basophils % 0.7 Nucleated RBC % 0.0 Absolute Neutrophils 2.77 Absolute Lymphocytes 1.09 L Absolute Monocytes 0.50 Absolute Eosinophils 0.09 Absolute Basophils 0.03 RBC Morphology Normal Sodium 142 Potassium 3.7 D Chloride 104 Carbon Dioxide 33.3 H Anion Gap 4.7 BUN 28 H Creatinine 1.1 Est GFR (CKD-EPI 2020) 69.57 Glucose 115 H Calcium 8.7 Magnesium 1.7 L B. divergens/MO-1 PCR Negative Babesia duncani (PCR) Negative Babesia microti DNA PCR Negative Lyme Disease Antibody Negative E.chaffeensis DNA (PCR) Negative E.ewingii/canis DNA PCR Negative E.muris eauclairensis (PCR) Negative A. phagocytophilum (PCR) Positive A Blood B. miyamotoi (PCR) Negative Preliminary micro results at discharge 07/18/24 18:02 Blood Blood Culture - Preliminary NO GROWTH 48 HOURS 07/18/24 17:18 Blood Blood Culture - Preliminary NO GROWTH 48 HOURS PFSH All Active Problems (Updated 07/19/24 @ 12:34 by Yudith Agudelo NP) Gout (Chronic) On deep vein thrombosis (DVT) prophylaxis (Acute) HONG (acute kidney injury) (Acute) Acute hypoxic respiratory failure (Acute) Hypoxia (Acute) Pneumonia (Acute) Acute hypotension (Acute) Hypomagnesemia (Acute) Chest pain (Acute 01/23/13) Unstable angina (Acute 01/23/13) Diabetes mellitus type 2, controlled (Chronic) Hypertension (Chronic) Hyperlipidemia (Chronic) Medical History (Updated 07/19/24 @ 12:34 by Yudith Agudelo NP) CAD (coronary artery disease), [place] coronary artery Social History Smoking/Tobacco Use Status: Former Tobacco Use Smoking risk assessment performed?: Yes Alcohol Intake: never Drug use: Never Substance use type: does not use Housing: house Do you feel safe in your relationship?: Yes Time Spent with Patient Time Spent with Patient: 70-84 minutes4 Time was spent: preparing to see the patient(eg.review tests), obtaining and/or reviewing separately otained hiistory, ordering medications,tests, procedures, referring, communicating with other health patient care nursing assistant, indepentently interpreting results, counseling the patient and care coordination
--- NOTE | 2024-07-21 10:47 | PDOC.CMDIS ---
Date of service: 07/21/24 Time of Service: 10:47 LACE Index Scoring Tool Questions: Length of Stay (in days): 3 Was the patient admitted via the E.D.?: Yes Comorbidities: Diabetes w/o Complication E.D. Visits: 1 Answers: Total Score: 8 Risk of Readmission: Low Risk Care Management Discharge Plan Reason for Hospitalization: Severe sepsis, LL CAP, HONG Discharge Plan: Ivan will discharge home with new services of [facility] RN and PT. He will follow up with his community providers and continue per his plan of care. He will transport via private vehicle by . Patient/Family Education Needs: Review discharge instructions, activity, limitations and plan of care. Discuss Ask Me Three. Services Needed at Discharge: Home Health Care Services (New HH RN/PT) SDOH Health Related Social Needs: No Data to Display
--- NOTE | 2024-07-21 10:48 | PDOC.HHF2F_ITS ---
Home Health Referral Home Health Orders Clinical synopsis of why skilled professionals are needed: This [age] years old male patient please mail patient medical history hypertension, diabetes, stroke presented to the ED for evaluation of dizziness chills and subjective fevers. Workup in the ED was positive for chest x-ray revealing increased markings pain suspicious for pneumonia. Blood work was unremarkable except for creatinine of 53 and creatinine of 1.5 with baseline of 1.0. The patient presented with hypotension, tachypnea with respiratory rate 22 and tachycardia with heart rate in the 90s; also hypoxic at 88%on ambulation requiring oxygen cannula with improvement at 94%. The patient was treated with IV fluid, ceftriaxone and IV azithromycin and was admitted to the medical surgical floor for hypoxic respiratory failure, severe sepsis, left lower lobe pneumonia and HONG. D/t now confirmed anaplasmosis, azithromycin was stopped and doxycylcline was initiated.Blood cultures were negative. The patient will be discharged home with home health nursing and physical therapy on cefpodoxime, doxycycline and a short course of probiotics.The patient was hemodynamically stable, on room air, and afebrile for over 24 hours. Follow-up with PCP within 7 days of discharge, please. Discussed with Dr. Albright Registered Nurse: Check all that apply Instruct on new or changed medication(s)/assess compliance: Ordered Physical Therapist: Check all that apply Increase strength & endurance for safe mobility at home: Ordered To design/establish home maintenance program: Ordered Home safety evaluation and teaching/gait training including stair management (if applicable): Ordered Home Bound Status Describe why leaving home would require a considerable and taxing effort: Requires frequent rest periods Encounter Date and Reason: I certify that a FTF encounter for this patient was performed on July 21, 2024 and that such encounter was related to the primary reason the patient requires home health services. The encounter was conducted in the following manner: * By me as the certifying physician, ORTHODONTIC ASSISTANT, PA or * By an inpatient physician, ORTHODONTIC ASSISTANT or PA during an inpatient stay who communicated findings to me, Certification And Authentication I certify that I composed the above information based on my clinical judgment relating to this patient's medical condition and, if applicable, clinical findings communicated to me by the NPP or inpatient physician who performed the FTF encounter. Name of Provider that will be monitoring home health services: Kulwant Escobedo
--- NOTE | 2024-07-21 10:58 | PTTR_ITS ---
PT Notes Visit Reasons: Severe sspsis, LL CAP, HONG Inpatient Physical Therapy Treatment Note [facility] Date: 07/21/2024 PRECAUTIONS:fall risk IV access R Hand SUBJECTIVE:Pt reports [facility] called yesterday and told his [facility]. OBJECTIVE:Pt presented seated in chair IV infusing RUE ? PAIN: denies VITALS: ?Monitored via telemetry sats 95% pre and post activity on RA Therapeutic Activities ([id number][]): Direct one-on-one instruction in dynamic activities to improve functional performance. ? BED MOBILITY/TRANSFERS? Rolling L/R: independent Supine-sit: independent ? Sit-supine: independent? Sit-stand:SBA? Stand-sit: SBA ? Bed-Chair:SBA with FWW? Chair-bed:SBA with FWW Provided skilled cues and instruction on performance and technique throughout. Ambulation Facilitated safe and correct performance of level surface ambulation covering a distance of 25 feet x 1, 150 feet x 2 using use front wheeled walker with stand by assist Did not report of any increased pain. Denied headache, chest pain, and lightheadedness throughout activity. Minimal verbal cueing provided for AD management, directional changes, and posture. Pt with no LOB and less verbal cues to look ahead vs at his feet. ? Stairs: 3 4 steps? and 2 6 steps with rails SBA with reciprocal pattern x 3 trials? ASSESSMENT:? tolerates session well. Pt with no LOB during ambulation . Pt required less cues for looking ahead as compared to prior session. Pt with improved activity tolerance this session. Pt may benefit from use of footwear/shoes to provide slight anterior weight shift to reduce risk of posteri or LOB . Pt educated and stated he has slippers with a back he uses indoor and sneakers from [employer] for outdoor. PLAN: 1-2x/day, 7 days/week x 1 week. Plan of care has been reviewed with the CERTIFIED VETERINARY TECHNICIAN providing the service under Physical Therapy direction. Initiate Physical Therapy intervention for strengthening, bed mobility, transfers, gait, stairs, balance training, use of assistive device. TREATMENT CODE/TIME: 47976/ [id number] DISCHARGE RECOMMENDATION: Home with HHPT and use of FWW
--- NOTE | 2024-07-21 11:25 | CHAPLAIN ---
Shukri was sitting up in the chair when I visited, and happy to tell me that he's going home today and his will pick him up.
== END 2024-07-21 11:53 | disposition home health service (06) | DRG 871 ==
LOC: ER 17:22 → MS 18:11
PROVIDERS: Emergency Medicine; Admitting Provider Family Medicine; Emergency Provider Emergency Medicine; PCP Internal Medicine; Responsible Provider Nurse Practitioner Acute Care; Visit Provider Family Medicine
DX: A41.9 Sepsis, unspecified organism (principal); J18.9 Pneumonia, unspecified organism; J96.01 Acute respiratory failure with hypoxia; N17.9 Acute kidney failure, unspecified; R65.20 Severe sepsis without septic shock; I10 Essential (primary) hypertension; E78.5 Hyperlipidemia, unspecified; E11.9 Type 2 diabetes mellitus without complications; E83.42 Hypomagnesemia; I25.10 Atherosclerotic heart disease of native coronary artery without angina pectoris; I44.7 Left bundle-branch block, unspecified; I95.9 Hypotension, unspecified; Z79.4 Long term (current) use of insulin; Z79.85 Long-term (current) use of injectable non-insulin antidiabetic drugs; Z86.73 Personal history of transient ischemic attack (TIA), and cerebral infarction without residual deficits; Z79.899 Other long term (current) drug therapy
CPT/HCPCS: 00123; 36415; 36416; 80048; 80053; 82805; 82962; 84145; 87040; 87637; 87798; 93005; 94761; 96360; 96361; 97112; 97162; 97530; 99285; J1650; 71045; 81003; 81015; 83735; 84443; 84484; 85025; 85610; 85730; 86618; 93010; 94640; 94760; 99223; 99232; 99233; 99239; J0456; J0696; J1815; J3475; J7620